=== PATIENT | female | born 1955 | race Caucasian/White ===

== ENCOUNTER 2018-05-20 02:48 | Inpatient (IN) | payer OTHER ==
[2018-05-20] MEDS ORDERED: SODIUM CHLORIDE 0.9% 1,000 ML IV STA (03:02)
--- NOTE | 2018-05-20 03:17 | ED ---
General Adult HPI - General Stated complaint: Abd pain Time Seen by Provider: 05/20/18 03:02 - History of Present Illness Initial comments: Milton Neumann is a 63-year-old female with a history of bowel resection and obstructions in the past with an ileostomy bag presents the ER today for evaluation of abdominal pain and decreased ileostomy output. Patient reports that she has not had an distraction or surgery in her abdomen for 12 years. She states that she was in her usual state of health until Monday. She emptied her ileostomy bag Monday morning. Throughout the day on Monday she's had progressively worsening abdominal pain and has not had any ileostomy output. This evening the pain became unbearable which prompted her come to the ER for evaluation. Patient reports she has severe nausea but is not experiencing any vomiting. - Related Data Home Medications Medication Instructions Recorded Confirmed Levothyroxine Sodium [Synthroid] 100 mcg PO DAILY 06/27/15 06/27/15 Mesalamine [Pentasa] 500 mg PO QID 06/27/15 06/27/15 Allergies Allergy/AdvReac Type Severity Reaction Status Date / Time Sulfa (Sulfonamide Allergy Unknown Verified 06/27/15 18:57 Antibiotics) Review of Systems ROS Statement: Those systems with pertinent positive or pertinent negative responses have been documented in the HPI. ROS Other: All systems not noted in ROS Statement are negative. Past Medical History Past Medical History: Thyroid Disorder Additional Past Medical History / Comment(s): chrons History of Any Multi-Drug Resistant Organisms: None Reported Past Surgical History: Bowel Resection, Cholecystectomy, Hysterectomy Additional Past Surgical History / Comment(s): colostomy, thyroidectomy Past Psychological History: No Psychological Hx Reported Past Alcohol Use History: None Reported Past Drug Use History: None Reported General Exam - General Exam Comments Initial Comments: Physical Exam GENERAL: Patient is well-developed and well-nourished. Patient is nontoxic and well- hydrated and is in no distress. HENT: Normocephalic, Atraumatic. EYES: PERRL, EOMI PULMONARY: Unlabored respirations. No audible rales rhonchi or wheezing was noted. CARDIOVASCULAR: There is a regular rate and rhythm without any murmurs gallops or rubs. ABDOMEN: Ileostomy bag and right lower quadrant with no output Abdomen is distended and tender SKIN: Skin is clear with no lesions or rashes and otherwise unremarkable. : Deferred NEUROLOGIC: Patient is alert and oriented x3. Moving all extremities spontaneously MUSCULOSKELETAL: Normal extremities with adequate strength and full range of motion. No lower extremity swelling or edema. No calf tenderness. PSYCHIATRIC: Normal psychiatric evaluation. Limitations: no limitations Course Vital Signs 05/20/18 03:31 Temperature 98.0 F Pulse Rate 67 Respiratory 16 Rate Blood Pressure 129/67 O2 Sat by Pulse 97 Oximetry Medical Decision Making - Medical Decision Making Patient was seen and evaluated, history is obtained from patient and EMS History and physical exam are concerning for bowel obstruction given the history of, nausea, abdominal distention and decreased ileostomy output X-ray does confirm small bowel instruction Labs with mildly elevated transaminases NG tube was placed, patient had 300cc of yellow gastric fluids drained Admission orders and general surgery consult placed - Lab Data Result diagrams: 05/20/18 04:03 05/20/18 04:03 Lab Results 05/20/18 05/20/18 05/20/18 Range/Units 04:03 04:03 04:03 WBC 8.5 (3.8-10.6) k/uL RBC 4.09 (3.80-5.40) m/uL Hgb 13.1 (11.4-16.0) gm/dL Hct 38.1 (34.0-46.0) % MCV 93.3 (80.0-100.0) fL MCH 32.2 (25.0-35.0) pg MCHC 34.4 (31.0-37.0) g/dL RDW 12.9 (11.5-15.5) % Plt Count 121 L (150-450) k/uL Neutrophils % 86 % Lymphocytes % 8 % Monocytes % 4 % Eosinophils % 0 % Basophils % 0 % Neutrophils # 7.3 (1.3-7.7) k/uL Lymphocytes # 0.7 L (1.0-4.8) k/uL Monocytes # 0.4 (0-1.0) k/uL Eosinophils # 0.0 (0-0.7) k/uL Basophils # 0.0 (0-0.2) k/uL PT (9.0-12.0) sec INR (<1.2) APTT (22.0-30.0) sec Sodium 140 (137-145) mmol/L Potassium 4.2 (3.5-5.1) mmol/L Chloride 106 (98-107) mmol/L Carbon Dioxide 28 (22-30) mmol/L Anion Gap 6 mmol/L BUN 24 H (7-17) mg/dL Creatinine 0.95 (0.52-1.04) mg/dL Est GFR (CKD-EPI)AfAm 75 (>60 ml/min/1.73 sqM) Est GFR (CKD-EPI)NonAf 65 (>60 ml/min/1.73 sqM) Glucose 115 H (74-99) mg/dL Plasma Lactic Acid Jose 1.8 (0.7-2.0) mmol/L Calcium 9.6 (8.4-10.2) mg/dL Total Bilirubin 1.8 H (0.2-1.3) mg/dL AST 40 H (14-36) U/L ALT 35 (9-52) U/L Alkaline Phosphatase 50 (38-126) U/L Total Protein 6.7 (6.3-8.2) g/dL Albumin 3.5 (3.5-5.0) g/dL Amylase 107 (30-110) U/L Lipase 290 (23-300) U/L Urine Color Urine Appearance (Clear) Urine pH (5.0-8.0) Ur Specific [place] (1.001-1.035) Urine Protein (Negative) Urine Glucose (UA) (Negative) Urine Ketones (Negative) Urine Blood (Negative) Urine Nitrite (Negative) Urine Bilirubin (Negative) Urine Urobilinogen (<2.0) mg/dL Ur Leukocyte Esterase (Negative) Urine RBC (0-5) /hpf Urine WBC (0-5) /hpf Urine WBC Clumps (None) /hpf Ur Squamous Epith Cells (0-4) /hpf Calcium Oxalate Crystal (None) /hpf Urine Bacteria (None) /hpf Urine Mucus (None) /hpf 05/20/18 05/20/18 Range/Units 04:03 04:03 WBC (3.8-10.6) k/uL RBC (3.80-5.40) m/uL Hgb (11.4-16.0) gm/dL Hct (34.0-46.0) % MCV (80.0-100.0) fL MCH (25.0-35.0) pg MCHC (31.0-37.0) g/dL RDW (11.5-15.5) % Plt Count (150-450) k/uL Neutrophils % % Lymphocytes % % Monocytes % % Eosinophils % % Basophils % % Neutrophils # (1.3-7.7) k/uL Lymphocytes # (1.0-4.8) k/uL Monocytes # (0-1.0) k/uL Eosinophils # (0-0.7) k/uL Basophils # (0-0.2) k/uL PT 9.4 (9.0-12.0) sec INR 0.9 (<1.2) APTT 18.1 L (22.0-30.0) sec Sodium (137-145) mmol/L Potassium (3.5-5.1) mmol/L Chloride (98-107) mmol/L Carbon Dioxide (22-30) mmol/L Anion Gap mmol/L BUN (7-17) mg/dL Creatinine (0.52-1.04) mg/dL Est GFR (CKD-EPI)AfAm (>60 ml/min/1.73 sqM) Est GFR (CKD-EPI)NonAf (>60 ml/min/1.73 sqM) Glucose (74-99) mg/dL Plasma Lactic Acid Jose (0.7-2.0) mmol/L Calcium (8.4-10.2) mg/dL Total Bilirubin (0.2-1.3) mg/dL AST (14-36) U/L ALT (9-52) U/L Alkaline Phosphatase (38-126) U/L Total Protein (6.3-8.2) g/dL Albumin (3.5-5.0) g/dL Amylase (30-110) U/L Lipase (23-300) U/L Urine Color Yellow Urine Appearance Clear (Clear) Urine pH 6.0 (5.0-8.0) Ur Specific [place] 1.021 (1.001-1.035) Urine Protein Trace H (Negative) Urine Glucose (UA) Negative (Negative) Urine Ketones Negative (Negative) Urine Blood Trace H (Negative) Urine Nitrite Negative (Negative) Urine Bilirubin Negative (Negative) Urine Urobilinogen <2.0 (<2.0) mg/dL Ur Leukocyte Esterase Moderate H (Negative) Urine RBC 6 H (0-5) /hpf Urine WBC 10 H (0-5) /hpf Urine WBC Clumps Rare H (None) /hpf Ur Squamous Epith Cells <1 (0-4) /hpf Calcium Oxalate Crystal Occasional H (None) /hpf Urine Bacteria Rare H (None) /hpf Urine Mucus Rare H (None) /hpf Disposition Clinical Impression: SBO (small bowel obstruction) Disposition: ADMITTED IP TO THIS HOSP Condition: Stable Is patient prescribed a controlled substance at d/c from ED?: No Referrals: Nancy Meehan MD [Primary Care Provider] - 1-2 days
[2018-05-20] MEDS: MORPHINE SULFATE 4 MG/ML SYRINGE IV STA ×2 (03:42→04:02)
[2018-05-20] MEDS ORDERED: MORPHINE SULFATE/PF 10MG/10ML VL IVP STA (03:59)
[2018-05-20] MEDS ORDERED: MORPHINE SULFATE 4 MG/ML SYRINGE IVP STA (03:59)
[2018-05-20] MEDS ORDERED: ONDANSETRON 4 MG/2 ML VIAL IVP STA (04:00)
--- NOTE | 2018-05-20 04:27 | XR ---
EXAMINATION TYPE: XR KUB DATE OF EXAM: 05/20/2018 COMPARISON: NONE HISTORY: Abdominal pain TECHNIQUE: 2 views FINDINGS: 2 upright views were obtained and show multiple small bowel air-fluid levels. Small bowel i s somewhat dilated. There are numerous surgical clips in the upper and lower abdomen. There is some i nfiltrate at the lateral left lung base. There are no pathologic calcifications over the kidneys. IMPRESSION: Dilated small bowel suggestive of a mechanical small bowel obstruction. Left lower lobe p neumonic infiltrate.
[2018-05-20 04:30] LABS: Albumin 3.5 g/dL (3.5-5.0); Appearance,Urine Clear (Clear); Bacteria,Urine Rare /hpf; Bilirubin,Urine Negative (Negative); Blood,Urine Trace (Negative); Calcium 9.6 mg/dL (8.4-10.2); Calcium Oxalate Crystals,Urine Occasional /hpf; Color,Urine Yellow; Glucose,Urine (UA) Negative (Negative); Ketones,Urine Negative (Negative); Leukocyte Esterase,Urine Moderate (Negative); Mucus,Urine Rare /hpf; Nitrite,Urine Negative (Negative); Potassium 4.2 mmol/L (3.5-5.1); Protein,Urine Trace (Negative); RBC,Urine 6 /hpf (0-5); Specific Gravity,Urine 1.021 (1.001-1.035); Squamous Epithelial Cell,Urine <1 /hpf (0-4); Total Bilirubin 1.8 mg/dL (0.2-1.3); Total Protein 6.7 g/dL (6.3-8.2); Urobilinogen,Urine <2.0 mg/dL (<2.0); WBC,Urine 10 /hpf (0-5)
[2018-05-20 04:33] LABS: Basophils % (A) 0 %; Eosinophils % (A) 0 %; HCT 38.1 % (34.0-46.0); HGB 13.1 gm/dL (11.4-16.0); Lymphocytes # (A) 0.7 k/uL (1.0-4.8); Lymphocytes % (A) 8 %; MCH 32.2 pg (25.0-35.0); MCHC 34.4 g/dL (31.0-37.0); MCV 93.3 fL (80.0-100.0); Mean Platelet Volume 7.2; Monocytes # (A) 0.4 k/uL (0-1.0); Monocytes % (A) 4 %; Neutrophils # (A) 7.3 k/uL (1.3-7.7); Neutrophils % (A) 86 %; Platelet Count 121 k/uL (150-450); RBC 4.09 m/uL (3.80-5.40); RDW 12.9 % (11.5-15.5); WBC 8.5 k/uL (3.8-10.6)
[2018-05-20 04:39] LABS: INR 0.9 (<1.2); Prothrombin Time 9.4 sec (9.0-12.0)
[2018-05-20 05:14] LABS: Partial Thromboplastin Time 18.1 sec (22.0-30.0)
[2018-05-20] MEDS ORDERED: MORPHINE SULFATE 4 MG/ML SYRINGE IV PRN (06:00)
[2018-05-20] MEDS ORDERED: ONDANSETRON 4 MG/2 ML VIAL IVP PRN ×2 (06:00→16:40)
[2018-05-20] MEDS ORDERED: NALOXONE 0.4 MG/ML 1 ML VIAL IV PRN (06:00)
[2018-05-20] MEDS: SODIUM CHLORIDE 0.9% 1,000 ML IV SCH ×2 (06:59→17:53)
[2018-05-20 08:00] VITALS: BMI 26.2
[2018-05-20] MEDS: PANTOPRAZOLE 40 MG/10 ML VIAL IV SCH (08:08)
[2018-05-20] MEDS ORDERED: KETOROLAC 30 MG/ML 1 ML VIAL IVP PRN (16:38)
[2018-05-20] MEDS ORDERED: ACETAMINOPHEN IV (For NPO) 1,000 MG in EMPTY BAG 1 BAG IVPB STA (17:40)
--- NOTE | 2018-05-20 19:15 | P.GSCN ---
History of Present Illness Consult date: 05/20/18 Reason for Consult: abdominal pain, small bowel obstruction History of present illness: The patient is a 63-year-old female who presented to the emergency department concerned about a bowel obstruction. She has a history of a colectomy due to Crohn's about 40 years ago. 12 years ago she developed a small bowel obstruction due to adhesions and had to have a resection. The symptoms seem the same with decreased ostomy output, abdominal pain and bloating. An NG tube was placed in the emergency department and her pain is improved. She is complaining of a headache. She denies any cough or shortness of breath. She denies any urinary burning or odor. She says frequently and her urine samples we'll look like an infection. Denies pneumouria. Denies fistulizing Crohn's disease. She did have a flareup of small bowel Crohn's about 2 years ago and was started on Humira. She had bleeding from a ulcer in the ileum which finally resolved a few months ago. No bleeding since that time. No fevers or chills. Her weight has been stable. Review of Systems All systems: negative Past Medical History Past Medical History: Thyroid Disorder Additional Past Medical History / Comment(s): crohns History of Any Multi-Drug Resistant Organisms: None Reported Past Surgical History: Bowel Resection, Cholecystectomy, Hysterectomy Additional Past Surgical History / Comment(s): ileostomy, thyroidectomy Past Anesthesia/Blood Transfusion Reactions: No Reported Reaction Past Psychological History: No Psychological Hx Reported Smoking Status: Former smoker Past Alcohol Use History: Rare Past Drug Use History: None Reported - Past Family History Daughter(s) Family Medical History: Diabetes Mellitus Medications and Allergies Home Medications Medication Instructions Recorded Confirmed Type Levothyroxine Sodium [Synthroid] 100 mcg PO MOTUWETHFRSA 06/27/15 05/20/18 History Mesalamine [Pentasa] 750 mg PO BID@0800,2100 06/27/15 05/20/18 History Adalimumab [Humira Pen] 40 mg SQ Q14D 05/20/18 05/20/18 History Cholecalciferol [Vitamin D3] 1,000 unit PO DAILY 05/20/18 05/20/18 History Ferrous Sulfate [Feosol] 325 mg PO DAILY 05/20/18 05/20/18 History Magnesium 200 mg PO DAILY 05/20/18 05/20/18 History Mesalamine [Pentasa] 500 mg PO DAILY@1200 05/20/18 05/20/18 History Allergies Allergy/AdvReac Type Severity Reaction Status Date / Time Sulfa (Sulfonamide Allergy Unknown Verified 05/20/18 07:16 Antibiotics) Surgical - Exam Osteopathic Statement: *. No significant issues noted on an osteopathic structural exam other than those noted in the History and Physical/Consult. Vital Signs Temp Pulse Resp BP Pulse Ox 98.0 F 67 16 129/67 97 05/20/18 03:31 05/20/18 03:31 05/20/18 03:31 05/20/18 03:31 05/20/18 03:31 - General well developed, well nourished, no distress - Eyes normal ocular movement - Neck trachea midline, no lymphadectomy - Respiratory normal respiratory effort, clear to auscultation - Cardiovascular Rhythm: regular - Abdomen Abdomen: soft, tender (Mild tenderness), bowel sounds, no guarding, no rigid, no rebound, no distended (No tympany to percussion) Results - Labs 05/20/18 04:03 05/20/18 04:03 Abnormal Lab Results - Last 24 Hours (Table) 05/20/18 05/20/18 05/20/18 Range/Units 04:03 04:03 04:03 Plt Count 121 L (150-450) k/uL Lymphocytes # 0.7 L (1.0-4.8) k/uL APTT 18.1 L (22.0-30.0) sec BUN 24 H (7-17) mg/dL Glucose 115 H (74-99) mg/dL Total Bilirubin 1.8 H (0.2-1.3) mg/dL AST 40 H (14-36) U/L Urine Protein (Negative) Urine Blood (Negative) Ur Leukocyte Esterase (Negative) Urine RBC (0-5) /hpf Urine WBC (0-5) /hpf Urine WBC Clumps (None) /hpf Calcium Oxalate Crystal (None) /hpf Urine Bacteria (None) /hpf Urine Mucus (None) /hpf 05/20/18 Range/Units 04:03 Plt Count (150-450) k/uL Lymphocytes # (1.0-4.8) k/uL APTT (22.0-30.0) sec BUN (7-17) mg/dL Glucose (74-99) mg/dL Total Bilirubin (0.2-1.3) mg/dL AST (14-36) U/L Urine Protein Trace H (Negative) Urine Blood Trace H (Negative) Ur Leukocyte Esterase Moderate H (Negative) Urine RBC 6 H (0-5) /hpf Urine WBC 10 H (0-5) /hpf Urine WBC Clumps Rare H (None) /hpf Calcium Oxalate Crystal Occasional H (None) /hpf Urine Bacteria Rare H (None) /hpf Urine Mucus Rare H (None) /hpf Diabetes panel 05/20/18 Range/Units 04:03 Sodium 140 (137-145) mmol/L Potassium 4.2 (3.5-5.1) mmol/L Chloride 106 (98-107) mmol/L Carbon Dioxide 28 (22-30) mmol/L BUN 24 H (7-17) mg/dL Creatinine 0.95 (0.52-1.04) mg/dL Glucose 115 H (74-99) mg/dL Calcium 9.6 (8.4-10.2) mg/dL AST 40 H (14-36) U/L ALT 35 (9-52) U/L Alkaline Phosphatase 50 (38-126) U/L Total Protein 6.7 (6.3-8.2) g/dL Albumin 3.5 (3.5-5.0) g/dL Calcium panel 05/20/18 Range/Units 04:03 Calcium 9.6 (8.4-10.2) mg/dL Albumin 3.5 (3.5-5.0) g/dL Pituitary panel 05/20/18 Range/Units 04:03 Sodium 140 (137-145) mmol/L Potassium 4.2 (3.5-5.1) mmol/L Chloride 106 (98-107) mmol/L Carbon Dioxide 28 (22-30) mmol/L BUN 24 H (7-17) mg/dL Creatinine 0.95 (0.52-1.04) mg/dL Glucose 115 H (74-99) mg/dL Calcium 9.6 (8.4-10.2) mg/dL Adrenal panel 05/20/18 Range/Units 04:03 Sodium 140 (137-145) mmol/L Potassium 4.2 (3.5-5.1) mmol/L Chloride 106 (98-107) mmol/L Carbon Dioxide 28 (22-30) mmol/L BUN 24 H (7-17) mg/dL Creatinine 0.95 (0.52-1.04) mg/dL Glucose 115 H (74-99) mg/dL Calcium 9.6 (8.4-10.2) mg/dL Total Bilirubin 1.8 H (0.2-1.3) mg/dL AST 40 H (14-36) U/L ALT 35 (9-52) U/L Alkaline Phosphatase 50 (38-126) U/L Total Protein 6.7 (6.3-8.2) g/dL Albumin 3.5 (3.5-5.0) g/dL - Imaging Abdominal x-ray: report reviewed, image reviewed Assessment and Plan (1) Crohns disease Current Visit: Yes Status: Acute Code(s): K50.90 - CROHN'S DISEASE, UNSPECIFIED, WITHOUT COMPLICATIONS SNOMED Code(s): 17581471 (2) SBO (small bowel obstruction) Current Visit: Yes Status: Acute Code(s): K56.609 - UNSP INTESTNL OBST, UNSP TO PARTIAL VERSUS COMPLETE OBST SNOMED Code(s): 173066180 Plan: The patient's been made nothing by mouth. NG tube has been placed. We'll do serial exams and serial x-rays. Check a urine culture to see if she has any urinary tract infection. She did receive a dose of ceftriaxone in the emergency department. Further recommendations to follow.
--- NOTE | 2018-05-20 23:09 | P.HPIM ---
History of Present Illness H&P Date: 05/20/18 Chief Complaint: Abdominal pain Patient is a 63-year-old female with a known history of Crohn's disease and colon resection with colostomy bag placement, lower extremity DVT and GI bleed currently not on any anticoagulation and the previous history of bowel obstruction about 12 years ago came to ER with complaints of abdominal pain and decreased ileostomy output for the past 2 days. Patient says that she felt like when she had bowel obstruction. Patient has been having worsening abdominal pain and has not had any ileostomy output. Patient came to ER for further evaluation. Abdominal x-ray is a history of bowel obstruction area patient was placed on NG tube and continued on IV fluids and pain management. Otherwise patient denied any complaints of chest pain or shortness of breath. No cough or sputum production. No fever no chills. No nausea vomiting or abdominal pain. No recent diarrhea. No recent illnesses. No recent travel. Patient did have GI bleed due to anticoagulation. Anticoagulation has been discontinued. Patient was placed on Humira. GI bleed has stopped about a year ago patient was discontinued on Humira currently. Review of Systems Constitutional: Patient denies any fever or chills . No generalized weakness or weight loss. Abdomen: Abdominal pain. No nausea no vomiting. Decreased output from the ileostomy bag. Cardiovascular: Patient denies any chest pain or short of breath no palpitations. Respiratory: patient denied any cough is from production. No shortness of breath Neurologic: Patient denied any numbness or tingling headache. Musculoskeletal: Patient denies any complaints of joint swelling or deformity. Skin: Negative Psychiatric: Negative Endocrine: No heat or cold intolerance. No recent weight gain. Genitourinary: No dysuria or hematuria. All other 14 point ROS negative except the above Past Medical History Past Medical History: Thyroid Disorder Additional Past Medical History / Comment(s): crohns History of Any Multi-Drug Resistant Organisms: None Reported Past Surgical History: Bowel Resection, Cholecystectomy, Hysterectomy Additional Past Surgical History / Comment(s): ileostomy, thyroidectomy Past Anesthesia/Blood Transfusion Reactions: No Reported Reaction Past Psychological History: No Psychological Hx Reported Smoking Status: Former smoker Past Alcohol Use History: Rare Past Drug Use History: None Reported - Past Family History Daughter(s) Family Medical History: Diabetes Mellitus Medications and Allergies Home Medications Medication Instructions Recorded Confirmed Type Levothyroxine Sodium [Synthroid] 100 mcg PO MOTUWETHFRSA 06/27/15 05/20/18 History Mesalamine [Pentasa] 750 mg PO BID@0800,2100 06/27/15 05/20/18 History Adalimumab [Humira Pen] 40 mg SQ Q14D 05/20/18 05/20/18 History Cholecalciferol [Vitamin D3] 1,000 unit PO DAILY 05/20/18 05/20/18 History Ferrous Sulfate [Feosol] 325 mg PO DAILY 05/20/18 05/20/18 History Magnesium 200 mg PO DAILY 05/20/18 05/20/18 History Mesalamine [Pentasa] 500 mg PO DAILY@1200 05/20/18 05/20/18 History Allergies Allergy/AdvReac Type Severity Reaction Status Date / Time Sulfa (Sulfonamide Allergy Unknown Verified 05/20/18 07:16 Antibiotics) Physical Exam Vitals: Vital Signs Temp Pulse Pulse Resp BP BP Pulse Ox 05/20/18 20:25 98.7 F 65 18 102/62 94 L 05/20/18 15:00 98.1 F 78 18 121/75 95 05/20/18 07:29 97.4 F L 72 16 107/66 96 05/20/18 07:13 97.7 F 68 16 125/70 98 05/20/18 03:31 98.0 F 67 16 129/67 97 Intake and Output 05/20/18 05/20/18 05/21/18 14:59 22:59 06:59 Other: # Voids 1 # Bowel Movements 1 Weight 63.049 kg PHYSICAL EXAMINATION: Patient is lying in the bed comfortably, no acute distress, awake alert and oriented.. HEENT: Normocephalic. Neck is supple. Pupils reactive. Nostrils clear. Oral cavity is moist. Ears reveal no drainage. Neck reveals no JVD, carotid bruits, or thyromegaly. CHEST EXAMINATION: Trachea is central. Symmetrical expansion. Lung witt clear to auscultation and percussion. CARDIAC: Normal S1, S2 with no gallops. No murmurs ABDOMEN: Soft. Bowel sounds diminished. Colostomy bag in place. No guarding no rigidity. No organomegaly. No abdominal bruits. Extremities: reveal no edema. No clubbing or cyanosis Neurologically awake, alert, oriented x3 with well-coordinated movements. No focal deficits noted Skin: No rash or skin lesions. Psychiatric: Coperative. Nonsuicidal Musculoskeletal: No joint swelling or deformity. Normal range of motion. Results CBC & Chem 7: 05/20/18 04:03 05/20/18 04:03 Labs: Abnormal Lab Results - Last 24 Hours (Table) 05/20/18 05/20/18 05/20/18 Range/Units 04:03 04:03 04:03 Plt Count 121 L (150-450) k/uL Lymphocytes # 0.7 L (1.0-4.8) k/uL APTT 18.1 L (22.0-30.0) sec BUN 24 H (7-17) mg/dL Glucose 115 H (74-99) mg/dL Total Bilirubin 1.8 H (0.2-1.3) mg/dL AST 40 H (14-36) U/L Urine Protein (Negative) Urine Blood (Negative) Ur Leukocyte Esterase (Negative) Urine RBC (0-5) /hpf Urine WBC (0-5) /hpf Urine WBC Clumps (None) /hpf Calcium Oxalate Crystal (None) /hpf Urine Bacteria (None) /hpf Urine Mucus (None) /hpf 05/20/18 Range/Units 04:03 Plt Count (150-450) k/uL Lymphocytes # (1.0-4.8) k/uL APTT (22.0-30.0) sec BUN (7-17) mg/dL Glucose (74-99) mg/dL Total Bilirubin (0.2-1.3) mg/dL AST (14-36) U/L Urine Protein Trace H (Negative) Urine Blood Trace H (Negative) Ur Leukocyte Esterase Moderate H (Negative) Urine RBC 6 H (0-5) /hpf Urine WBC 10 H (0-5) /hpf Urine WBC Clumps Rare H (None) /hpf Calcium Oxalate Crystal Occasional H (None) /hpf Urine Bacteria Rare H (None) /hpf Urine Mucus Rare H (None) /hpf Microbiology - Last 24 Hours (Table) 05/20/18 04:03 Urine Culture - Preliminary Urine,Voided Thrombosis Risk Factor Assmnt - DVT/VTE Prophylaxis DVT/VTE Prophylaxis: Mechanical Prophylaxis ordered - Choose All That Apply Each Risk Factor Represents 2 Points: Age 61-74 years Each Risk Factor Represents 3 Points: History of DVT/PE Thrombosis Risk Factor Assessment Total Risk Factor Score: 5 Thrombosis Risk Factor Assessment Level: High Risk Assessment and Plan Assessment: Abdominal pain secondary to acute small bowel obstruction History of bowel obstruction about 12 years ago status post lysis of adhesions Crohn's disease with history of colectomy about 40 years ago History of GI bleed History of lower extremity DVT DVT prophylaxis. Heparin was offered but patient refuses to take heparin subcu. Plan: Patient will be continued on IV hydration. Pain management and NG tube was placed. Continue with serial abdominal exam and x-rays. Gen. surgery was consulted. We will continue to follow and further recommendations based on the clinical course. Prognosis is guarded. Time with Patient: Greater than 30
[2018-05-21] MEDS: SODIUM CHLORIDE 0.9% 1,000 ML IV SCH ×3 (03:13→22:05)
[2018-05-21 08:24] LABS: Albumin 2.8 g/dL (3.5-5.0); Calcium 8.3 mg/dL (8.4-10.2); Total Bilirubin 3.6 mg/dL (0.2-1.3); Total Protein 5.7 g/dL (6.3-8.2)
--- NOTE | 2018-05-21 08:32 | XR ---
EXAMINATION TYPE: XR chest 2V DATE OF EXAM: 05/21/2018 COMPARISON: 06/27/2015 HISTORY: Weakness TECHNIQUE: Frontal and lateral views of the chest are obtained. FINDINGS: There is chronic interstitial prominence dating back to 2016. Mild multilevel degenerative changes of the spine are noted. Enteric tube has been placed with its fenestrated portion appearing just above the gastroesophageal junction. Advancement of at least 3 cm is recommended for optimal pato cement. No sizable pneumothorax or pleural effusion. Cardiomediastinal silhouette appears within norm al limits. Surgical clips are noted within the right mid abdomen. IMPRESSION: 1. Chronic changes with no acute cardiopulmonary process. 2. Slightly cephalad placement of the enteric tube which should be advanced approximately 3 cm for op timal placement.
[2018-05-21] MEDS: PANTOPRAZOLE 40 MG/10 ML VIAL IV SCH (08:33)
--- NOTE | 2018-05-21 08:41 | XR ---
EXAMINATION TYPE: XR KUB DATE OF EXAM: 05/21/2018 7:06 AM CLINICAL HISTORY: Small bowel obstruction. Questionable pneumonia. TECHNIQUE: Supine image of the abdomen was obtained. COMPARISON: FINDINGS: Few small bowel air-fluid levels remain within the pelvis although there is interval improv ement in comparison to the prior. Enteric tube has been placed again with its fenestrated portion abo ve the gastroesophageal junction with recommendation of advancement approximately 3 cm or more as dis cussed on the chest radiograph of the same date. No pneumoperitoneum is noted. Scattered surgical cli ps are noted throughout the abdomen and pelvis. [id number] bilateral femoral acetabular arthrop athy is seen. IMPRESSION: Improving small bowel dilatation and pelvic air-fluid levels in comparison to the prior o f 05/20/2018. As mentioned on the chest radiograph of the same date enteric tube could be advanced 3 cm or more for optimal placement.
[2018-05-21 08:45] LABS: Basophils # (A) 0.1 k/uL (0-0.2); Basophils % (A) 1 %; Eosinophils # (A) 0.1 k/uL (0-0.7); Eosinophils % (A) 2 %; HCT 35.5 % (34.0-46.0); HGB 11.8 gm/dL (11.4-16.0); Lymphocytes # (A) 1.1 k/uL (1.0-4.8); Lymphocytes % (A) 21 %; MCH 32.4 pg (25.0-35.0); MCHC 33.3 g/dL (31.0-37.0); MCV 97.4 fL (80.0-100.0); Mean Platelet Volume 7.5; Monocytes # (A) 0.4 k/uL (0-1.0); Monocytes % (A) 7 %; Neutrophils # (A) 3.6 k/uL (1.3-7.7); Neutrophils % (A) 67 %; Platelet Count 101 k/uL (150-450); RBC 3.65 m/uL (3.80-5.40); RDW 13.2 % (11.5-15.5); WBC 5.4 k/uL (3.8-10.6)
--- NOTE | 2018-05-21 11:34 | US ---
EXAMINATION TYPE: US abdomen complete DATE OF EXAM: 05/21/2018 COMPARISON: NONE CLINICAL HISTORY: elevated liver function tests. Elevated liver enzymes, cholecystectomy EXAM MEASUREMENTS: Liver Length: 14.1 cm Gallbladder Wall: Surgically absent CBD: 0.4 cm Spleen: 9.1 cm Right Kidney: 9.0 x 4.9 x 4.8 cm Left Kidney: 9.5 x 4.3 x 3.5 cm Technical limitations due to overlying bowel content Pancreas: Obscured by bowel gas Liver: appears wnl Gallbladder: Surgically absent Evidence for sonographic Olivia's sign: no CBD: wnl Spleen: wnl Right Kidney: no evidence of hydronephrosis Left Kidney: Simple appearing cystic area lower pole = 2.0 x 1.6 x 1.6cm Upper IVC: wnl Abd Aorta: visualized portions appear wnl IMPRESSION: 1. Visualized abdomen ultrasound appears unremarkable.
--- NOTE | 2018-05-21 13:17 | P.PN ---
Subjective Progress Note Date: 05/21/18 Principal diagnosis: Ileus versus small bowel obstruction The patient is seen on rounds. She's having less pain. She started having some watery output from the ileostomy. The patient does have a history of her bilirubin being elevated in the past. She denies noticing any jaundice. Denies any bleeding from the ileostomy. Objective - Vital Signs Vital signs: Vital Signs Temp 98.1 F 05/21/18 12:27 Pulse 59 L 05/21/18 12:27 Resp 20 05/21/18 12:27 BP 117/73 05/21/18 12:27 Pulse Ox 96 05/21/18 12:27 Intake & Output 05/20/18 05/21/18 05/21/18 18:59 06:59 18:59 Intake Total 240 Output Total 600 Balance -360 Weight 63.049 kg Intake: Oral 240 Output: Gastric Drainage 600 Other: # Voids 1 1 # Bowel Movements 1 1 # Emeses 1 - Constitutional General appearance: Present: cooperative, no acute distress - Respiratory Respiratory: bilateral: CTA - Cardiovascular Rhythm: regular - Gastrointestinal Gastrointestinal Comment(s): No tympany to percussion. Liquidy ileostomy output General gastrointestinal: Present: normal bowel sounds, soft. Absent: distended , tenderness - Labs CBC & Chem 7: 05/21/18 07:40 05/21/18 07:40 Labs: Abnormal Lab Results - Last 24 Hours (Table) 05/21/18 05/21/18 Range/Units 07:40 07:40 RBC 3.65 L (3.80-5.40) m/uL Plt Count 101 L (150-450) k/uL Chloride 115 H (98-107) mmol/L BUN 19 H (7-17) mg/dL Calcium 8.3 L (8.4-10.2) mg/dL Total Bilirubin 3.6 H (0.2-1.3) mg/dL AST 480 H (14-36) U/L ALT 542 H (9-52) U/L Total Protein 5.7 L (6.3-8.2) g/dL Albumin 2.8 L (3.5-5.0) g/dL Microbiology - Last 24 Hours (Table) 05/20/18 04:03 Urine Culture - Preliminary Urine,Voided - Imaging and Cardiology US - abdomen: report reviewed Assessment and Plan (1) Crohns disease Current Visit: Yes Status: Acute Code(s): K50.90 - CROHN'S DISEASE, UNSPECIFIED, WITHOUT COMPLICATIONS SNOMED Code(s): 00601077 (2) SBO (small bowel obstruction) Current Visit: Yes Status: Acute Code(s): K56.609 - UNSP INTESTNL OBST, UNSP TO PARTIAL VERSUS COMPLETE OBST SNOMED Code(s): 492641237 (3) Elevated liver function tests Current Visit: Yes Status: Acute Code(s): R94.5 - ABNORMAL RESULTS OF LIVER FUNCTION STUDIES SNOMED Code(s): 443012471 Plan: Clinically the patient is improved with regards to her ileus versus small bowel obstruction. The abdominal x-ray is improved in her ostomy is beginning to have output. Her liver function test in go up significantly overnight. Due to this and the fact that she's had Crohn's disease with an ulcer in the terminal ileum, I recommend a GI consult. We'll continue the NG tube decompression, hydration, repeat abdominal series in the morning. Further recommendations to follow.
[2018-05-21] MEDS: KETOROLAC 30 MG/ML 1 ML VIAL IVP PRN ×2 (16:24→22:22)
--- NOTE | 2018-05-22 08:18 | XR ---
EXAMINATION TYPE: XR abdomen 2V DATE OF EXAM: 05/22/2018 COMPARISON: 05/21/2018 HISTORY: Bowel obstruction TECHNIQUE: One view abdominal series FINDINGS: NG tube is seen and there is bilateral consolidation small pleural effusion. Surgical clips in the ab domen are noted there suggestion of an ostomy in the right upper quadrant. Surgical clips in the pelv is also noted. Arthropathy of the hips. Slight curvature of the spine. IMPRESSION: 1. No evidence of bowel dilation. Bowel gas pattern remains nonspecific. There is a right lower quadr ant ostomy. 2. small air collection along the right iliac bone likely contained within bowel. However, CT scan ab domen pelvis recommended to exclude a small amount of free air. Report called to the patient's nurse immediately
[2018-05-22 10:30] LABS: HCT 34.3 % (34.0-46.0); HGB 11.2 gm/dL (11.4-16.0); MCH 31.6 pg (25.0-35.0); MCHC 32.7 g/dL (31.0-37.0); MCV 96.8 fL (80.0-100.0); Mean Platelet Volume 7.4; RBC 3.54 m/uL (3.80-5.40); RDW 12.9 % (11.5-15.5); WBC 4.7 k/uL (3.8-10.6)
[2018-05-22] MEDS: PANTOPRAZOLE 40 MG/10 ML VIAL IV SCH (10:38)
[2018-05-22 10:50] LABS: Albumin 2.8 g/dL (3.5-5.0); Calcium 8.4 mg/dL (8.4-10.2); Potassium 4.3 mmol/L (3.5-5.1); Total Bilirubin 2.6 mg/dL (0.2-1.3); Total Protein 5.6 g/dL (6.3-8.2)
[2018-05-22 10:54] LABS: Platelet Count 89 k/uL (150-450)
--- NOTE | 2018-05-22 11:06 | P.PN ---
Subjective Progress Note Date: 05/22/18 The patient seen on rounds. She's feeling better. She is hungry. Denies any pain. Has had some minimal ileostomy output. Objective - Vital Signs Vital signs: Vital Signs Temp 97.5 F L 05/22/18 08:12 Pulse 56 L 05/22/18 08:12 Resp 18 05/22/18 08:12 BP 126/65 05/22/18 08:12 Pulse Ox 95 05/22/18 08:12 Intake & Output 05/21/18 05/22/18 05/22/18 18:59 06:59 18:59 Intake Total 2045 Output Total 600 500 Balance -600 1545 Intake: Intake, IV Titration 2000 Amount Sodium Chloride 0.9% 1, 2000 000 ml @ 100 mls/hr IV . Q10H DARLENE Rx#:[id number] Oral 45 Output: Gastric Drainage 600 400 Stool 100 Other: Voiding Method Toilet # Voids 3 1 - Constitutional General appearance: Present: cooperative, no acute distress - Respiratory Respiratory: bilateral: CTA - Gastrointestinal General gastrointestinal: Present: normal bowel sounds, soft. Absent: distended , tenderness - Labs CBC & Chem 7: 05/22/18 10:23 05/22/18 10:23 Labs: Abnormal Lab Results - Last 24 Hours (Table) 05/22/18 05/22/18 Range/Units 10:23 10:23 RBC 3.54 L (3.80-5.40) m/uL Hgb 11.2 L (11.4-16.0) gm/dL Plt Count 89 L (150-450) k/uL Chloride 116 H (98-107) mmol/L Carbon Dioxide 19 L (22-30) mmol/L BUN 22 H (7-17) mg/dL Glucose 73 L (74-99) mg/dL Total Bilirubin 2.6 H (0.2-1.3) mg/dL AST 141 H (14-36) U/L ALT 349 H (9-52) U/L Total Protein 5.6 L (6.3-8.2) g/dL Albumin 2.8 L (3.5-5.0) g/dL Microbiology - Last 24 Hours (Table) 05/20/18 04:03 Urine Culture - Final Urine,Voided - Imaging and Cardiology Abdominal x-ray: report reviewed, image reviewed Assessment and Plan (1) Crohns disease Current Visit: Yes Status: Acute Code(s): K50.90 - CROHN'S DISEASE, UNSPECIFIED, WITHOUT COMPLICATIONS SNOMED Code(s): 54212112 (2) SBO (small bowel obstruction) Current Visit: Yes Status: Acute Code(s): K56.609 - UNSP INTESTNL OBST, UNSP TO PARTIAL VERSUS COMPLETE OBST SNOMED Code(s): 847675204 (3) Elevated liver function tests Current Visit: Yes Status: Acute Code(s): R94.5 - ABNORMAL RESULTS OF LIVER FUNCTION STUDIES SNOMED Code(s): 957307155 Plan: Abdominal x-ray has shown improvement regarding the ileus versus small bowel obstruction. There was a question of free air, her belly is totally benign though. Clamp her NG tube. If she is able to tolerate it start her on some clear liquids later and discontinue the NG if she tolerates clear liquids. Await evaluation by GI. Appreciate their input regarding the elevation of the liver function tests and also fact that she had Crohn's with a ulcer in the distal ileum. Her symptoms could be on the basis of Crohn's disease and there may need additional medical treatment. Further recommendations to follow.
--- NOTE | 2018-05-22 11:13 | CT ---
EXAMINATION TYPE: CT abdomen pelvis w con DATE OF EXAM: 05/22/2018 COMPARISON: Correlation radiographs same date HISTORY: 63-year-old female abnormal xray, possible free air TECHNIQUE: Contiguous axial scanning of the abdomen and pelvis following administration of 100 ml Iso rogers 300 IV contrast. Delayed images through the kidneys and coronal/sagittal reconstructions perform ed. CT DLP: 401.6 mGycm Automated exposure control for dose reduction was used. FINDINGS: Heart upper limits of normal in size. Small bilateral pleural effusions are present with bands of ate lectasis at the lung bases. NG tube is in place decompressing the stomach. NG tube tip sharply abuts the right lateral wall at th e junction of the first and second portions of the duodenum and referred to coronal image 22. No focal liver lesion or biliary ductal dilatation. Cholecystectomy clips are present. Portal venous system is patent. Adrenal glands, right kidney, spleen, and pancreas appear within normal limits. Benign 1.6 cm cortica l cyst lower pole left kidney. Postsurgical changes throughout the abdomen with evidence of prior small bowel resection and right lo wer quadrant ileostomy. There seems to be a colectomy with distal Keita's pouch. There is a mesenteric fatty parastomal hernia measuring 6.4 cm wide with the neck of the hernia measu ring 1.9 cm wide. Loops of moderately thickened small bowel are present in the right lower quadrant and right side of t he pelvis with adjacent fat stranding. No abnormal bowel dilatation. No pneumatosis or portal venous gas seen. No free air. No mesenteric or retroperitoneal lymphadenopathy. Small amount of strandy free fluid in the pelvis likely reactive. No pelvic lymphadenopathy. Multiple surgical clips in the pelvis. Bones: Mild degenerative changes at the hips. Facet arthropathy lower lumbar spine with grade 1 anter olisthesis at L5-S1. 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 IMPRESSION: 1. Status post colectomy with distal Keita's pouch and a right lower quadrant ileostomy. Parastomal hernia contains mesenteric fat measuring 6.4 cm wide and the hernia neck measures 1.9 cm wide. 2. Loops of moderately thickened and inflamed small bowel in the right lower quadrant and right side of the pelvis suggesting nonspecific ileitis with infectious or inflammatory causes favored. No signi ficant atherosclerotic disease or filling defect within the portal venous system to suggest an ischem ic etiology. 3. Mild free fluid in the pelvis likely reactive. No free air. 4. An NG tube is present. Note that the tip of the NG tube projects to the right, sharply tenting the wall of the duodenum at the junction of the first and second portions. Consider slightly withdrawing the NG tube to release some tension on the bowel wall here. 5. Small bilateral pleural effusions with adjacent atelectasis.
[2018-05-22] MEDS: SODIUM CHLORIDE 0.9% 1,000 ML IV SCH ×2 (14:44→15:44)
[2018-05-22] MEDS ORDERED: methylPREDNISolone SOD SUCCI 40 MG/ML 1 ML VIAL IV SCH (19:00)
[2018-05-22] MEDS ORDERED: LEVOTHYROXINE 100 MCG TAB PO SCH (19:00)
--- NOTE | 2018-05-22 19:11 | P.CONS ---
History of Present Illness - Reason for Consult Consult date: 05/22/18 Crohn's Requesting physician: Lynsey Saul - Chief Complaint Abdominal pain, decreased output from ostomy - History of Present Illness Very pleasant 63-year-old female with a medical history significant for thyroid disorder as well as ileal Crohn's disease who presented with symptoms of decreased output from ostomy, abdominal distention and pain. On presentation to the hospital the patient had imaging and symptoms suggestive of a bowel obstruction and was started on conservative therapy with nothing by mouth status , and NG tube for decompression. Overall the patient is feeling better, however still has minimal output from the NG tube. The patient has a 42 year history of Crohn's disease originally requiring colectomy with distal Keita pouch formation. The patient had a bowel obstruction in 2006 which she reports was secondary to scar tissue/adhesions. She reports that she has been on biologic therapy for approximately one year after having serologic evidence of active Crohn's disease. The patient underwent ileoscopy in 08/2017 which showed active ulcer formation in the ileum. She reports at that time she was noting blood from her ostomy, however this has resolved while on Humira therapy, which she takes every 2 weeks. Her last dose was prior to admission, less than one week ago. She denies any nausea or vomiting at this time. On presentation she was also noted to have elevation in her liver enzymes with a total bilirubin 2.6 , alkaline phosphatase 87, AST 141 and ALT 349. She reports that this is been seen in the past. She reports intermittently having elevation in her total bilirubin. She is unsure of what investigation she has undergone in the past. Ultrasound showed a common bile duct of 0.4 cm with a surgically absent gallbladder. The patient also had a computed tomography scan which showed findings suggestive of prior colectomy with distal Keita pouch formation and a right lower quadrant ileostomy, with the addition of thickening and inflammation of loops of small bowel suggestive of a nonspecific ileitis. Review of Systems REVIEW OF SYSTEMS: CARDIO: Denies any chest pain or palpitations. PULMONARY: Denies any shortness of breath or wheezing. GENITOURINARY: No dysuria or hematuria. MUSCULOSKELETAL: No weakness reported. SKIN: Denies any new rashes or lesions, jaundice or pallor. PSYCHIATRIC: Denies any depression or anxiety. NEUROLOGY: Denies headache, denies any new focal deficits. EARS: No tinnitus, discharge or new hearing loss. NOSE: No discharge or congestion. EYES: No pain in eyes or change in vision. CONSTITUTIONAL: No recent weight loss. No fever, chills, night sweats. Past Medical History Past Medical History: Thyroid Disorder Additional Past Medical History / Comment(s): crohns History of Any Multi-Drug Resistant Organisms: None Reported Past Surgical History: Bowel Resection, Cholecystectomy, Hysterectomy Additional Past Surgical History / Comment(s): ileostomy, thyroidectomy Past Anesthesia/Blood Transfusion Reactions: No Reported Reaction Past Psychological History: No Psychological Hx Reported Smoking Status: Former smoker Past Alcohol Use History: Rare Past Drug Use History: None Reported - Past Family History Daughter(s) Family Medical History: Diabetes Mellitus Medications and Allergies Home Medications Medication Instructions Recorded Confirmed Type Levothyroxine Sodium [Synthroid] 100 mcg PO MOTUWETHFRSA 06/27/15 05/20/18 History Mesalamine [Pentasa] 750 mg PO BID@0800,2100 06/27/15 05/20/18 History Adalimumab [Humira Pen] 40 mg SQ Q14D 05/20/18 05/20/18 History Cholecalciferol [Vitamin D3] 1,000 unit PO DAILY 05/20/18 05/20/18 History Ferrous Sulfate [Feosol] 325 mg PO DAILY 05/20/18 05/20/18 History Magnesium 200 mg PO DAILY 05/20/18 05/20/18 History Mesalamine [Pentasa] 500 mg PO DAILY@1200 05/20/18 05/20/18 History Allergies Allergy/AdvReac Type Severity Reaction Status Date / Time Sulfa (Sulfonamide Allergy Unknown Verified 05/20/18 07:16 Antibiotics) Physical Exam Vitals: Vital Signs Temp Pulse Pulse Resp BP Pulse Ox 05/22/18 17:04 98.4 F 56 L 20 134/73 96 05/22/18 15:12 56 L 05/22/18 13:06 56 L 05/22/18 12:41 97.4 F L 48 L 18 126/70 97 05/22/18 08:12 97.5 F L 56 L 18 126/65 95 05/22/18 08:00 56 L 05/21/18 23:16 98 F 57 L 18 121/74 94 L Intake and Output 05/22/18 05/22/18 05/22/18 06:59 14:59 22:59 Intake Total 1000 690 Output Total 500 130 470 Balance 500 -130 220 Intake: Intake, IV Titration 1000 Amount Sodium Chloride 0.9% 1, 1000 000 ml @ 100 mls/hr IV . Q10H DARLENE Rx#:[id number] Oral 690 Output: Gastric Drainage 400 130 Stool 100 470 Other: # Voids 1 1 1 On physical examination, patient appears comfortable in no apparent distress. HEAD: Normocephalic, atraumatic. EYES: No scleral icterus. No conjunctival injection. MOUTH: No lesions, tongue midline. NECK: Trachea midline, no gross abnormalities. CHEST: Clear to auscultation with no wheezing or rhonchi appreciated. HEART: Regular rate and rhythm. ABDOMEN: Soft, obese, with ileostomy appearing healthy with minimal output noted. Bowel sounds are positive. No organomegaly. No guarding or rigidity. EXTREMITIES: No pedal edema. SKIN: No rashes, no jaundice. NEUROLOGIC: Alert and oriented x3. No focal deficits. Results CBC & Chem 7: 05/22/18 10:23 05/22/18 10:23 Labs: Abnormal Lab Results - Last 24 Hours (Table) 05/22/18 05/22/18 Range/Units 10:23 10:23 RBC 3.54 L (3.80-5.40) m/uL Hgb 11.2 L (11.4-16.0) gm/dL Plt Count 89 L (150-450) k/uL Chloride 116 H (98-107) mmol/L Carbon Dioxide 19 L (22-30) mmol/L BUN 22 H (7-17) mg/dL Glucose 73 L (74-99) mg/dL Total Bilirubin 2.6 H (0.2-1.3) mg/dL AST 141 H (14-36) U/L ALT 349 H (9-52) U/L Total Protein 5.6 L (6.3-8.2) g/dL Albumin 2.8 L (3.5-5.0) g/dL Microbiology - Last 24 Hours (Table) 05/20/18 04:03 Urine Culture - Final Urine,Voided CT scan - abdomen: report reviewed (computed tomography scan which showed findings suggestive of prior colectomy with distal Keita pouch formation and a right lower quadrant ileostomy, with the addition of thickening and inflammation of loops of small bowel suggestive of a nonspecific ileitis.) Assessment and Plan (1) Crohns disease Narrative/Plan: 40 year history of Crohn's disease requiring prior colectomy with Miki pouch formation. The patient reports a long history of remission, however has been on biologic therapy for over 1 year with Humira with Pentasa as well. She reports that initially prior to be starting on therapy she had noticed blood from her ostomy, however this is resolved on Humira therapy. She reports a remote history of fistula arising disease when first diagnosed in the . She has followed up with a squaring shear operator at [facility]. Current Visit: Yes Status: Acute Code(s): K50.90 - CROHN'S DISEASE, UNSPECIFIED, WITHOUT COMPLICATIONS SNOMED Code(s): 82241488 (2) Elevated liver function tests Narrative/Plan: Unknown etiology, with ultrasound significant for a surgically absent gallbladder with a normal common bile duct. Elevation is both in a cholestatic and hepatocellular pattern. She does note that she has had intermittently high bilirubin in the past. We'll fractionate bilirubin to see if this is direct or indirect. In addition will order a full serology for evaluation. Current Visit: Yes Status: Acute Code(s): R94.5 - ABNORMAL RESULTS OF LIVER FUNCTION STUDIES SNOMED Code(s): 338171903 (3) SBO (small bowel obstruction) Narrative/Plan: Patient has had obstruction in the past due to adhesions secondary to prior abdominal surgeries, however computed tomography scan at this time shows thickening and inflammation of the distal small bowel suggestive of possible active Crohn's disease. Inflammatory markers have been ordered and will start steroid therapy at this time. Current Visit: Yes Status: Acute Code(s): K56.609 - UNSP INTESTNL OBST, UNSP TO PARTIAL VERSUS COMPLETE OBST SNOMED Code(s): 730626197 Plan: Supportive care Diet per surgical service NG tube for surgical service Appreciate recommendations from surgery Solu-Medrol 20 mg every 8 hours added given findings of inflammation on computed tomography scan Await findings from inflammatory markers, ESR and CRP pending Patient has had elevated total bilirubin in the past, however at this time she has both an increase in her liver enzymes in a hepatocellular and cholestatic pattern and will order a full liver serologies for evaluation Thank you for allowing us to dysphagia in the care of this patient we will continue
[2018-05-23] MEDS: SODIUM CHLORIDE 0.9% 1,000 ML IV SCH (01:15)
--- NOTE | 2018-05-23 01:20 | P.PN ---
Subjective Progress Note Date: 05/21/18 Principal diagnosis: Acute small bowel obstruction Patient is a 63-year-old female with a known history of Crohn's disease and colon resection with colostomy bag placement, lower extremity DVT and GI bleed currently not on any anticoagulation and the previous history of bowel obstruction about 12 years ago came to ER with complaints of abdominal pain and decreased ileostomy output for the past 2 days. Patient says that she felt like when she had bowel obstruction. Patient has been having worsening abdominal pain and has not had any ileostomy output. Patient came to ER for further evaluation. Abdominal x-ray is a history of bowel obstruction area patient was placed on NG tube and continued on IV fluids and pain management. Otherwise patient denied any complaints of chest pain or shortness of breath. No cough or sputum production. No fever no chills. No nausea vomiting or abdominal pain. No recent diarrhea. No recent illnesses. No recent travel. Patient did have GI bleed due to anticoagulation. Anticoagulation has been discontinued. Patient was placed on Humira. GI bleed has stopped about a year ago patient was discontinued on Humira currently. 05/21/2018 Patient says that abdominal pain is better. Otherwise continued on NG tube with short action. No fever no chills. General surgery is following. Continued on serial abdominal x-rays. Epigastric and oncology was consulted due to history of Crohn's disease and further management. No fever no chills. No nausea or vomiting. No headache or dizziness or lightheadedness. No chest pain or shortness of breath. Current medications reviewed Objective - Vital Signs Vital signs: Vital Signs Temp 97.9 F 05/23/18 00:29 Pulse 52 L 05/23/18 00:29 Resp 19 05/23/18 00:29 BP 127/80 05/23/18 00:29 Pulse Ox 94 L 05/23/18 00:29 Intake & Output 05/22/18 05/22/18 05/23/18 06:59 18:59 06:59 Intake Total 2045 690 850 Output Total 500 600 950 Balance 1545 90 -100 Intake: Intake, IV Titration 2000 Amount Sodium Chloride 0.9% 1, 2000 000 ml @ 100 mls/hr IV . Q10H DARLENE Rx#:[id number] Oral 45 690 850 Output: Gastric Drainage 400 130 Stool 100 470 950 Other: Voiding Method Toilet Toilet # Voids 1 1 1 - Exam PHYSICAL EXAMINATION: Patient is lying in the bed comfortably, no acute distress, awake alert and oriented.. HEENT: Normocephalic. Neck is supple. Pupils reactive. Nostrils clear. Oral cavity is moist. Ears reveal no drainage. Neck reveals no JVD, carotid bruits, or thyromegaly. CHEST EXAMINATION: Trachea is central. Symmetrical expansion. Lung witt clear to auscultation and percussion. CARDIAC: Normal S1, S2 with no gallops. No murmurs ABDOMEN: Soft. Bowel sounds diminished. Colostomy bag in place. No guarding no rigidity. No organomegaly. No abdominal bruits. Extremities: reveal no edema. No clubbing or cyanosis Neurologically awake, alert, oriented x3 with well-coordinated movements. No focal deficits noted Skin: No rash or skin lesions. Psychiatric: Coperative. Nonsuicidal Musculoskeletal: No joint swelling or deformity. Normal range of motion. - Labs CBC & Chem 7: 05/22/18 10:23 05/22/18 10:23 Labs: Abnormal Lab Results - Last 24 Hours (Table) 05/22/18 05/22/18 Range/Units 10:23 10:23 RBC 3.54 L (3.80-5.40) m/uL Hgb 11.2 L (11.4-16.0) gm/dL Plt Count 89 L (150-450) k/uL Chloride 116 H (98-107) mmol/L Carbon Dioxide 19 L (22-30) mmol/L BUN 22 H (7-17) mg/dL Glucose 73 L (74-99) mg/dL Total Bilirubin 2.6 H (0.2-1.3) mg/dL AST 141 H (14-36) U/L ALT 349 H (9-52) U/L Total Protein 5.6 L (6.3-8.2) g/dL Albumin 2.8 L (3.5-5.0) g/dL Assessment and Plan Assessment: Abdominal pain secondary to acute small bowel obstruction History of bowel obstruction about 12 years ago status post lysis of adhesions Crohn's disease with history of colectomy about 40 years ago History of GI bleed History of lower extremity DVT DVT prophylaxis. Heparin was offered but patient refuses to take heparin subcu. Plan: Patient will be continued on IV hydration. Pain management and NG tube was placed. Continue with serial abdominal exam and x-rays. Gen. surgery is following. We will continue to follow and further recommendations based on the clinical course. Prognosis is guarded. Time with Patient: Greater than 30
--- NOTE | 2018-05-23 01:24 | P.PN ---
Subjective Progress Note Date: 05/22/18 Principal diagnosis: Acute small bowel obstruction Patient is a 63-year-old female with a known history of Crohn's disease and colon resection with colostomy bag placement, lower extremity DVT and GI bleed currently not on any anticoagulation and the previous history of bowel obstruction about 12 years ago came to ER with complaints of abdominal pain and decreased ileostomy output for the past 2 days. Patient says that she felt like when she had bowel obstruction. Patient has been having worsening abdominal pain and has not had any ileostomy output. Patient came to ER for further evaluation. Abdominal x-ray is a history of bowel obstruction area patient was placed on NG tube and continued on IV fluids and pain management. Otherwise patient denied any complaints of chest pain or shortness of breath. No cough or sputum production. No fever no chills. No nausea vomiting or abdominal pain. No recent diarrhea. No recent illnesses. No recent travel. Patient did have GI bleed due to anticoagulation. Anticoagulation has been discontinued. Patient was placed on Humira. GI bleed has stopped about a year ago patient was discontinued on Humira currently. 05/21/2018 Patient says that abdominal pain is better. Otherwise continued on NG tube with short action. No fever no chills. General surgery is following. Continued on serial abdominal x-rays. Epigastric and oncology was consulted due to history of Crohn's disease and further management. No fever no chills. No nausea or vomiting. No headache or dizziness or lightheadedness. No chest pain or shortness of breath. 05/22/2018 Patient says that she feels better today. Did have minimal output into question back. NG tube has been capped and patient was started on clear liquid diet. General surgery is following. Patient did have abdominal x-ray in the a.m. today was suspicious for free air in the abdomen. CT of the abdominal pelvis was done which showed no evidence of free air. Gastroenterology was consulted for Crohn's disease management. Otherwise no fever no chills. Symptomatically much improved. Current medications reviewed Objective - Vital Signs Vital signs: Vital Signs Temp 97.7 F 05/22/18 20:09 Pulse 48 L 05/22/18 20:09 Resp 20 05/22/18 20:09 BP 134/80 05/22/18 20:09 Pulse Ox 98 05/22/18 20:09 Intake & Output 05/22/18 05/22/18 05/23/18 06:59 18:59 06:59 Intake Total 204 690 850 Output Total 500 600 800 Balance 1545 90 50 Intake: Intake, IV Titration 2000 Amount Sodium Chloride 0.9% 1, 2000 000 ml @ 100 mls/hr IV . Q10H [facility] Rx#:[id number] Oral 45 690 850 Output: Gastric Drainage 400 130 Stool 100 470 800 Other: Voiding Method Toilet Toilet # Voids 1 1 1 - Exam PHYSICAL EXAMINATION: Patient is lying in the bed comfortably, no acute distress, awake alert and oriented.. HEENT: Normocephalic. Neck is supple. Pupils reactive. Nostrils clear. Oral cavity is moist. Ears reveal no drainage. Neck reveals no JVD, carotid bruits, or thyromegaly. CHEST EXAMINATION: Trachea is central. Symmetrical expansion. Lung witt clear to auscultation and percussion. CARDIAC: Normal S1, S2 with no gallops. No murmurs ABDOMEN: Soft. Bowel sounds sluggish. Colostomy bag in place. No guarding no rigidity. No organomegaly. No abdominal bruits. Extremities: reveal no edema. No clubbing or cyanosis Neurologically awake, alert, oriented x3 with well-coordinated movements. No focal deficits noted Skin: No rash or skin lesions. Psychiatric: Coperative. Nonsuicidal Musculoskeletal: No joint swelling or deformity. Normal range of motion. - Labs CBC & Chem 7: 05/22/18 10:23 05/22/18 10:23 Labs: Abnormal Lab Results - Last 24 Hours (Table) 05/22/18 05/22/18 Range/Units 10:23 10:23 RBC 3.54 L (3.80-5.40) m/uL Hgb 11.2 L (11.4-16.0) gm/dL Plt Count 89 L (150-450) k/uL Chloride 116 H (98-107) mmol/L Carbon Dioxide 19 L (22-30) mmol/L BUN 22 H (7-17) mg/dL Glucose 73 L (74-99) mg/dL Total Bilirubin 2.6 H (0.2-1.3) mg/dL AST 141 H (14-36) U/L ALT 349 H (9-52) U/L Total Protein 5.6 L (6.3-8.2) g/dL Albumin 2.8 L (3.5-5.0) g/dL Microbiology - Last 24 Hours (Table) 05/20/18 04:03 Urine Culture - Final Urine,Voided Assessment and Plan Assessment: Abdominal pain secondary to acute small bowel obstruction. Improving History of bowel obstruction about 12 years ago status post lysis of adhesions Crohn's disease with history of colectomy about 40 years ago History of GI bleed History of lower extremity DVT DVT prophylaxis. Heparin was offered but patient refuses to take heparin subcu. Plan: Patient will be continued on IV hydration. Pain management and NG tube was placed. Continue with serial abdominal exam and x-rays. Patient is clinically improving with minimal output in the colostomy bag. Patient was started on clear liquid diet. Gen. surgery is following. Gastroenterology was consulted. We will continue to follow and further recommendations based on the clinical course. Prognosis is guarded. Time with Patient: Greater than 30
[2018-05-23] MEDS: methylPREDNISolone SOD SUCCI 40 MG/ML 1 ML VIAL IV SCH ×2 (04:01→10:54)
[2018-05-23] MEDS: LEVOTHYROXINE 100 MCG TAB PO SCH (05:49)
[2018-05-23] MEDS: PANTOPRAZOLE 40 MG/10 ML VIAL IV SCH (08:00)
--- NOTE | 2018-05-23 08:12 | P.PN ---
Subjective Progress Note Date: 05/23/18 Principal diagnosis: Small bowel obstruction elevated liver enzymes Crohn's disease Feels better. Ostomy functioning. Denies abdominal pain. Towering clear liquids. ESR CRP within normal limits. Receiving IV steroids. Afebrile. Objective - Vital Signs Vital signs: Vital Signs Temp 97.9 F 05/23/18 00:29 Pulse 52 L 05/23/18 00:29 Resp 19 05/23/18 00:29 BP 127/80 05/23/18 00:29 Pulse Ox 94 L 05/23/18 00:29 Intake & Output 05/22/18 05/23/18 05/23/18 18:59 06:59 18:59 Intake Total 690 2390 Output Total 600 1350 Balance 90 1040 Intake: Intake, IV Titration 1000 Amount Sodium Chloride 0.9% 1, 1000 000 ml @ 100 mls/hr IV . Q10H [facility] Rx#:[id number] Oral 690 1390 Output: Gastric Drainage 130 Stool 470 1350 Other: Voiding Method Toilet # Voids 1 1 - Exam General appearance: The patient is alert, oriented, in no acute distress. HET: Head is normocephalic and atraumatic. Pupils are equal and reactive. Oropharynx is clear without lesions. Neck: Supple without lymphadenopathy. Trachea midline. Heart: S1 S2. Regular rate and rhythm. Lungs: No crackles or wheezes are heard. Abdomen: Soft, nontender, nondistended with hypoactive bowel sounds. Right- sided ostomy with stool. No peritoneal signs. No palpable organomegaly or masses. Extremities: Normal skin color and turgor. No cyanosis, rash, ulceration, clubbing, or edema. Radial and pedal pulses are 2/4 bilaterally. Neurological: No focal deficits. Strength and sensation are grossly intact. - Labs CBC & Chem 7: 05/22/18 10:23 05/22/18 10:23 Labs: Abnormal Lab Results - Last 24 Hours (Table) 05/22/18 05/22/18 Range/Units 10:23 10:23 RBC 3.54 L (3.80-5.40) m/uL Hgb 11.2 L (11.4-16.0) gm/dL Plt Count 89 L (150-450) k/uL Chloride 116 H (98-107) mmol/L Carbon Dioxide 19 L (22-30) mmol/L BUN 22 H (7-17) mg/dL Glucose 73 L (74-99) mg/dL Total Bilirubin 2.6 H (0.2-1.3) mg/dL AST 141 H (14-36) U/L ALT 349 H (9-52) U/L Total Protein 5.6 L (6.3-8.2) g/dL Albumin 2.8 L (3.5-5.0) g/dL Assessment and Plan (1) Crohns disease Current Visit: Yes Status: Acute Code(s): K50.90 - CROHN'S DISEASE, UNSPECIFIED, WITHOUT COMPLICATIONS SNOMED Code(s): 27537691 (2) Elevated liver function tests Current Visit: Yes Status: Acute Code(s): R94.5 - ABNORMAL RESULTS OF LIVER FUNCTION STUDIES SNOMED Code(s): 062749737 (3) SBO (small bowel obstruction) Current Visit: Yes Status: Acute Code(s): K56.609 - UNSP INTESTNL OBST, UNSP TO PARTIAL VERSUS COMPLETE OBST SNOMED Code(s): 211735632 Plan: 1. Diet advancement per general surgery. 2. Morning chemistries/LFTs pending. Lactic workup for elevated liver enzymes requested. Will discontinue steroids sed rate CRP not elevated; patient also verbalized not wanting to receive steroids if necessary. Assessment and plan a care discussed with Dr. Gomez
[2018-05-23 10:35] LABS: Albumin 3.2 g/dL (3.5-5.0); Bilirubin,Unconjugated 1.8 mg/dL (0.0-1.1); Total Bilirubin 1.8 mg/dL (0.2-1.3); Total Protein 6.2 g/dL (6.3-8.2)
--- NOTE | 2018-05-23 11:13 | P.PN ---
Subjective Progress Note Date: 05/23/18 The patient seen on rounds. She's feeling better today. No nausea or vomiting. Tolerating clear liquids. She like more to eat. Complaining of urinating large amounts. Objective - Vital Signs Vital signs: Vital Signs Temp 98.6 F 05/23/18 08:23 Pulse 49 L 05/23/18 08:49 Resp 16 05/23/18 08:23 BP 127/72 05/23/18 08:23 Pulse Ox 94 L 05/23/18 08:23 Intake & Output 05/22/18 05/23/18 05/23/18 18:59 06:59 18:59 Intake Total 690 2390 Output Total 600 1350 50 Balance 90 1040 -50 Intake: Intake, IV Titration 1000 Amount Sodium Chloride 0.9% 1, 1000 000 ml @ 100 mls/hr IV . Q10H [facility] Rx#:[id number] Oral 690 1390 Output: Gastric Drainage 130 Stool 470 1350 50 Other: Voiding Method Toilet # Voids 1 1 2 - Constitutional General appearance: Present: cooperative, no acute distress - Gastrointestinal General gastrointestinal: Present: normal bowel sounds, soft. Absent: distended , tenderness - Labs CBC & Chem 7: 05/22/18 10:23 05/22/18 10:23 Labs: Abnormal Lab Results - Last 24 Hours (Table) 05/23/18 Range/Units 10:09 Total Bilirubin 1.8 H (0.2-1.3) mg/dL Unconjugated Bilirubin 1.8 H (0.0-1.1) mg/dL AST 87 H (14-36) U/L ALT 275 H (9-52) U/L Total Protein 6.2 L (6.3-8.2) g/dL Albumin 3.2 L (3.5-5.0) g/dL Assessment and Plan (1) Crohns disease Current Visit: Yes Status: Acute Code(s): K50.90 - CROHN'S DISEASE, UNSPECIFIED, WITHOUT COMPLICATIONS SNOMED Code(s): 68067315 (2) SBO (small bowel obstruction) Current Visit: Yes Status: Resolved Code(s): K56.609 - UNSP INTESTNL OBST, UNSP TO PARTIAL VERSUS COMPLETE OBST SNOMED Code(s): 058580852 (3) Elevated liver function tests Current Visit: Yes Status: Acute Code(s): R94.5 - ABNORMAL RESULTS OF LIVER FUNCTION STUDIES SNOMED Code(s): 473528286 Plan: Clinically the patient's improving. If appreciate GI input. We will advance her to a low residue diet. She likely has some thickening of the terminal ileum due to her Crohn's disease. Currently no signs of obstruction so no plans for surgery.
[2018-05-23 17:38] LABS: Iron Saturation 17.01 (12.00-45.00)
--- NOTE | 2018-05-23 18:07 | P.PN ---
Subjective Acute small bowel obstruction Patient is a 63-year-old female with a known history of Crohn's disease and colon resection with colostomy bag placement, lower extremity DVT and GI bleed currently not on any anticoagulation and the previous history of bowel obstruction about 12 years ago came to ER with complaints of abdominal pain and decreased ileostomy output for the past 2 days. Patient says that she felt like when she had bowel obstruction. Patient has been having worsening abdominal pain and has not had any ileostomy output. Patient came to ER for further evaluation. Abdominal x-ray is a history of bowel obstruction area patient was placed on NG tube and continued on IV fluids and pain management. Otherwise patient denied any complaints of chest pain or shortness of breath. No cough or sputum production. No fever no chills. No nausea vomiting or abdominal pain. No recent diarrhea. No recent illnesses. No recent travel. Patient did have GI bleed due to anticoagulation. Anticoagulation has been discontinued. Patient was placed on Humira. GI bleed has stopped about a year ago patient was discontinued on Humira currently. 05/21/2018 Patient says that abdominal pain is better. Otherwise continued on NG tube with short action. No fever no chills. General surgery is following. Continued on serial abdominal x-rays. Epigastric and oncology was consulted due to history of Crohn's disease and further management. No fever no chills. No nausea or vomiting. No headache or dizziness or lightheadedness. No chest pain or shortness of breath. 05/22/2018 Patient says that she feels better today. Did have minimal output into question back. NG tube has been capped and patient was started on clear liquid diet. General surgery is following. Patient did have abdominal x-ray in the a.m. today was suspicious for free air in the abdomen. CT of the abdominal pelvis was done which showed no evidence of free air. Gastroenterology was consulted for Crohn's disease management. Otherwise no fever no chills. Symptomatically much improved. Current medications reviewed 05/23/2018 Patient still improving, she starting liquid diet with no nausea vomiting, no abdominal pain. She does not have bowel movement yet. Surgery team are following the patient Discharge planning 24-48 hours Objective - Vital Signs Vital signs: Vital Signs Temp 97.4 F L 05/23/18 16:02 Pulse 50 L 05/23/18 16:02 Resp 16 05/23/18 16:02 BP 135/75 05/23/18 16:02 Pulse Ox 96 05/23/18 16:02 Intake & Output 05/22/18 05/23/18 05/23/18 18:59 06:59 18:59 Intake Total 690 2390 Output Total 600 1350 195 Balance 90 1040 -195 Intake: Intake, IV Titration 1000 Amount Sodium Chloride 0.9% 1, 1000 000 ml @ 100 mls/hr IV . Q10H [facility] Rx#:[id number] Oral 690 1390 Output: Gastric Drainage 130 145 Stool 470 1350 50 Other: Voiding Method Toilet # Voids 1 1 1 - Exam GENERAL: The patient is alert and oriented x3, not in any acute distress. Well developed, well nourished. HEENT: Pupils are round and equally reacting to light. EOMI. No scleral icterus. No conjunctival pallor. Normocephalic, atraumatic. No pharyngeal erythema. No thyromegaly. CARDIOVASCULAR: S1 and S2 present. No murmurs, rubs, or gallops. PULMONARY: Chest is clear to auscultation, no wheezing or crackles. ABDOMEN: Soft, nontender, nondistended, normoactive bowel sounds. No palpable organomegaly. MUSCULOSKELETAL: No joint swelling or deformity. EXTREMITIES: No cyanosis, clubbing, or pedal edema. NEUROLOGICAL: Gross neurological examination did not reveal any focal deficits. SKIN: No rashes. - Labs CBC & Chem 7: 05/22/18 10:23 05/22/18 10:23 Labs: Abnormal Lab Results - Last 24 Hours (Table) 05/23/18 Range/Units 10:09 Total Bilirubin 1.8 H (0.2-1.3) mg/dL Unconjugated Bilirubin 1.8 H (0.0-1.1) mg/dL AST 87 H (14-36) U/L ALT 275 H (9-52) U/L Total Protein 6.2 L (6.3-8.2) g/dL Albumin 3.2 L (3.5-5.0) g/dL Assessment and Plan Plan: Abdominal pain secondary to acute small bowel obstruction. Improving History of bowel obstruction about 12 years ago status post lysis of adhesions Crohn's disease with history of colectomy about 40 years ago History of GI bleed History of lower extremity DVT DVT prophylaxis. Heparin was offered but patient refuses to take heparin subcu. Plan: Patient will be continued on IV hydration. Pain management and NG tube was placed. Continue with serial abdominal exam and x-rays. Patient is clinically improving with minimal output in the colostomy bag. Patient was started on clear liquid diet. Gen. surgery is following. Gastroenterology was consulted. We will continue to follow and further recommendations based on the clinical course. Prognosis is guarded.
[2018-05-23 18:16] LABS: Hepatitis A Antibody IgM Non-Reactive (Non-Reactive); Hepatitis B Core IgM Non-Reactive (Non-Reactive)
[2018-05-24] MEDS: LEVOTHYROXINE 100 MCG TAB PO SCH (06:24)
[2018-05-24 08:41] VITALS: TEMP 98.2
[2018-05-24] MEDS: PANTOPRAZOLE 40 MG/10 ML VIAL IV SCH (09:07)
--- NOTE | 2018-05-24 10:42 | P.PN ---
Subjective Progress Note Date: 05/24/18 The patient seen on rounds. She's tolerating a diet. Little bit of abdominal cramps. Her ostomy has been working. Objective - Vital Signs Vital signs: Vital Signs Temp 98.2 F 05/24/18 07:33 Pulse 52 L 05/24/18 09:10 Resp 20 05/24/18 09:10 BP 139/86 05/24/18 09:10 Pulse Ox 94 L 05/24/18 07:33 Intake & Output 05/23/18 05/24/18 05/24/18 18:59 06:59 18:59 Output Total 195 50 Balance -195 -50 Weight 63.049 kg Output: Gastric Drainage 145 Stool 50 50 Other: Voiding Method Toilet # Voids 1 1 1 - Constitutional General appearance: Present: cooperative, no acute distress - Gastrointestinal General gastrointestinal: Present: normal bowel sounds, soft. Absent: distended (No tympany to percussion ), tenderness - Labs CBC & Chem 7: 05/22/18 10:23 05/22/18 10:23 Assessment and Plan (1) Crohns disease Current Visit: Yes Status: Acute Code(s): K50.90 - CROHN'S DISEASE, UNSPECIFIED, WITHOUT COMPLICATIONS SNOMED Code(s): 60026775 (2) SBO (small bowel obstruction) Current Visit: Yes Status: Resolved Code(s): K56.609 - UNSP INTESTNL OBST, UNSP TO PARTIAL VERSUS COMPLETE OBST SNOMED Code(s): 175813517 (3) Elevated liver function tests Current Visit: Yes Status: Acute Code(s): R94.5 - ABNORMAL RESULTS OF LIVER FUNCTION STUDIES SNOMED Code(s): 207204052 Plan: Patient is nonsurgical. Recommend low fiber diet. Based on CT findings she probably has a bit of chronic luminal narrowing in the distal colon. We'll let her follow up with GI. I'll follow up on a when necessary basis.
[2018-05-24 12:04] LABS: Ceruloplasmin 28.9 mg/dL (20.0-60.0)
[2018-05-24 13:57] VITALS: BP 111/69; PULSE 61; RESP 16
[2018-05-25 11:55] LABS: Liver/Kidney Microsome Antibod 1.1 UNITS (<=20)
== END 2018-05-24 16:16 | disposition home or self-care (01) | DRG 387 ==
LOC: EC 02:48 → 6PED 06:00
PROVIDERS: ADMIT Internal Medicine; ATTEND Internal Medicine
DX: K50.011 Crohn's disease of small intestine with rectal bleeding (principal); E89.0 Postprocedural hypothyroidism; Z79.890 Hormone replacement therapy; Z83.3 Family history of diabetes mellitus; Z86.718 Personal history of other venous thrombosis and embolism; Z87.891 Personal history of nicotine dependence; Z90.49 Acquired absence of other specified parts of digestive tract; Z90.710 Acquired absence of both cervix and uterus; Z93.2 Ileostomy status; R94.5 Abnormal results of liver function studies; Z88.2 Allergy status to sulfonamides
CPT/HCPCS: 36415; 71046; 74018; 74019; 74177; 76700; 80053; 80074; 80076; 81001; 82103; 82150; 82390; 82728; 83516; 83540; 83550; 83605; 83690; 85025; 85027; 85610; 85652; 85730; 86038; 86140; 86376; 87086; 96361; 96374; 96375; 99285

== ENCOUNTER 2018-09-03 23:46 | Inpatient (IN) | payer OTHER ==
[2018-09-04] MEDS ORDERED: SODIUM CHLORIDE 0.9% 500 ML 500 ML IV STA (00:56)
[2018-09-04] MEDS ORDERED: ONDANSETRON 4 MG/2 ML VIAL IVP STA (00:56)
[2018-09-04 01:24] LABS: Basophils # (A) 0.1 k/uL (0-0.2); Basophils % (A) 1 %; Eosinophils # (A) 0.1 k/uL (0-0.7); Eosinophils % (A) 2 %; HCT 36.7 % (34.0-46.0); HGB 12.7 gm/dL (11.4-16.0); Lymphocytes # (A) 1.5 k/uL (1.0-4.8); Lymphocytes % (A) 23 %; MCH 32.4 pg (25.0-35.0); MCHC 34.5 g/dL (31.0-37.0); MCV 93.8 fL (80.0-100.0); Mean Platelet Volume 7.4; Monocytes # (A) 0.4 k/uL (0-1.0); Monocytes % (A) 6 %; Neutrophils # (A) 4.5 k/uL (1.3-7.7); Neutrophils % (A) 66 %; Platelet Count 153 k/uL (150-450); RBC 3.92 m/uL (3.80-5.40); RDW 13.8 % (11.5-15.5); WBC 6.7 k/uL (3.8-10.6)
[2018-09-04 01:33] LABS: Albumin 3.9 g/dL (3.5-5.0); Calcium 9.8 mg/dL (8.4-10.2); Potassium 3.9 mmol/L (3.5-5.1); Total Bilirubin 1.8 mg/dL (0.2-1.3); Total Protein 6.8 g/dL (6.3-8.2)
[2018-09-04 01:39] LABS: Appearance,Urine Clear (Clear); Bilirubin,Urine Negative (Negative); Blood,Urine Negative (Negative); Color,Urine Yellow; Glucose,Urine (UA) Negative (Negative); Ketones,Urine Negative (Negative); Leukocyte Esterase,Urine Small (Negative); Mucus,Urine Rare /hpf; Nitrite,Urine Negative (Negative); Protein,Urine Trace (Negative); RBC,Urine 2 /hpf (0-5); Specific Gravity,Urine 1.029 (1.001-1.035); Squamous Epithelial Cell,Urine <1 /hpf (0-4); Urobilinogen,Urine <2.0 mg/dL (<2.0); WBC,Urine 3 /hpf (0-5)
--- NOTE | 2018-09-04 01:43 | CT ---
EXAM: CT Abdomen and Pelvis With Intravenous Contrast CLINICAL HISTORY: Pain TECHNIQUE: Axial computed tomography images of the abdomen and pelvis with intravenous contrast. CTDI is 0.085, 0.08, 7.6, 7.3 mGy and DLP is 649.8 mGy-cm. This CT exam was performed using one or more of the following dose reduction techniques: automated exposure control, adjustment of the mA and/or kV according to patient size, and/or use of iterative reconstruction technique. COMPARISON: CT abdomen and pelvis dated 05/22/2018 FINDINGS: Lung bases: Dependent atelectasis. ABDOMEN: Liver: Unremarkable. Gallbladder and bile ducts: Gallbladder is surgically absent. Pancreas: Unremarkable. Spleen: Unremarkable. Adrenals: Unremarkable. Kidneys and ureters: Cysts within left kidney. Otherwise, kidneys and ureters are unremarkable. Stomach and bowel: Status post colectomy with a Keita's pouch and the right lower quadrant ileostomy. Dilated distal loops of small bowel seen extending to the stoma. A low-grade bowel obstruction is raised which may be secondary to edema or stricture at the stoma. There is a small peristomal hernia containing dilated small bowel. PELVIS: Appendix: See above. Bladder: Urinary bladder is decompressed. Reproductive: Unremarkable as visualized. ABDOMEN and PELVIS: Intraperitoneal space: Unremarkable. Bones/joints: No acute fracture. No dislocation. Soft tissues: See above. Vasculature: Unremarkable. No abdominal aortic aneurysm. Lymph nodes: Unremarkable. IMPRESSION: 1. Status post colectomy with a Keita's pouch and the right lower quadrant ileostomy. 2. Dilated distal loops of small bowel seen extending to the stoma. A low-grade bowel obstruction is raised which may be secondary to edema or stricture at the stoma. There is a small peristomal hernia containing dilated small bowel.
[2018-09-04] MEDS ORDERED: HYDROmorphone 1 MG/ML 1 ML SYRINGE IVP STA (02:20)
--- NOTE | 2018-09-04 02:29 | ED ---
Abdominal Pain HPI - General Source: patient Mode of arrival: ambulatory Limitations: no limitations <Alexandra Cutler - Last Filed: 09/04/18 03:53> <Rosaura Guy - Last Filed: 09/04/18 07:26> - General Chief Complaint: Abdominal Pain Stated Complaint: poss bowel blockage Time Seen by Provider: 09/04/18 00:21 - History of Present Illness Initial Comments: 63-year-old female patient presents to the emergency department today for evaluation of abdominal pain and decreased output from her ileostomy. Patient states she's had the ileostomy for the last 40 years. States she did have a very small amount of stool output when she arrived here but nothing else since 2 PM. She is reporting pain around her ileostomy site. Is reporting hernia around the site. Patient states she has been nauseated but has not vomited. Patient does have history of bowel obstruction in April. Patient states symptoms feel similar to that. She denies any fever or chills. Denies any chest pain or shortness of breath. Denies any hematuria, dysuria, urinary frequency, urinary urgency. Patient denies any recent rash, shortness breath, chest pain, back pain, numbness, tingling, dizziness, weakness, hematuria, dysuria, urinary urgency, urinary frequency, headache, visual changes, or any other complaints. (Alexandra Cutler) - Related Data Home Medications Medication Instructions Recorded Confirmed Levothyroxine Sodium [Synthroid] 100 mcg PO MOTUWETHFRSA 06/27/15 05/20/18 Mesalamine [Pentasa] 750 mg PO BID@0800,2100 06/27/15 05/20/18 Adalimumab [Humira(Cf) Pen] 40 mg SQ Q14D 05/20/18 05/20/18 Cholecalciferol [Vitamin D3] 1,000 unit PO DAILY 05/20/18 05/20/18 Ferrous Sulfate [Iron (65 MG 325 mg PO DAILY 05/20/18 05/20/18 Elemental)] Magnesium 200 mg PO DAILY 05/20/18 05/20/18 Mesalamine [Pentasa] 500 mg PO DAILY@1200 05/20/18 05/20/18 Previous Rx's Medication Instructions Recorded traMADol HCL [Ultram] 50 mg PO Q6HR PRN 2 Days #8 tab 05/24/18 Allergies Allergy/AdvReac Type Severity Reaction Status Date / Time Sulfa (Sulfonamide Allergy Unknown Verified 09/04/18 00:02 Antibiotics) Review of Systems ROS Other: All systems not noted in ROS Statement are negative. <Alexandra Cutler - Last Filed: 09/04/18 03:53> ROS Other: All systems not noted in ROS Statement are negative. <Rosaura Guy - Last Filed: 09/04/18 07:26> ROS Statement: Those systems with pertinent positive or pertinent negative responses have been documented in the HPI. Past Medical History Past Medical History: Thyroid Disorder Additional Past Medical History / Comment(s): crohns History of Any Multi-Drug Resistant Organisms: None Reported Past Surgical History: Bowel Resection, Cholecystectomy, Hysterectomy Additional Past Surgical History / Comment(s): ileostomy, thyroidectomy Past Anesthesia/Blood Transfusion Reactions: No Reported Reaction Past Psychological History: No Psychological Hx Reported Smoking Status: Former smoker Past Alcohol Use History: Rare Past Drug Use History: None Reported - Past Family History Daughter(s) Family Medical History: Diabetes Mellitus <Alexandra Cutler - Last Filed: 09/04/18 03:53> General Exam Limitations: no limitations General appearance: alert, in no apparent distress, other (This is a well- developed, well-nourished adult female patient in no acute distress. Vital signs upon presentation are temperature 97.5F, pulse 72, respirations 18, blood pressure 155/88, pulse ox 98% on room air.) Eye exam: Present: normal appearance, PERRL, EOMI. Absent: scleral icterus, conjunctival injection, periorbital swelling ENT exam: Present: normal exam, normal oropharynx, mucous membranes moist Respiratory exam: Present: normal lung sounds bilaterally. Absent: respiratory distress, wheezes, rales, rhonchi, stridor Cardiovascular Exam: Present: regular rate, normal rhythm, normal heart sounds. Absent: systolic murmur, diastolic murmur, rubs, gallop, clicks GI/Abdominal exam: Present: soft, tenderness (Upper abdominal), normal bowel sounds, other (Right upper quadrant ileostomy present, obvious hernia present. Patient does have generalized upper abdominal tenderness.). Absent: distended, guarding, rebound, rigid Neurological exam: Present: alert, oriented X3, CN II-XII intact Psychiatric exam: Present: normal affect, normal mood Skin exam: Present: warm, dry, intact, normal color. Absent: rash <Alexandra Cutler - Last Filed: 09/04/18 03:53> Course Vital Signs 09/04/18 09/04/18 09/04/18 00:00 02:00 03:00 Temperature 97.5 F L Pulse Rate 72 72 84 Respiratory 18 18 18 Rate Blood Pressure 155/88 137/80 135/85 O2 Sat by Pulse 98 97 97 Oximetry 09/04/18 04:00 Temperature 97.8 F Pulse Rate 65 Respiratory 18 Rate Blood Pressure 115/72 O2 Sat by Pulse 97 Oximetry Medical Decision Making - Lab Data Result diagrams: 09/04/18 00:19 09/04/18 00:19 - Radiology Data Radiology results: report reviewed, image reviewed <Alexandra Cutler - Last Filed: 09/04/18 03:53> - Lab Data Result diagrams: 09/04/18 00:19 09/04/18 00:19 <Rosaura Guy - Last Filed: 09/04/18 07:26> - Medical Decision Making 63-year-old female patient presents to the emergency department today for evaluation of abdominal pain, decreased output from her stoma and nausea. Physical examination did reveal tenderness surrounding her ileostomy site. Labs reviewed and are unremarkable. CT abdomen and pelvis did show evidence for low-grade small bowel obstruction and a peristomal hernia. Did discuss the case with Dr. Kennedy from [facility] who accepts admission. Dr. Saul will be consulted. Patient will remain NPO. Patient is not vomiting, we will withhold NG tube at this time. Did discuss findings, results, plan with the patient, she is agreeable. (Alexandra Cutler) I was available for consultation in the emergency department. The history and physical exam were done by the midlevel provider. I was consulted for this patient's care. I reviewed the case with the midlevel provider and based on their presentation of the patient, I agree with the assessment, medical decision making and plan of care as documented. (Rosaura Guy) - Lab Data Lab Results 09/04/18 09/04/18 09/04/18 Range/Units :19 00:19 00:19 WBC 6.7 (3.8-10.6) k/uL RBC 3.92 (3.80-5.40) m/uL Hgb 12.7 (11.4-16.0) gm/dL Hct 36.7 (34.0-46.0) % MCV 93.8 (80.0-100.0) fL MCH 32.4 (25.0-35.0) pg MCHC 34.5 (31.0-37.0) g/dL RDW 13.8 (11.5-15.5) % Plt Count 153 (150-450) k/uL Neutrophils % 66 % Lymphocytes % 23 % Monocytes % 6 % Eosinophils % 2 % Basophils % 1 % Neutrophils # 4.5 (1.3-7.7) k/uL Lymphocytes # 1.5 (1.0-4.8) k/uL Monocytes # 0.4 (0-1.0) k/uL Eosinophils # 0.1 (0-0.7) k/uL Basophils # 0.1 (0-0.2) k/uL Sodium 137 (137-145) mmol/L Potassium 3.9 (3.5-5.1) mmol/L Chloride 104 (98-107) mmol/L Carbon Dioxide 30 (22-30) mmol/L Anion Gap 3 mmol/L BUN 26 H (7-17) mg/dL Creatinine 0.97 (0.52-1.04) mg/dL Est GFR (CKD-EPI)AfAm 73 (>60 ml/min/1.73 sqM) Est GFR (CKD-EPI)NonAf 63 (>60 ml/min/1.73 sqM) Glucose 90 (74-99) mg/dL Plasma Lactic Acid Jose 1.0 (0.7-2.0) mmol/L Calcium 9.8 (8.4-10.2) mg/dL Total Bilirubin 1.8 H (0.2-1.3) mg/dL AST 23 (14-36) U/L ALT 25 (9-52) U/L Alkaline Phosphatase 54 (38-126) U/L Total Protein 6.8 (6.3-8.2) g/dL Albumin 3.9 (3.5-5.0) g/dL Amylase 63 (30-110) U/L Lipase 65 (23-300) U/L Urine Color Urine Appearance (Clear) Urine pH (5.0-8.0) Ur Specific [place] (1.001-1.035) Urine Protein (Negative) Urine Glucose (UA) (Negative) Urine Ketones (Negative) Urine Blood (Negative) Urine Nitrite (Negative) Urine Bilirubin (Negative) Urine Urobilinogen (<2.0) mg/dL Ur Leukocyte Esterase (Negative) Urine RBC (0-5) /hpf Urine WBC (0-5) /hpf Ur Squamous Epith Cells (0-4) /hpf Urine Mucus (None) /hpf 09/04/18 Range/Units 00:19 WBC (3.8-10.6) k/uL RBC (3.80-5.40) m/uL Hgb (11.4-16.0) gm/dL Hct (34.0-46.0) % MCV (80.0-100.0) fL MCH (25.0-35.0) pg MCHC (31.0-37.0) g/dL RDW (11.5-15.5) % Plt Count (150-450) k/uL Neutrophils % % Lymphocytes % % Monocytes % % Eosinophils % % Basophils % % Neutrophils # (1.3-7.7) k/uL Lymphocytes # (1.0-4.8) k/uL Monocytes # (0-1.0) k/uL Eosinophils # (0-0.7) k/uL Basophils # (0-0.2) k/uL Sodium (137-145) mmol/L Potassium (3.5-5.1) mmol/L Chloride (98-107) mmol/L Carbon Dioxide (22-30) mmol/L Anion Gap mmol/L BUN (7-17) mg/dL Creatinine (0.52-1.04) mg/dL Est GFR (CKD-EPI)AfAm (>60 ml/min/1.73 sqM) Est GFR (CKD-EPI)NonAf (>60 ml/min/1.73 sqM) Glucose (74-99) mg/dL Plasma Lactic Acid Jose (0.7-2.0) mmol/L Calcium (8.4-10.2) mg/dL Total Bilirubin (0.2-1.3) mg/dL AST (14-36) U/L ALT (9-52) U/L Alkaline Phosphatase (38-126) U/L Total Protein (6.3-8.2) g/dL Albumin (3.5-5.0) g/dL Amylase (30-110) U/L Lipase (23-300) U/L Urine Color Yellow Urine Appearance Clear (Clear) Urine pH 5.0 (5.0-8.0) Ur Specific [place] 1.029 (1.001-1.035) Urine Protein Trace H (Negative) Urine Glucose (UA) Negative (Negative) Urine Ketones Negative (Negative) Urine Blood Negative (Negative) Urine Nitrite Negative (Negative) Urine Bilirubin Negative (Negative) Urine Urobilinogen <2.0 (<2.0) mg/dL Ur Leukocyte Esterase Small H (Negative) Urine RBC 2 (0-5) /hpf Urine WBC 3 (0-5) /hpf Ur Squamous Epith Cells <1 (0-4) /hpf Urine Mucus Rare H (None) /hpf - Radiology Data CT abdomen and pelvis with contrast was obtained. Report was reviewed in its entirety. Impression by Dr. Jones shows status post colectomy with Miki's pouch and right lower quadrant ileostomy. Dilated distal loops of small bowel seen extending to the stoma. I low-grade bowel obstruction is raised which may be secondary to edema or stricture at the stoma. There is small peristomal hernia containing dilated small bowel. (Alexandra Cutler) Disposition Decision to Admit Reason: Admit from EC Decision Date: 09/04/18 Decision Time: 03:53 <Alexandra Cutler - Last Filed: 09/04/18 03:53> <Rosaura Guy - Last Filed: 09/04/18 07:26> Clinical Impression: Small bowel obstruction Disposition: ADMITTED IP TO THIS [facility] Condition: Serious
[2018-09-04] MEDS ORDERED: NALOXONE 0.4 MG/ML 1 ML VIAL IV PRN (03:50)
[2018-09-04] MEDS ORDERED: HYDROmorphone 0.5 MG/0.5 ML SYRINGE IVP PRN (03:50)
[2018-09-04] MEDS: SODIUM CHLORIDE 0.9% 1,000 ML IV SCH ×2 (03:55→13:08)
[2018-09-04] MEDS ORDERED: HYDROmorphone 1 MG/ML 1 ML SYRINGE IVP PRN (04:02)
[2018-09-04 05:30] VITALS: BMI 25.9
--- NOTE | 2018-09-04 07:33 | P.HPIM ---
History of Present Illness H&P Date: 09/04/18 The patient is a 63 yo F with a PMH of crohn's disease w/ subsequent colectomy and ileostomy creation 40 years ago and multiple subsequent abdominal surgeries along wih multiple bouts of SBO presented to the ED for abdominal pain and decreased ileostomy output. The patient reports that she began having the pain earlier on the day of presentation at 2 pm, was epigastric, constant, 5-7/10, cramping in nature, w/ no radiation or alleviating/exacerbating factors. She reported some associated nausea though denied vomiting. Further denied fever, chills, cough, chest pain, or SOB. Denied dysuria, hematuria, or increased urinary frequency. The patient underwent an extensive evaluation in the ED w/ abdomen/pelvis CT showing a low grade obstruction proximal to the stoma w/ a peristomal hernia containing dilated small bowel. WBC was 6.7, Hgb 12.7, UA neg for UTI, and total bilirubin elevated at 1.8. The patient was started on IV fluids, made NPO, and was admitted to the medicine service for further management. Review of Systems Pertinent positives and negatives as discussed in HPI, a complete review of systems was performed and all other systems are negative. Past Medical History Past Medical History: Thyroid Disorder Additional Past Medical History / Comment(s): crohns History of Any Multi-Drug Resistant Organisms: None Reported Past Surgical History: Bowel Resection, Cholecystectomy, Hysterectomy Additional Past Surgical History / Comment(s): ileostomy, thyroidectomy Past Anesthesia/Blood Transfusion Reactions: No Reported Reaction Past Psychological History: No Psychological Hx Reported Smoking Status: Never smoker Past Alcohol Use History: Rare Past Drug Use History: None Reported - Past Family History Daughter(s) Family Medical History: Diabetes Mellitus Medications and Allergies Home Medications Medication Instructions Recorded Confirmed Type Levothyroxine Sodium [Synthroid] 100 mcg PO MOTUWETHFRSA 06/27/15 05/20/18 History Mesalamine [Pentasa] 750 mg PO BID@0800,2100 06/27/15 05/20/18 History Adalimumab [Humira(Cf) Pen] 40 mg SQ Q14D 05/20/18 05/20/18 History Cholecalciferol [Vitamin D3] 1,000 unit PO DAILY 05/20/18 05/20/18 History Ferrous Sulfate [Iron (65 MG 325 mg PO DAILY 05/20/18 05/20/18 History Elemental)] Magnesium 200 mg PO DAILY 05/20/18 05/20/18 History Mesalamine [Pentasa] 500 mg PO DAILY@1200 05/20/18 05/20/18 History traMADol HCL [Ultram] 50 mg PO Q6HR PRN 2 Days #8 tab 05/24/18 Rx Allergies Allergy/AdvReac Type Severity Reaction Status Date / Time Sulfa (Sulfonamide Allergy Unknown Verified 09/04/18 00:02 Antibiotics) Physical Exam Vitals: Vital Signs Temp Pulse Pulse Resp BP BP Pulse Ox 09/04/18 05:21 98.1 F 72 18 136/76 98 09/04/18 04:00 97.8 F 65 18 115/72 97 09/04/18 03:00 84 18 135/85 97 09/04/18 02:00 72 18 137/80 97 09/04/18 00:00 97.5 F L 72 18 155/88 98 Intake and Output 09/03/18 09/04/18 09/04/18 22:59 06:59 14:59 Other: # Voids 1 Weight 62.414 kg General: non toxic, no distress, appears at stated age, normal weight Derm: no unusual rashes/lesions no unusual ecchymoses, warm, dry Head: atraumatic, normocephalic, symmetric Eyes: EOMI, no lid lag, anicteric sclera, pupils equal round reactive to light ENT: Nose and ears atraumatic, no thrush, no pharyngeal erythema Neck: No thyromegaly, no cervical lymphadenopathy, trachea midline, supple Mouth: no lip lesion, mucus membranes moist Cardiovascular: S1S2 reg, no murmur, positive posterior tibial pulse bilateral, no edema, capillary refill less than 2 seconds Lungs: CTA bilateral, no rhonchi, no rales , no accessory muscle use Abdominal: soft, epigastric and right lower quadrant tenderness to palpation, ileostomy bag translucent, with stool, no surrounding skin abnormalities noted, no guarding, no appreciable organomegaly Ext: no gross muscle atrophy, muscle strength 5 out of 5 in all 4 extremities grossly, no contractures, Neuro: CN II-XI grossly intact, light touch intact all 4 extremities, finger to nose within normal limits, Psych: Alert, oriented, appropriate affect Results CBC & Chem 7: 09/04/18 00:19 09/04/18 00:19 Labs: Abnormal Lab Results - Last 24 Hours (Table) 09/04/18 09/04/18 Range/Units 00: 00:19 BUN 26 H (7-17) mg/dL Total Bilirubin 1.8 H (0.2-1.3) mg/dL Urine Protein Trace H (Negative) Ur Leukocyte Esterase Small H (Negative) Urine Mucus Rare H (None) /hpf Thrombosis Risk Factor Assmnt - Choose All That Apply Any of the Below Risk Factors Present?: Yes Each Factor Represents 1 point: Hx of IBD, Obesity (BMI >25) Other Risk Factors: Yes Each Risk Factor Represents 2 Points: Age 61-74 years Other congenital or acquired thrombophilia - If yes, enter type in comment: No Thrombosis Risk Factor Assessment Total Risk Factor Score: 4 Thrombosis Risk Factor Assessment Level: Moderate Risk Assessment and Plan Plan: Partial Small bowel obstruction -Bowel rest w/ NPO and NGT suction -Surgical consult -Pain control -Zofran prn for nausea -IVFs Hypothyroid -Resume home synthroid dose DVT//GI proph -Lovenox -Protonix The patient is admitted with an anticipated greater than 2 midnight stay for evaluation of partial SBO. CODE STATUS:Full Code Discussed with: Patient Anticipated discharge date: 09/06/[address]: Home A total of 35 minutes was spent on the care of this complex patient more than 50% of the time was spent in counseling and care coordination.
[2018-09-04] MEDS: ENOXAPARIN 40 MG/0.4 ML SYRINGE SQ SCH (09:29)
[2018-09-04] MEDS: ONDANSETRON 4 MG/2 ML VIAL IVP PRN ×2 (09:37→16:37)
--- NOTE | 2018-09-04 12:58 | P.GSCN ---
History of Present Illness Consult date: 09/04/18 Reason for Consult: Possible bowel obstruction History of present illness: The patient is a 63-year-old female with a long-standing ileostomy due to Crohn's. She noticed yesterday afternoon her ostomy output decreased. Later in the day she felt a little crampy. She thought she could be "constipated ". She drinks some milk with no relief. She went to bed and started having some discomfort and was concerned she could be developing a bowel obstruction so she came to the emergency department. SHe was evaluated and admitted. Shortly af ter she arrived in began receiving IV fluids, her ostomy began working well. She denies any pain now she is hungry now. She does have a small parastomal hernia. It may have been a little bit more protruding. Last night. Review of Systems All systems: negative Past Medical History Past Medical History: Thyroid Disorder Additional Past Medical History / Comment(s): crohns History of Any Multi-Drug Resistant Organisms: None Reported Past Surgical History: Bowel Resection, Cholecystectomy, Hysterectomy Additional Past Surgical History / Comment(s): ileostomy, thyroidectomy Past Anesthesia/Blood Transfusion Reactions: No Reported Reaction Past Psychological History: No Psychological Hx Reported Smoking Status: Never smoker Past Alcohol Use History: Rare Past Drug Use History: None Reported - Past Family History Daughter(s) Family Medical History: Diabetes Mellitus Medications and Allergies Home Medications Medication Instructions Recorded Confirmed Type Levothyroxine Sodium [Synthroid] 100 mcg PO MOTUWETHFRSA 06/27/15 09/04/18 History Adalimumab [Humira(Cf) Pen] 20 mg SQ Q14D 05/20/18 09/04/18 History Cholecalciferol [Vitamin D3] 2,000 unit PO DAILY 05/20/18 09/04/18 History Ferrous Sulfate [Iron (65 MG 325 mg PO DAILY 05/20/18 09/04/18 History Elemental)] Magnesium 200 mg PO DAILY 05/20/18 09/04/18 History Budesonide [Budesonide EC] 3 mg PO DAILY 09/04/18 09/04/18 History Mesalamine [Pentasa] 1,000 mg PO AC-LUNCH 09/04/18 09/04/18 History Mesalamine [Pentasa] 1,500 mg PO BID 09/04/18 09/04/18 History Allergies Allergy/AdvReac Type Severity Reaction Status Date / Time Sulfa (Sulfonamide Allergy Unknown Verified 09/04/18 08:20 Antibiotics) Surgical - Exam Osteopathic Statement: *. No significant issues noted on an osteopathic structural exam other than those noted in the History and Physical/Consult. Vital Signs Temp Pulse Resp BP Pulse Ox 97.5 F L 72 18 155/88 98 09/04/18 00:00 09/04/18 00:00 09/04/18 00:00 09/04/18 00:00 09/04/18 00:00 - General well developed, well nourished, no distress - Eyes normal ocular movement - Neck trachea midline - Respiratory normal expansion, normal respiratory effort - Cardiovascular Rhythm: regular - Abdomen Right lower quadrant ostomy without any significant tenderness, guarding, rebound. No significant peristomal hernia is palpated. Abdomen: soft, non tender, bowel sounds, surgical scars Results - Labs 09/04/18 00:19 09/04/18 00:19 Abnormal Lab Results - Last 24 Hours (Table) 09/04/18 09/04/18 Range/Units 00:19 00:19 BUN 26 H (7-17) mg/dL Total Bilirubin 1.8 H (0.2-1.3) mg/dL Urine Protein Trace H (Negative) Ur Leukocyte Esterase Small H (Negative) Urine Mucus Rare H (None) /hpf Diabetes panel 09/04/18 Range/Units 00:19 Sodium 137 (137-145) mmol/L Potassium 3.9 (3.5-5.1) mmol/L Chloride 104 (98-107) mmol/L Carbon Dioxide 30 (22-30) mmol/L BUN 26 H (7-17) mg/dL Creatinine 0.97 (0.52-1.04) mg/dL Glucose 90 (74-99) mg/dL Calcium 9.8 (8.4-10.2) mg/dL AST 23 (14-36) U/L ALT 25 (9-52) U/L Alkaline Phosphatase 54 (38-126) U/L Total Protein 6.8 (6.3-8.2) g/dL Albumin 3.9 (3.5-5.0) g/dL Calcium panel 09/04/18 Range/Units 00:19 Calcium 9.8 (8.4-10.2) mg/dL Albumin 3.9 (3.5-5.0) g/dL Pituitary panel 09/04/18 Range/Units 00:19 Sodium 137 (137-145) mmol/L Potassium 3.9 (3.5-5.1) mmol/L Chloride 104 (98-107) mmol/L Carbon Dioxide 30 (22-30) mmol/L BUN 26 H (7-17) mg/dL Creatinine 0.97 (0.52-1.04) mg/dL Glucose 90 (74-99) mg/dL Calcium 9.8 (8.4-10.2) mg/dL Adrenal panel 09/04/18 Range/Units 00:19 Sodium 137 (137-145) mmol/L Potassium 3.9 (3.5-5.1) mmol/L Chloride 104 (98-107) mmol/L Carbon Dioxide 30 (22-30) mmol/L BUN 26 H (7-17) mg/dL Creatinine 0.97 (0.52-1.04) mg/dL Glucose 90 (74-99) mg/dL Calcium 9.8 (8.4-10.2) mg/dL Total Bilirubin 1.8 H (0.2-1.3) mg/dL AST 23 (14-36) U/L ALT 25 (9-52) U/L Alkaline Phosphatase 54 (38-126) U/L Total Protein 6.8 (6.3-8.2) g/dL Albumin 3.9 (3.5-5.0) g/dL - Imaging CT scan - abdomen: report reviewed Assessment and Plan (1) Small bowel obstruction Current Visit: Yes Status: Acute Code(s): K56.609 - UNSP INTESTNL OBST, UNSP TO PARTIAL VERSUS COMPLETE OBST SNOMED Code(s): 000319807 (2) Crohns disease Current Visit: No Status: Acute Code(s): K50.90 - CROHN'S DISEASE, UNSPECIFIED, WITHOUT COMPLICATIONS SNOMED Code(s): 52033274 Plan: Her symptoms have resolved. We'll start her on a diet. Advance as tolerated. No plans for surgery at this point.
[2018-09-04] MEDS: ACETAMINOPHEN TAB 325 MG TAB PO PRN ×2 (13:57→21:14)
[2018-09-04] MEDS ORDERED: ONDANSETRON 4 MG/2 ML VIAL IVP PRN (17:06)
[2018-09-05] MEDS: SODIUM CHLORIDE 0.9% 1,000 ML IV SCH (06:20)
[2018-09-05 06:57] LABS: Albumin 2.7 g/dL (3.5-5.0); Calcium 8.4 mg/dL (8.4-10.2); Potassium 4.1 mmol/L (3.5-5.1); Total Bilirubin 2.1 mg/dL (0.2-1.3); Total Protein 5.3 g/dL (6.3-8.2)
[2018-09-05 07:01] LABS: Basophils % (A) 1 %; Eosinophils # (A) 0.1 k/uL (0-0.7); Eosinophils % (A) 3 %; HCT 30.4 % (34.0-46.0); HGB 10.2 gm/dL (11.4-16.0); Lymphocytes # (A) 1.1 k/uL (1.0-4.8); Lymphocytes % (A) 35 %; MCH 32.2 pg (25.0-35.0); MCHC 33.6 g/dL (31.0-37.0); MCV 95.6 fL (80.0-100.0); Mean Platelet Volume 7.9; Monocytes # (A) 0.2 k/uL (0-1.0); Monocytes % (A) 7 %; Neutrophils # (A) 1.6 k/uL (1.3-7.7); Neutrophils % (A) 50 %; RBC 3.18 m/uL (3.80-5.40); RDW 13.4 % (11.5-15.5); WBC 3.1 k/uL (3.8-10.6)
[2018-09-05 07:09] LABS: Platelet Count 92 k/uL (150-450)
[2018-09-05] MEDS: ENOXAPARIN 40 MG/0.4 ML SYRINGE SQ SCH (08:10)
--- NOTE | 2018-09-05 08:48 | XR ---
EXAMINATION TYPE: XR abdomen 2V DATE OF EXAM: 09/05/2018 COMPARISON: 09/04/2018 HISTORY: Bowel obstruction TECHNIQUE: One view abdominal series FINDINGS: The osseous structures are intact. The bowel gas pattern is nonspecific. Postsurgical changes are no dhruv. Hypertrophic change spine subsegmental consolidation both lung bases. Suggestion of an ostomy in the right lower quadrant. NG tube is been removed. Arthropathy of the hips. Nonspecific calcificatio ns in the pelvic basin. IMPRESSION: 1. Nonspecific abdomen. 2. Bilateral basilar consolidation and small effusion.
--- NOTE | 2018-09-05 11:26 | P.PN ---
Subjective Progress Note Date: 09/05/18 The patient was seen on rounds. She was started on a diet yesterday but began getting nauseated. She was moved back to clear liquids. She now thinks the nausea may have been due to the pain medication. She stopped using pain medication and has had no further nausea. The ostomy is working well. She is hungry. She feels good. She would likmore to eat and to be discharged home Objective - Vital Signs Vital signs: Vital Signs Temp 97.9 F 09/05/18 08:00 Pulse 52 L 09/05/18 08:00 Resp 20 09/05/18 08:00 BP 123/72 09/05/18 08:00 Pulse Ox 100 09/05/18 08:00 Intake & Output 09/04/18 09/05/18 09/05/18 18:59 06:59 18:59 Intake Total 60 1000 Balance 60 1000 Intake: Intake, IV Titration 1000 Amount Sodium Chloride 0.9% 1, 1000 000 ml @ 75 mls/hr IV . [id number] [facility] Rx#:[id number] Oral 60 Other: Voiding Method Toilet Toilet # Voids 1 1 # Bowel Movements 1 1 - Constitutional General appearance: Present: cooperative, no acute distress - Gastrointestinal General gastrointestinal: Present: normal bowel sounds, soft. Absent: distended, tenderness - Labs CBC & Chem 7: 09/05/18 06:20 09/05/18 06:20 Labs: Abnormal Lab Results - Last 24 Hours (Table) 09/05/18 09/05/18 Range/Units 06:20 06:20 WBC 3.1 L (3.8-10.6) k/uL RBC 3.18 L (3.80-5.40) m/uL Hgb 10.2 L (11.4-16.0) gm/dL Hct 30.4 L (34.0-46.0) % Plt Count 92 L (150-450) k/uL Chloride 110 H (98-107) mmol/L Total Bilirubin 2.1 H (0.2-1.3) mg/dL AST 350 H (14-36) U/L ALT 399 H (9-52) U/L Total Protein 5.3 L (6.3-8.2) g/dL Albumin 2.7 L (3.5-5.0) g/dL - Imaging and Cardiology Abdominal x-ray: report reviewed, image reviewed Assessment and Plan (1) Small bowel obstruction Current Visit: Yes Status: Acute Code(s): K56.609 - UNSP INTESTNL OBST, UNSP TO PARTIAL VERSUS COMPLETE OBST SNOMED Code(s): 674615126 (2) Crohns disease Current Visit: No Status: Acute Code(s): K50.90 - CROHN'S DISEASE, UNSPECIFIED, WITHOUT COMPLICATIONS SNOMED Code(s): 73860033 Plan: Likely ileus. Acute abdominal series is unremarkable. We'll start a diet. If she tolerates lunch and dinner, from my standpoint she could be discharged later this evening or in the morning. Currently nonsurgical.
--- NOTE | 2018-09-05 14:19 | P.DS ---
Providers Date of admission: 09/04/18 03:55 Expected date of discharge: 09/05/18 Attending physician: Augusto Kennedy MD Consults: 09/04/18 03:51 Consult Physician Routine Consulting Provider: Lynsey Saul Consult Reason/Comments: Small Bowel Obstruction Do you want consulting provider notified?: Yes Primary care physician: Nancy Meehan - Discharge Diagnosis(es) (1) Partial small bowel obstruction Current Visit: Yes Status: Acute (2) Crohns disease Current Visit: No Status: Acute (3) Hypothyroidism Current Visit: Yes Status: Acute Hospital Course: The patient is a 63 yo F with a PMH of crohn's disease w/ subsequent colectomy and ileostomy creation 40 years ago and multiple subsequent abdominal surgeries along wih multiple bouts of SBO presented to the ED for abdominal pain and decreased ileostomy output. Indicated a low-grade obstruction proximal to the stoma with a peristomal hernia containing dilated small bowel, patient was quickly made nothing by mouth started on fluids along with IV narcotics including Dilaudid and IV antiemetics with Zofran. Gen. surgery was consulted and patient was seen by Dr. Saul who recommended conservative management with watchful waiting as a patient had began passing stools hence there is no need for NG tube to low intermittent suctioning, repeat abdominal x-rays showed nonspecific abdomen. The patient's diet was advanced from clears back to regular diet which she tolerated well on day of discharge. She was subsequently sent home in stable condition and instructed to follow-up with her PCP. This discharge process took approximately 35 minutes. Focused exam GI: Soft nontender nondistended normoactive bowel sounds, Right lower quadrant ostomy without any significant tenderness, guarding, rebound. No significant peristomal hernia is palpated, surgical scars noted Patient Condition at Discharge: Good Plan - Discharge Summary Discharge Rx Participant: Yes New Discharge Prescriptions: No Action Levothyroxine Sodium [Synthroid] 100 mcg PO MOTUWETHFRSA Ferrous Sulfate [Iron (65 MG Elemental)] 325 mg PO DAILY Cholecalciferol [Vitamin D3] 2,000 unit PO DAILY Adalimumab [Humira(Cf) Pen] 20 mg SQ Q14D Magnesium 200 mg PO DAILY Mesalamine [Pentasa] 1,500 mg PO BID Mesalamine [Pentasa] 1,000 mg PO AC-LUNCH Budesonide [Budesonide EC] 3 mg PO DAILY Discharge Medication List Levothyroxine Sodium [Synthroid] 100 mcg PO MOTUWETHFRSA 06/27/15 [History] Adalimumab [Humira(Cf) Pen] 20 mg SQ Q14D 05/20/18 [History] Cholecalciferol [Vitamin D3] 2,000 unit PO DAILY 05/20/18 [History] Ferrous Sulfate [Iron (65 MG Elemental)] 325 mg PO DAILY 05/20/18 [History] Magnesium 200 mg PO DAILY 05/20/18 [History] Budesonide [Budesonide EC] 3 mg PO DAILY 09/04/18 [History] Mesalamine [Pentasa] 1,000 mg PO AC-LUNCH 09/04/18 [History] Mesalamine [Pentasa] 1,500 mg PO BID 09/04/18 [History] Follow up Appointment(s)/Referral(s): Nancy Meehan MD [Primary Care Provider] - 1-2 days
[2018-09-05 16:50] VITALS: BP 124/74; PULSE 62; RESP 18; TEMP 98.4
[2018-09-05] MEDS: ACETAMINOPHEN TAB 325 MG TAB PO PRN (17:15)
== END 2018-09-05 17:53 | disposition home or self-care (01) | DRG 387 ==
LOC: EC 23:46 → 6PED 09-04 03:55
PROVIDERS: ADMIT Internal Medicine; ATTEND Internal Medicine
DX: K50.90 Crohn's disease, unspecified, without complications (principal); K43.5 Parastomal hernia without obstruction or gangrene; E89.0 Postprocedural hypothyroidism; Z79.890 Hormone replacement therapy; Z83.3 Family history of diabetes mellitus; Z87.891 Personal history of nicotine dependence; Z90.710 Acquired absence of both cervix and uterus; Z93.2 Ileostomy status; Z90.49 Acquired absence of other specified parts of digestive tract; Z88.2 Allergy status to sulfonamides; Z79.899 Other long term (current) drug therapy
CPT/HCPCS: 36415; 74019; 74177; 80053; 81001; 82150; 83605; 83690; 85025; 96361; 96374; 96375; 99285

== ENCOUNTER → 2019-08-27 | Outpatient (CLI) | payer OTHER ==
[2019-08-27 14:57] LABS: Basophils # (A) 0.1 k/uL (0-0.2); Basophils % (A) 1 %; Eosinophils # (A) 0.1 k/uL (0-0.7); Eosinophils % (A) 1 %; HCT 38.8 % (34.0-46.0); HGB 12.8 gm/dL (11.4-16.0); Lymphocytes # (A) 1.3 k/uL (1.0-4.8); Lymphocytes % (A) 18 %; MCH 32.2 pg (25.0-35.0); MCV 97.5 fL (80.0-100.0); Mean Platelet Volume 7.3; Monocytes # (A) 0.4 k/uL (0-1.0); Monocytes % (A) 5 %; Neutrophils # (A) 5.2 k/uL (1.3-7.7); Neutrophils % (A) 73 %; Platelet Count 197 k/uL (150-450); RBC 3.98 m/uL (3.80-5.40); RDW 12.7 % (11.5-15.5); WBC 7.1 k/uL (3.8-10.6)
[2019-08-27 15:19] LABS: ALT 20 U/L (4-34); AST 48 U/L (14-36); African American GFR (CKD) >90 (>60 ml/min/1.73 sqM); Albumin 4.2 g/dL (3.5-5.0); Alkaline Phosphatase 48 U/L (38-126); Anion Gap 5 mmol/L; Blood Urea Nitrogen 20 mg/dL (7-17); Calcium 9.2 mg/dL (8.4-10.2); Carbon Dioxide 28 mmol/L (22-30); Chloride 102 mmol/L (98-107); Glucose 89 mg/dL (74-99); Non-African American GFR(CKD) 81 (>60 ml/min/1.73 sqM); Sodium 135 mmol/L (137-145); Total Bilirubin 1.9 mg/dL (0.2-1.3); Total Protein 7.8 g/dL (6.3-8.2)
[2019-08-27 15:20] LABS: C Reactive Protein <5.0 mg/L (<10.0); Potassium 5.1 mmol/L (3.5-5.1)
[2019-08-27 15:59] LABS: Erythrocyte Sedimentation Rate 29 mm/hr (0-20)
--- NOTE | 2019-08-27 19:53 | CT ---
EXAMINATION TYPE: CT abdomen pelvis w con DATE OF EXAM: 08/27/2019 COMPARISON: 09/04/2018 HISTORY: drainage at ostomy site, Cutaneous abscess, unspecified CT DLP: 362.5 mGycm CONTRAST: CT scan of the abdomen and pelvis is performed with Oral Contrast and with IV Contrast, patient injec dhruv with 100 mL of Isovue 300. FINDINGS: LUNG BASES-: No visible nodule. No infiltrate. LIVER/GB: The gallbladder surgically absent. No space occupying hepatic lesion. Biliary tree is of normal caliber. PANCREAS: No inflammation. No distinct mass. SPLEEN: No splenic enlargement. No lesion seen. ADRENALS: No nodule. No thickening. KIDNEYS/BLADDER: No hydronephrosis. No nephrolithiasis. Stable simple cyst lower pole left kidney. Urinary bladder grossly unremarkable. BOWEL: Status post colectomy with a Keita's pouch and the right lower quadrant ileostomy. Parastoma l hernia is again noted. I do not see evidence for abscess at ostomy site. There is evidence of media l skin thickening which may reflect cellulitis. Small bowel is of normal caliber. Surgical clips note d within the pelvis. GENITAL ORGANS: Hysterectomy changes noted. LYMPH NODES: No greater than 1cm abdominal or pelvic lymph nodes are appreciated. AORTA: No significant abnormality. OSSEOUS STRUCTURES: No significant abnormality is seen. OTHER: No significant additional abnormality is seen. IMPRESSION: 1. Skin thickening at the ostomy site medially without evidence for abscess. Correlate for cellulitis . Parastomal hernia as noted.
== END | disposition home or self-care (01) ==
LOC: RADCTMAIN 10:29
PROVIDERS: ATTEND Internal Medicine Gastroenterology
DX: R23.4 Changes in skin texture (principal); K43.5 Parastomal hernia without obstruction or gangrene
CPT/HCPCS: 80053; 85652; 85025; 86140; 74177; 36415; Q9967

== ENCOUNTER 2020-03-03 12:37 | Observation (INO) | payer OTHER ==
[2020-03-03 13:32] LABS: Basophils # (A) 0.1 k/uL (0-0.2); Basophils % (A) 1 %; Eosinophils # (A) 0.3 k/uL (0-0.7); Eosinophils % (A) 3 %; HCT 44.3 % (34.0-46.0); Lymphocytes # (A) 1.7 k/uL (1.0-4.8); Lymphocytes % (A) 18 %; MCH 32.8 pg (25.0-35.0); MCHC 33.9 g/dL (31.0-37.0); MCV 96.6 fL (80.0-100.0); Monocytes # (A) 0.6 k/uL (0-1.0); Monocytes % (A) 6 %; Neutrophils % (A) 71 %; Platelet Count 217 k/uL (150-450); RBC 4.58 m/uL (3.80-5.40); WBC 9.9 k/uL (3.8-10.6)
--- NOTE | 2020-03-03 13:34 | ED ---
General Adult HPI - General Chief complaint: Extremity Injury, Lower Stated complaint: R Leg Pain Time Seen by Provider: 03/03/20 12:55 Source: patient, RN notes reviewed, old records reviewed Mode of arrival: wheelchair Limitations: no limitations - History of Present Illness Initial comments: 65-year-old female history of DVT PE presenting for evaluation of right lower leg pain and swelling. Patient has pain from the foot to the hip. She also has noted some swelling. She had been seen at an outside hospital and was evaluated for pulmonary embolism. She states she did have a computed tomography scan at that time which was reported as negative. She is not currently on any anticoagulation secondary to rectal bleeding from colitis. Most recent pulmonary embolism was approximately 3 years ago. Denies fever. Denies cough or URI symptoms. Denies chest pain. - Related Data Home Medications Medication Instructions Recorded Confirmed Levothyroxine Sodium [Synthroid] 100 mcg PO MOTUWETHFRSA 06/27/15 09/04/18 Adalimumab [Humira(Cf) Pen] 20 mg SQ Q14D 05/20/18 09/04/18 Cholecalciferol [Vitamin D3 (25 2,000 unit PO DAILY 05/20/18 09/04/18 Mcg = 1000 Iu)] Ferrous Sulfate [Iron (65 MG 325 mg PO DAILY 05/20/18 09/04/18 Elemental)] Magnesium 200 mg PO DAILY 05/20/18 09/04/18 Budesonide [Budesonide EC] 3 mg PO DAILY 09/04/18 09/04/18 Mesalamine [Pentasa] 1,000 mg PO AC-LUNCH 09/04/18 09/04/18 Mesalamine [Pentasa] 1,500 mg PO BID 09/04/18 09/04/18 Allergies Allergy/AdvReac Type Severity Reaction Status Date / Time Sulfa (Sulfonamide Allergy Unknown Verified 03/03/20 12:51 Antibiotics) Review of Systems ROS Statement: Those systems with pertinent positive or pertinent negative responses have been documented in the HPI. ROS Other: All systems not noted in ROS Statement are negative. Past Medical History Past Medical History: Thyroid Disorder Additional Past Medical History / Comment(s): crohns History of Any Multi-Drug Resistant Organisms: None Reported Past Surgical History: Bowel Resection, Cholecystectomy, Hysterectomy Additional Past Surgical History / Comment(s): ileostomy, thyroidectomy Past Anesthesia/Blood Transfusion Reactions: No Reported Reaction Past Psychological History: No Psychological Hx Reported Smoking Status: Never smoker Past Alcohol Use History: Rare Past Drug Use History: None Reported - Past Family History Daughter(s) Family Medical History: Diabetes Mellitus General Exam Limitations: no limitations General appearance: alert, in no apparent distress Head exam: Present: atraumatic, normocephalic Eye exam: Present: normal appearance, PERRL ENT exam: Present: normal exam Neck exam: Present: normal inspection. Absent: tenderness, meningismus Respiratory exam: Present: normal lung sounds bilaterally. Absent: respiratory distress, wheezes Cardiovascular Exam: Present: regular rate, normal rhythm GI/Abdominal exam: Present: soft. Absent: distended, tenderness Extremities exam: Present: calf tenderness, other (Right lower extremity, dorsa lis pedis pulse 2+, there is some soft tissue swelling, and tender vein on the dorsal surface of the right foot. No erythema.) Course Vital Signs 03/03/20 03/03/20 12:52 15:06 Temperature 98 F Pulse Rate 87 72 Respiratory 18 18 Rate Blood Pressure 100/76 131/73 O2 Sat by Pulse 99 97 Oximetry EKG Findings - EKG Comments: EKG Findings:: EKG: Normal sinus rhythm, rate of 65, NE interval 140, QRS duration 68, QTC 43, no ST segment elevation Medical Decision Making - Medical Decision Making 65-year-old with right lower leg swelling, fatigue, poor appetite and diarrhea. Patient concerned about DVT, ultrasound is performed which is negative for DVT. Patient does admit to diarrhea and poor appetite. Laboratory testing reveals normal CBC, she has a doubling of her baseline creatinine and potassium 5.7. S he has an EKG showing sinus rhythm without signs of hyperkalemia or ischemic change. She is started on IV fluids. She will be admitted for IV hydration and repeat laboratory testing in the morning. Case discussed with Dr. Smith who will admit. - Lab Data Result diagrams: 03/03/20 13:21 03/03/20 13:21 Lab Results 03/03/20 03/03/20 03/03/20 Range/Units 13:21 13:21 13:21 WBC 9.9 (3.8-10.6) k/uL RBC 4.58 (3.80-5.40) m/uL Hgb 15.0 (11.4-16.0) gm/dL Hct 44.3 (34.0-46.0) % MCV 96.6 (80.0-100.0) fL MCH 32.8 (25.0-35.0) pg MCHC 33.9 (31.0-37.0) g/dL RDW 12.0 (11.5-15.5) % Plt Count 217 (150-450) k/uL Neutrophils % 71 % Lymphocytes % 18 % Monocytes % 6 % Eosinophils % 3 % Basophils % 1 % Neutrophils # 7.0 (1.3-7.7) k/uL Lymphocytes # 1.7 (1.0-4.8) k/uL Monocytes # 0.6 (0-1.0) k/uL Eosinophils # 0.3 (0-0.7) k/uL Basophils # 0.1 (0-0.2) k/uL PT 9.4 (9.0-12.0) sec INR 0.9 (<1.2) APTT 20.4 L (22.0-30.0) sec Sodium 134 L (137-145) mmol/L Potassium 5.7 H (3.5-5.1) mmol/L Chloride 104 (98-107) mmol/L Carbon Dioxide 20 L (22-30) mmol/L Anion Gap 10 mmol/L BUN 34 H (7-17) mg/dL Creatinine 1.32 H (0.52-1.04) mg/dL Est GFR (CKD-EPI)AfAm 49 (>60 ml/min/1.73 sqM) Est GFR (CKD-EPI)NonAf 43 (>60 ml/min/1.73 sqM) Glucose 102 H (74-99) mg/dL Calcium 9.6 (8.4-10.2) mg/dL Disposition Clinical Impression: Dehydration, Acute kidney injury Disposition: ADMITTED IP TO THIS [facility] Condition: Stable Is patient prescribed a controlled substance at d/c from ED?: No Referrals: Nancy Meehan MD [Primary Care Provider] - 1-2 days Decision to Admit Reason: Admit from EC Decision Date: 03/03/20 Decision Time: 15:16
[2020-03-03 13:43] LABS: Calcium 9.6 mg/dL (8.4-10.2); Potassium 5.7 mmol/L (3.5-5.1)
[2020-03-03 14:02] LABS: INR 0.9 (<1.2); Prothrombin Time 9.4 sec (9.0-12.0)
[2020-03-03 14:21] LABS: Partial Thromboplastin Time 20.4 sec (22.0-30.0)
--- NOTE | 2020-03-03 14:22 | US ---
EXAMINATION TYPE: US venous doppler duplex LE RT DATE OF EXAM: 03/03/2020 1:58 PM COMPARISON: NONE CLINICAL HISTORY: DVT?. Right foot pain and swelling x 3 days, history of right leg DVT and PE SIDE PERFORMED: Right TECHNIQUE: The lower extremity deep venous system is examined utilizing real time linear array sonog ziyad with graded compression, doppler sonography and color-flow sonography. VESSELS IMAGED: External Iliac Vein (EIV) Common Femoral Vein Deep Femoral Vein Greater Saphenous Vein * Femoral Vein Popliteal Vein Small Saphenous Vein * Proximal Calf Veins (* superficial vessels) Right Leg: Negative for DVT. There is normal flow, compressibility, and vascular waveforms of the ve ins of the right lower extremity. IMPRESSION: No deep venous thrombosis of the right lower extremity.
[2020-03-03] MEDS ORDERED: SODIUM CHLORIDE 0.9% 500 ML 500 ML IV ONE (14:41)
[2020-03-03] MEDS ORDERED: NALOXONE 0.4 MG/ML 1 ML VIAL IV PRN (15:02)
[2020-03-03] MEDS: SODIUM CHLORIDE 0.9% 1,000 ML IV SCH (15:03)
[2020-03-03] MEDS: ACETAMINOPHEN TAB 325 MG TAB PO PRN (16:32)
[2020-03-03 17:00] LABS: Appearance,Urine Clear (Clear); Bilirubin,Urine Negative (Negative); Blood,Urine Trace (Negative); Color,Urine Yellow; Glucose,Urine (UA) Negative (Negative); Hyaline Casts,Urine 9 /lpf (0-2); Ketones,Urine Negative (Negative); Leukocyte Esterase,Urine Negative (Negative); Mucus,Urine Rare /hpf; Nitrite,Urine Negative (Negative); Protein,Urine Trace (Negative); RBC,Urine 1 /hpf (0-5); Specific Gravity,Urine 1.028 (1.001-1.035); Squamous Epithelial Cell,Urine <1 /hpf (0-4); Urobilinogen,Urine <2.0 mg/dL (<2.0); WBC,Urine 1 /hpf (0-5)
[2020-03-03] MEDS ORDERED: IBUPROFEN 400 MG TAB PO PRN (19:08)
[2020-03-03] MEDS ORDERED: TEMAZEPAM 15 MG CAP PO PRN (19:09)
[2020-03-03] MEDS ORDERED: ALPRAZolam 0.25 MG TAB PO PRN (19:09)
[2020-03-03] MEDS ORDERED: HYDROcodone/APAP 5-325MG 1 EACH TAB PO PRN (19:09)
--- NOTE | 2020-03-03 20:02 | XR ---
EXAMINATION TYPE: XR chest 1V portable DATE OF EXAM: 03/03/2020 COMPARISON: 05/21/2018 HISTORY: Chest pain short of breath TECHNIQUE: FINDINGS: There is no heart failure nor confluent pneumonic infiltrate. Costophrenic angles are clear . Bony thorax appears intact. IMPRESSION: No active cardiopulmonary disease. No change. Normal heart.
[2020-03-03 20:06] LABS: Uric Acid 4.7 mg/dL (3.7-7.4)
[2020-03-03] MEDS: methylPREDNISolone SOD SUCCI 125 MG/2 ML VIAL IV SCH (20:09)
--- NOTE | 2020-03-03 20:09 | HP ---
HISTORY AND PHYSICAL CHIEF COMPLAINTS: Pain and swelling of the right leg. HISTORY OF PRESENT ILLNESS: This 65-year-old woman with a past medical history of multiple medical problems, including history of Crohn's disease, history of bowel resection, history of cholecystectomy, history hysterectomy, history of ileostomy, being followed by Dr. Nancy Meehan in the outpatient setting, was not feeling well over the past several days. The patient had swelling and pain of the right foot and the patient apparently went to [facility] over the weekend and had extensive evaluation, including CT angio which showed no evidence of pulmonary embolism. Because of lack of improvement, the patient presented to [facility] and was admitted for evaluation and treatment. The patient was found to be dehydrated. Patient also had hyperkalemia and renal failure. There is no history of any fever, rigor or chills. No history of headache, loss of consciousness, seizures at this time. The pain is mostly on the foot with some swelling also on the right leg. Ultrasound was negative for DVT. There is no history of any fever, rigor or chills. PAST MEDICAL HISTORY: History of hypothyroidism, Crohn's, bowel resection, cholecystectomy, hysterectomy, ileostomy, thyroidectomy. HOME MEDICATIONS: Ibuprofen, Excedrin, Pentasa, magnesium, Synthroid, iron, vitamin D3, Humira every 2 weeks 20 mg subcutaneously. ALLERGIES: SULFA. FAMILY HISTORY: History of diabetes mellitus in the family. SOCIAL HISTORY: No history of smoking. Occasional alcohol intake. REVIEW OF SYSTEMS: ENT: No diminished hearing. No diminished vision. CARDIOVASCULAR SYSTEM: No angina, palpitations. RESPIRATORY SYSTEM: No cough, hemoptysis. GI: Patient has diarrhea. : No dysuria or retention. NERVOUS SYSTEM: No numbness, weakness. ALLERGY/IMMUNOLOGY: No asthma, hayfever. MUSCULOSKELETAL: As mentioned earlier. HEMATOLOGY/ONCOLOGY: No history of anemia. ENDOCRINE: Hypothyroidism present. CONSTITUTIONAL: As mentioned earlier. DERMATOLOGY: Negative. RHEUMATOLOGY: As mentioned earlier. PSYCHIATRY: As mentioned earlier. PHYSICAL EXAMINATION: Patient alert and oriented x3. Pulse 76, blood pressure 106/74, respiration 18, temperature 98.7, pulse ox 99% on room air. HEENT: Conjunctivae normal. Oral mucosa moist. NECK: No jugular venous distention. No carotid bruit. No lymph node enlargement. CARDIOVASCULAR SYSTEM: S1, S2 muffled. No S3. No S4. RESPIRATORY SYSTEM: Breath sounds diminished at the bases. A few scattered rhonchi. No crackles. ABDOMEN: Soft. Ileostomy present. Non-tender. No mass palpable. No ascites. Bowel sounds present. LEGS: Significant pain and swelling of the right foot present. Some tenderness also present. LYMPHATICS: No lymph node palpable in neck, axillae or groin. JOINTS: No active deforming arthropathy. NERVOUS SYSTEM: Higher functions as mentioned earlier. Moves all 4 limbs. No focal deficit. LABS: Labs at this time show CBC within normal limits and APTT is 20.4. Sodium 134, potassium 5.7. Creatinine is 1.3. LFTs are not available. UA noted. ASSESSMENT: 1. Acute right foot pain for evaluation. Rule out acute gout. 2. Crohn's disease, acute exacerbation. 3. Acute renal failure, possibly acute tubular necrosis and prerenal renal factors. 4. Hyperkalemia secondary to renal failure. 5. Hyponatremia. 6. Mild acidosis. 7. Hypothyroidism. 8. History of bowel resection. 9. History of ileostomy. 10.Cholecystectomy. 11.Hysterectomy. 12.History of thyroidectomy. 13.FULL CODE. RECOMMENDATIONS AND DISCUSSION: In this 65-year-old woman who presented with multiple complex medical issues, we will monitor the patient closely, continue the current medications, continue with symptomatic treatment. Otherwise, avoid nephrotoxic medications. Pain management. I would also recommend basic labs. Empiric steroids. Consult Dr. Rosa. IV fluids cautiously. Guarded prognosis because of multiple complex medical issues. Further recommendations to follow. A copy of this dictation is being forwarded to Dr. Nancy Meehan, who is the primary physician. MMODL / IJN: [id number] /
[2020-03-03] MEDS: HYDROmorphone 0.5 MG/0.5 ML SYRINGE IVP PRN (20:19)
[2020-03-03 20:42] LABS: Glucose,Whole Blood 115 mg/dL (75-99)
[2020-03-03] MEDS: INSULIN ASPART (NovoLOG) 100 UNIT/ML VIAL SQ SCH (20:57)
[2020-03-03] MEDS: HEPARIN SODIUM,PORCINE 5,000 UNIT/ML 1 ML VIAL SQ SCH (20:59)
[2020-03-03 22:59] LABS: C Reactive Protein 8.2 mg/L (<10.0)
[2020-03-04] MEDS: methylPREDNISolone SOD SUCCI 125 MG/2 ML VIAL IV SCH ×3 (00:18→12:22)
[2020-03-04] MEDS: SODIUM CHLORIDE 0.9% 1,000 ML IV SCH ×3 (00:18→20:15)
[2020-03-04] MEDS: HYDROmorphone 0.5 MG/0.5 ML SYRINGE IVP PRN ×3 (02:55→23:58)
[2020-03-04] MEDS: LEVOTHYROXINE 100 MCG TAB PO SCH (05:44)
[2020-03-04 06:17] LABS: Glucose,Whole Blood 134 mg/dL (75-99)
[2020-03-04 06:18] LABS: Basophils % (A) 0 %; Eosinophils % (A) 0 %; HCT 36.2 % (34.0-46.0); Lymphocytes % (A) 19 %; MCH 32.6 pg (25.0-35.0); MCHC 33.3 g/dL (31.0-37.0); MCV 98.1 fL (80.0-100.0); Mean Platelet Volume 7.2; Monocytes # (A) 0.1 k/uL (0-1.0); Monocytes % (A) 1 %; Neutrophils # (A) 4.1 k/uL (1.3-7.7); Neutrophils % (A) 79 %; Platelet Count 168 k/uL (150-450); RBC 3.69 m/uL (3.80-5.40); RDW 11.7 % (11.5-15.5); WBC 5.1 k/uL (3.8-10.6)
[2020-03-04 06:31] LABS: Calcium 8.5 mg/dL (8.4-10.2); Magnesium 1.8 mg/dL (1.6-2.3); Potassium 5.2 mmol/L (3.5-5.1); Total Bilirubin 0.8 mg/dL (0.2-1.3); Total Protein 6.1 g/dL (6.3-8.2)
[2020-03-04] MEDS: ACETAMINOPHEN TAB 325 MG TAB PO PRN (08:54)
[2020-03-04] MEDS: PANTOPRAZOLE 40 MG TABLET PO SCH (08:55)
[2020-03-04] MEDS: MULTIVITAMINS, THERA 1 EACH TAB PO SCH (08:55)
[2020-03-04] MEDS: BALSALAZIDE DISODIUM 750 MG CAPSULE PO SCH ×3 (08:55→20:42)
[2020-03-04] MEDS: CHOLECALCIFEROL 1,000 UNIT TAB PO SCH (08:55)
[2020-03-04] MEDS: HEPARIN SODIUM,PORCINE 5,000 UNIT/ML 1 ML VIAL SQ SCH ×2 (08:56→20:10)
[2020-03-04] MEDS: INSULIN ASPART (NovoLOG) 100 UNIT/ML VIAL SQ SCH ×4 (08:56→20:42)
[2020-03-04] MEDS: MAGNESIUM OXIDE 400 MG TAB PO SCH (09:05)
[2020-03-04 11:48] LABS: Glucose,Whole Blood 187 mg/dL (75-99)
[2020-03-04] MEDS: ASPIRIN-ACET-CAFF 250-250-65MG 1 EACH TAB PO PRN (12:22)
[2020-03-04] MEDS ORDERED: MESALAMINE 500 MG PO SCH (14:30)
[2020-03-04] MEDS: methylPREDNISolone SOD SUCCI 40 MG/ML 1 ML VIAL IV SCH ×2 (15:02→23:58)
[2020-03-04 16:37] LABS: Glucose,Whole Blood 139 mg/dL (75-99)
--- NOTE | 2020-03-04 17:53 | PN ---
PROGRESS NOTE DATE OF SERVICE: 03/04/2020 This 65-year-old woman who was admitted with significant pain and swelling of the right foot as well as possibly Crohn's disease, acute exacerbation, has been initiated on IV steroids at this time. The patient had multiple episodes of diarrhea. Patient complains of weakness also. No chest pain. No palpitations. Past medical history reviewed. REVIEW OF SYSTEMS: CARDIOVASCULAR SYSTEM: No angina, palpitations. RESPIRATORY SYSTEM: As mentioned earlier. GI: As mentioned earlier. : No dysuria or retention. MUSCULOSKELETAL: As mentioned earlier. CURRENT MEDICATIONS: Reviewed. They include Tylenol 650 q.6 p.r.n., Excedrin, [place], Xanax, aspirin, Colazal, vitamin D3, heparin, Dilaudid, Solu-Medrol, Narcan, Restoril. Doses are reviewed. PHYSICAL EXAMINATION: Patient is alert, oriented x3. Pulse 88, blood pressure 108/64, respirations 16, temperature 98 degrees, pulse ox 96% on room air. HEENT: Conjunctivae normal. NECK: No jugular venous distention. CARDIOVASCULAR SYSTEM: S1, S2 muffled. RESPIRATORY SYSTEM: Breath sounds diminished at the bases. A few scattered rhonchi and crackles. ABDOMEN: Soft. Mild diffuse discomfort on palpation. No guarding or rigidity. No mass palpable. LEGS: No edema. No swelling. NERVOUS SYSTEM: No focal deficit. LABS: Today's labs are sodium 132, potassium ntd.2. Other labs are noted. C difficile is negative. Accu-Cheks noted. ASSESSMENT: 1. Acute right foot pain for evaluation. Possible acute thrombophlebitis, possibly acute vasculitis secondary to Crohn's. 2. Crohn's disease, acute exacerbation. 3. Acute renal failure, possibly acute tubular necrosis with prerenal renal factors. 4. Hyperkalemia secondary to renal failure. 5. Hyponatremia. 6. Mild acidosis. 7. Hypothyroidism. 8. History of bowel resection. 9. History of ileostomy. 10.History of cholecystectomy. 11.History of hysterectomy. 12.History of thyroidectomy. 13.FULL CODE. RECOMMENDATIONS AND DISCUSSION: I recommend to continue current medications, continue with the monitoring, symptomatic treatment. Otherwise at this time I recommend continuing with IV steroids. Repeat labs have been ordered. Symptomatic treatment. Monitor blood sugars closely. COVID- 19 has been requested. Guarded prognosis. Further recommendations to follow. MMODL / IJN: [id number] / MTDD
[2020-03-04 20:20] LABS: Glucose,Whole Blood 165 mg/dL (75-99)
--- NOTE | 2020-03-04 23:09 | CONS ---
CONSULTATION DATE OF DICTATION: 03/04/2020 REASON FOR CONSULTATION: Nausea, vomiting, increased ileostomy output. HISTORY OF PRESENT ILLNESS: The patient is a 65-year-old pleasant white female with longstanding history of Crohn's disease diagnosed in the . She is status post subtotal colectomy with ileostomy performed about 30 years ago. She developed recurrent Crohn's in 2017 and was diagnosed by in [facility]. She was subsequently started on Humira injections every 2 weeks. About a year ago she developed peristomal dermatitis and has been seeing Dermatology for that and recently is following at the wound center. She was apparently told that she has a fungal infection of the wound and hence was prescribed fluconazole for 14 days. A week after she started taking the medication she developed abdominal cramping, nausea, vomiting and increased ileostomy output. She was throwing up at least once or twice a day and ileostomy output continued to increase. No bleeding. She lost about 5 pounds in the last one week's duration. She also noted some swelling of the right lower extremity and some shortness of breath and hence went to the emergency room at [facility] and had a CT angiogram that was negative for pulmonary embolism. Because of clinical concern about DVT, she came to the hospital and subsequently was admitted for further evaluation. She did have a duplex of the right lower extremity which did not show any evidence of acute DVT. She was started on Solu-Medrol 60 mg q.6 hours and she is feeling better today. 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 PAST SURGICAL HISTORY: Total proctocolectomy with ileostomy, cholecystectomy, hysterectomy, thyroidectomy. HOME MEDICATIONS: Humira every 2 weeks, magnesium, Pentasa, Excedrin, ibuprofen, Synthroid, iron. ALLERGIES: SULFA. FAMILY HISTORY: Mother with diabetes mellitus. SOCIAL HISTORY: No smoking. No alcohol use. REVIEW OF SYSTEMS: CARDIOPULMONARY: No chest pain or shortness of breath. GENITOURINARY: No dysuria or hematuria. MUSCULOSKELETAL: She did have some cramping in her back and lower extremities. NEUROLOGY: Unremarkable. PSYCHIATRIC: Unremarkable. ENT/VISION: Unremarkable. CONSTITUTIONAL: Weight loss of 5 pounds. No fever, chills, night sweats. HEMATOLOGY: Unremarkable. ENDOCRINE: Unremarkable. PHYSICAL EXAMINATION: She appears comfortable. No apparent distress. Vital signs are stable. Blood pressure is 107/67, pulse rate 81, temperature 97.3. HEENT examination unremarkable. Conjunctivae pink. Sclerae anicteric. Oral cavity no lesions. NECK: No JVD or lymph node enlargement. CHEST: Clear to auscultation. HEART: Regular rate and rhythm. ABDOMEN: Soft. Non-tender. Non-distended. in the right lower quadrant area. There was periostomy dermatitis with mucosal redness, but no open wounds noted. EXTREMITIES: No pedal edema. SKIN: No rashes. NEUROLOGIC: Alert and oriented x3. No focal deficits. LABS/IMAGING: WBC 9.9, hemoglobin 15, platelets normal. Basic metabolic panel showed a sodium of 134, potassium 5.7, BUN 34, creatinine 1.32. AST and ALT are 77 and 54, respectively. T-bilirubin and alkaline phosphatase are within normal limits. C difficile negative. Ultrasound of the right lower extremity negative. IMPRESSION: 1. 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 It is likely that her symptoms could be related to side effects from fluconazole that she was started on about 2 weeks ago. However, possibility of exacerbation of Crohn's disease cannot be excluded. The patient was already started on Solu-Medrol 60 mg q.8 hours and her symptoms are gradually improving. 2. Periostomy dermatitis. 3. Hypothyroidism. RECOMMENDATIONS: 1. Decrease Solu-Medrol to 20 mg q.8 hours. 2. Advance diet as tolerated. 3. Monitor labs closely. 4. Repeat CRP and sedimentation rate tomorrow. 5. If her symptoms are improving, we can switch the IV steroids to oral prednisone 40 mg daily, and that can be tapered by 5 mg every week. In regards to the periostomy dermatitis, I suggested that she follow up with Dermatology following discharge from the hospital. Thank you for this consultation. MMODL / IJN: [id number] /
[2020-03-05] MEDS: LEVOTHYROXINE 100 MCG TAB PO SCH (05:49)
[2020-03-05] MEDS: SODIUM CHLORIDE 0.9% 1,000 ML IV SCH ×2 (05:50→17:37)
[2020-03-05] MEDS: ASPIRIN-ACET-CAFF 250-250-65MG 1 EACH TAB PO PRN (06:20)
[2020-03-05 06:29] LABS: Glucose,Whole Blood 131 mg/dL (75-99)
[2020-03-05] MEDS ORDERED: ONDANSETRON 4 MG/2 ML VIAL IVP PRN (08:16)
[2020-03-05] MEDS: INSULIN ASPART (NovoLOG) 100 UNIT/ML VIAL SQ SCH ×4 (08:40→22:28)
[2020-03-05] MEDS: methylPREDNISolone SOD SUCCI 40 MG/ML 1 ML VIAL IV SCH (08:45)
[2020-03-05] MEDS: MAGNESIUM OXIDE 400 MG TAB PO SCH (08:45)
[2020-03-05] MEDS: HEPARIN SODIUM,PORCINE 5,000 UNIT/ML 1 ML VIAL SQ SCH ×2 (08:45→22:28)
[2020-03-05] MEDS: CHOLECALCIFEROL 1,000 UNIT TAB PO SCH (08:46)
[2020-03-05] MEDS: ASPIRIN 325 MG TAB PO SCH (08:46)
[2020-03-05] MEDS: MULTIVITAMINS, THERA 1 EACH TAB PO SCH (08:46)
[2020-03-05] MEDS: BALSALAZIDE DISODIUM 750 MG CAPSULE PO SCH ×3 (08:50→22:27)
[2020-03-05] MEDS: HYDROmorphone 0.5 MG/0.5 ML SYRINGE IVP PRN ×2 (08:58→19:51)
[2020-03-05 09:28] LABS: Basophils % (A) 0 %; Eosinophils % (A) 0 %; HCT 33.9 % (34.0-46.0); HGB 10.8 gm/dL (11.4-16.0); Hypochromasia Slight; Lymphocytes # (A) 0.8 k/uL (1.0-4.8); Lymphocytes % (A) 5 %; MCH 32.5 pg (25.0-35.0); MCHC 31.9 g/dL (31.0-37.0); MCV 101.9 fL (80.0-100.0); Mean Platelet Volume 7.6; Monocytes # (A) 0.5 k/uL (0-1.0); Monocytes % (A) 3 %; Neutrophils % (A) 92 %; Platelet Count 162 k/uL (150-450); RBC 3.33 m/uL (3.80-5.40); RDW 12.2 % (11.5-15.5); WBC 16.4 k/uL (3.8-10.6)
[2020-03-05 09:47] LABS: Calcium 8.2 mg/dL (8.4-10.2); Potassium 4.4 mmol/L (3.5-5.1)
[2020-03-05] MEDS: PANTOPRAZOLE 40 MG TABLET PO SCH ×2 (10:54→17:37)
--- NOTE | 2020-03-05 10:57 | P.PN ---
Subjective Progress Note Date: 03/05/20 Principal diagnosis: Nausea, vomiting, and increased ileostomy output. A 65-year-old pleasant white female with a long standing history of Crohn's disease diagnosed in the . She is status post colectomy with ileostomy performed about 30 years ago. She developed recurrent Crohn's in 2017 that she is on Humira injections every 2 weeks and mesalamine. She presented to the emergency department for concerns with right lower extremity swelling. She has a history of prior DVT about 2 years ago. She also stated that she was started on Diflucan for a yeast infection on her abdomen. She has completed the medication however 5 days ago she started having some nausea and vomiting and increased ileostomy output. She was started on Solu-Medrol 60 mg every 6 hours, yesterday was changed to 20 mg every 8 hours. The patient states she is feeling better today. She has some mild nausea however no vomiting. There is no blood in her ileostomy output. Abdominal pain and cramping is better. Objective - Vital Signs Vital signs: Vital Signs Temp 98.2 F 03/05/20 03:00 Pulse 54 L 03/05/20 03:00 Resp 18 03/05/20 03:00 BP 96/60 03/05/20 03:00 Pulse Ox 97 03/05/20 03:00 Intake & Output 03/04/20 03/05/20 03/05/20 18:59 06:59 18:59 Intake Total 1720 Balance 1720 Intake: Intake, IV Titration 1600 Amount Sodium Chloride 0.9% 1, 1600 000 ml @ 100 mls/hr IV . Q10H [facility] Rx#:[id number] Oral 120 Other: Voiding Method Toilet # Voids 2 1 - Exam General appearance: The patient is alert, oriented, in no acute distress. HET: Head is normocephalic and atraumatic. Conjunctiva pink. Sclera anicteric. Neck: Supple without lymphadenopathy. Abdomen: Soft, nontender, nondistended with bowel sounds. Ileostomy with surrounding erythema and scaling. No guarding or rigidity. Extremities: Normal skin color and turgor. Mild swelling to the dorsal aspect of the right foot. Neurological: No focal deficits. Alert and oriented 3. - Labs CBC & Chem 7: 03/05/20 08:58 03/05/20 08:58 Labs: Abnormal Lab Results - Last 24 Hours (Table) 03/04/20 03/04/20 03/04/20 Range/Units 11:36 16:36 20:12 WBC (3.8-10.6) k/uL RBC (3.80-5.40) m/uL Hgb (11.4-16.0) gm/dL Hct (34.0-46.0) % MCV (80.0-100.0) fL Neutrophils # (1.3-7.7) k/uL Lymphocytes # (1.0-4.8) k/uL Sodium (137-145) mmol/L Chloride (98-107) mmol/L Carbon Dioxide (22-30) mmol/L BUN (7-17) mg/dL Glucose (74-99) mg/dL POC Glucose (mg/dL) 187 H 139 H 165 H (75-99) mg/dL Calcium (8.4-10.2) mg/dL 03/05/20 03/05/20 03/05/20 Range/Units 06:28 08:58 08:58 WBC 16.4 H (3.8-10.6) k/uL RBC 3.33 L (3.80-5.40) m/uL Hgb 10.8 L (11.4-16.0) gm/dL Hct 33.9 L (34.0-46.0) % MCV 101.9 H (80.0-100.0) fL Neutrophils # 15.0 H (1.3-7.7) k/uL Lymphocytes # 0.8 L (1.0-4.8) k/uL Sodium 135 L (137-145) mmol/L Chloride 114 H (98-107) mmol/L Carbon Dioxide 16 L (22-30) mmol/L BUN 20 H (7-17) mg/dL Glucose 134 H (74-99) mg/dL POC Glucose (mg/dL) 131 H (75-99) mg/dL Calcium 8.2 L (8.4-10.2) mg/dL Assessment and Plan (1) Crohns disease Narrative/Plan: C lady with a long standing history of Crohn's ileitis, status post total proctocolectomy with ileostomy 30 years ago. She is presently maintained on Humira every 2 weeks as well as mesalamine. She presented to the hospital with nausea, vomiting, and diarrhea for last 10 days duration. It is likely that her symptoms could be related to side effects from fluconazole that she was started on about 2 weeks ago. However possibility of exacerbation of Crohn's disease cannot be excluded. The patient was initially started on Solu-Medrol 60 mg every 8 hours and her symptoms are gradually improving. Her Solu-Medrol was decreased to 20 mg every 8 hours with continued improvement in symptoms. 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 She was recently started on a 14 day course of Diflucan. Current Visit: Yes Status: Acute Code(s): L30.9 - DERMATITIS, UNSPECIFIED SNOMED Code(s): 742966246 (3) Hypothyroidism Current Visit: No Status: Acute Code(s): E03.9 - HYPOTHYROIDISM, UNSPECIFIED SNOMED Code(s): 35048489 Plan: 1. Continue Solu-Medrol 20 mg every 8 hours, recommend prednisone 40mg daily tapered by 10mg weekly upon discharge. 2. Advance diet as tolerated 3. Monitor labs closely 4. CRP and sedimentation rate 5. Recommended to patient to follow-up with dermatology following discharge for periostomy dermatitis. The impression and plan of care has been dictated as directed. Dr. Anam Rosa I performed a history and examination of this patient, discussed the same with the dictator. I agree with the dictator's note ,documented as a scribe. Any additional findings or plans will be noted.
[2020-03-05 11:41] LABS: Glucose,Whole Blood 113 mg/dL (75-99)
[2020-03-05] MEDS: SODIUM BICARBONATE TAB 650 MG TAB PO SCH ×2 (15:49→22:26)
--- NOTE | 2020-03-05 16:04 | PN ---
PROGRESS NOTE DATE OF SERVICE: 03/05/2020 This 65-year-old woman who was admitted with significant pain and swelling of the right foot has possibly Crohn's disease, acute exacerbation. The ileostomy output is thickening at this time. The steroid dose has been reduced. No chest pain. No palpitations. No fever. The foot is slightly better. Some swelling persists. Pain is much better. PHYSICAL EXAMINATION: Alert and oriented x3. Pulse 54, blood pressure 92/54, respirations 16, temperature 97.7, pulse ox 97% on room air. HEENT: Conjunctivae normal. NECK: No jugular venous distention. CARDIOVASCULAR SYSTEM: S1, S2 muffled. RESPIRATORY SYSTEM: Breath sounds diminished at the bases. No rhonchi. No crackles. ABDOMEN: Soft, non-tender. No mass palpable. LEGS: Right foot has some swelling and some tenderness present. LABS: WBC 16.4, hemoglobin 10.8, sodium 135, potassium 4.4, CO2 16. ASSESSMENT: 1. Acute right foot pain for evaluation; possible acute thrombophlebitis related to acute vasculitis secondary to Crohn's. 2. Right foot swelling. 3. Crohn's disease, acute exacerbation. 4. Acute renal failure, possibly acute tubular necrosis secondary to prerenal factors. 5. Decreased carbon dioxide. 6. Hyperkalemia secondary to renal failure, present on admission, improved. 7. Hyponatremia. 8. Mild acidosis, metabolic. 9. Hypothyroidism. 10.History of bowel resection. 11.History ileostomy. 12.History of cholecystectomy. 13.History of hysterectomy. 14.History of thyroidectomy. 15.FULL CODE. RECOMMENDATIONS AND DISCUSSION: I recommend to continue current medications, continue with the monitoring, symptomatic treatment. I would recommend adding a small dose of bicarb. Otherwise, continue to monitor. Taper the steroids. Guarded prognosis. Continue the rest of the medications. DVT prophylaxis. Further recommendations to follow. MMODL / IJN: [id number] /
[2020-03-05 16:38] LABS: Glucose,Whole Blood 141 mg/dL (75-99)
[2020-03-05 20:58] LABS: Glucose,Whole Blood 137 mg/dL (75-99)
[2020-03-06] MEDS: SODIUM CHLORIDE 0.9% 1,000 ML IV SCH ×2 (03:45→10:50)
[2020-03-06] MEDS: HYDROmorphone 0.5 MG/0.5 ML SYRINGE IVP PRN (04:26)
[2020-03-06] MEDS: LEVOTHYROXINE 100 MCG TAB PO SCH (05:59)
[2020-03-06 06:37] LABS: Glucose,Whole Blood 97 mg/dL (75-99)
[2020-03-06] MEDS: INSULIN ASPART (NovoLOG) 100 UNIT/ML VIAL SQ SCH ×2 (07:29→12:00)
[2020-03-06 08:23] LABS: Basophils % (A) 0 %; Eosinophils # (A) 0.1 k/uL (0-0.7); Eosinophils % (A) 1 %; HCT 37.2 % (34.0-46.0); HGB 11.7 gm/dL (11.4-16.0); Lymphocytes # (A) 1.7 k/uL (1.0-4.8); Lymphocytes % (A) 16 %; MCH 31.8 pg (25.0-35.0); MCHC 31.4 g/dL (31.0-37.0); MCV 101.2 fL (80.0-100.0); Mean Platelet Volume 7.8; Monocytes # (A) 0.5 k/uL (0-1.0); Monocytes % (A) 4 %; Neutrophils # (A) 8.2 k/uL (1.3-7.7); Neutrophils % (A) 77 %; Platelet Count 189 k/uL (150-450); RBC 3.67 m/uL (3.80-5.40); RDW 12.9 % (11.5-15.5); WBC 10.6 k/uL (3.8-10.6)
[2020-03-06 08:24] LABS: Calcium 8.4 mg/dL (8.4-10.2)
[2020-03-06 08:48] VITALS: BP 94/59; PULSE 60; RESP 14; TEMP 97.6
[2020-03-06] MEDS: ASPIRIN 325 MG TAB PO SCH (08:49)
[2020-03-06] MEDS: SODIUM BICARBONATE TAB 650 MG TAB PO SCH (08:49)
[2020-03-06] MEDS: HEPARIN SODIUM,PORCINE 5,000 UNIT/ML 1 ML VIAL SQ SCH (08:49)
[2020-03-06] MEDS: PANTOPRAZOLE 40 MG TABLET PO SCH (08:50)
[2020-03-06] MEDS: MAGNESIUM OXIDE 400 MG TAB PO SCH (08:50)
[2020-03-06] MEDS: CHOLECALCIFEROL 1,000 UNIT TAB PO SCH (08:50)
[2020-03-06] MEDS: MULTIVITAMINS, THERA 1 EACH TAB PO SCH (08:50)
[2020-03-06] MEDS: BALSALAZIDE DISODIUM 750 MG CAPSULE PO SCH (08:51)
[2020-03-06] MEDS ORDERED: predniSONE 20 MG TAB PO SCH (09:00)
[2020-03-06 10:46] LABS: Erythrocyte Sedimentation Rate 13 mm/hr (0-20)
--- NOTE | 2020-03-06 11:41 | P.PN ---
Subjective Progress Note Date: 03/06/20 Principal diagnosis: Nausea, vomiting, and increased ileostomy output. A 65-year-old pleasant white female with a long standing history of Crohn's disease diagnosed in the . She is status post colectomy with ileostomy performed about 30 years ago. She developed recurrent Crohn's in 2017 that she is on Humira injections every 2 weeks and mesalamine. She presented to the emergency department for concerns with right lower extremity swelling. She has a history of prior DVT about 2 years ago. She also stated that she was started on Diflucan for a yeast infection on her abdomen. She has completed the medication however 5 days ago she started having some nausea and vomiting and increased ileostomy output. Her ileostomy output has decreased and has more consistency. The patient states she is feeling better today. She has some mild nausea however no vomiting. There is no blood in her ileostomy output. Abdominal pain and cramping is better. She is started on oral prednisone. SHe remains afebrile with no acute changes through the night. Objective - Vital Signs Vital signs: Vital Signs Temp 97.6 F 03/06/20 08:47 Pulse 60 03/06/20 08:47 Resp 14 03/06/20 08:47 BP 94/59 03/06/20 08:47 Pulse Ox 97 03/06/20 08:47 Intake & Output 03/05/20 03/06/20 03/06/20 18:59 06:59 18:59 Other: Voiding Method Toilet Toilet Toilet # Voids 1 2 1 # Bowel Movements 1 - Exam General appearance: The patient is alert, oriented, in no acute distress. HET: Head is normocephalic and atraumatic. Conjunctiva pink. Sclera anicteric. Neck: Supple without lymphadenopathy. Abdomen: Soft, nontender, nondistended with bowel sounds. Ileostomy with surrounding erythema and scaling. No guarding or rigidity. Extremities: Normal skin color and turgor. Mild swelling to the dorsal aspect of the right foot. Neurological: No focal deficits. Alert and oriented 3. - Labs CBC & Chem 7: 03/06/20 07:40 03/06/20 07:40 Labs: Abnormal Lab Results - Last 24 Hours (Table) 03/05/20 03/05/20 03/05/20 Range/Units 11:39 16:37 20:57 RBC (3.80-5.40) m/uL MCV (80.0-100.0) fL Neutrophils # (1.3-7.7) k/uL Chloride (98-107) mmol/L Carbon Dioxide (22-30) mmol/L BUN (7-17) mg/dL Creatinine (0.52-1.04) mg/dL POC Glucose (mg/dL) 113 H 141 H 137 H (75-99) mg/dL 03/06/20 03/06/20 Range/Units 07:40 07:40 RBC 3.67 L (3.80-5.40) m/uL MCV 101.2 H (80.0-100.0) fL Neutrophils # 8.2 H (1.3-7.7) k/uL Chloride 115 H (98-107) mmol/L Carbon Dioxide 18 L (22-30) mmol/L BUN 25 H (7-17) mg/dL Creatinine 1.09 H (0.52-1.04) mg/dL POC Glucose (mg/dL) (75-99) mg/dL Assessment and Plan (1) Crohns disease Narrative/Plan: C lady with a long standing history of Crohn's ileitis, status post total proctocolectomy with ileostomy 30 years ago. She is presently maintained on Humira every 2 weeks as well as mesalamine. She presented to the hospital with nausea, vomiting, and diarrhea for last 10 days duration. It is likely that her symptoms could be related to side effects from fluconazole that she was started on about 2 weeks ago. However possibility of exacerbation of Crohn's disease cannot be excluded. The patient was initially started on Solu-Medrol 60 mg every 8 hours and her symptoms are gradually improving. Her Solu-Medrol was decreased to 20 mg every 8 hours with continued improvement in symptoms. 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 She was recently started on a 14 day course of Diflucan. Current Visit: Yes Status: Acute Code(s): L30.9 - DERMATITIS, UNSPECIFIED SNOMED Code(s): 939755832 (3) Hypothyroidism Current Visit: No Status: Acute Code(s): E03.9 - HYPOTHYROIDISM, UNSPECIFIED SNOMED Code(s): 46919778 Plan: 1. Prednisone 40mg daily tapered by 10mg weekly, script sent in. 2. Advance diet as tolerated 3. Monitor labs closely 4. CRP and sedimentation rate 5. Recommended to patient to follow-up with dermatology following discharge for periostomy dermatitis. 6. [place] to follow-up with Yoana Jarvis in 1-2 weeks The impression and plan of care has been dictated as directed. Dr. Anam Rosa I performed a history and examination of this patient, discussed the same with the dictator. I agree with the dictator's note ,documented as a scribe. Any additional findings or plans will be noted.
[2020-03-06 11:58] LABS: Glucose,Whole Blood 101 mg/dL (75-99)
--- NOTE | 2020-03-06 22:53 | DS ---
DISCHARGE SUMMARY DATE OF SERVICE: 03/06/2020 FINAL DIAGNOSES: 1. Acute right foot pain with possible thrombophlebitis, possibly related acute vasculitis secondary to Crohn's. 2. Right foot swelling. 3. Crohn's disease, acute exacerbation. 4. Acute renal failure, possible acute tubular necrosis secondary to prerenal factors. 5. Decreased carbon dioxide. 6. Hyperkalemia secondary to renal failure, present on admission, improved. 7. Hyponatremia. 8. Mild acidosis, metabolic. 9. Hypothyroidism. 10.History of bowel resection. 11.History of ileostomy. 12.History of cholecystectomy. 13.History of hysterectomy. 14.History of thyroidectomy. 15.FULL CODE. DISCHARGE DISPOSITION: The patient will be discharged in stable condition with guarded prognosis. HISTORY OF PRESENT ILLNESS: This 65-year-old woman with a past medical history of multiple medical problems was admitted with right foot pain. Patient was empirically treated with steroids. Patient improved significantly. Patient has also had a significant amount of diarrhea, which is also improved. Gastroenterology saw the patient and care was coordinated. Recommended outpatient followup. On exam, vitals are stable. CARDIOVASCULAR SYSTEM: S1, S2 muffled. ABDOMEN: Soft. NERVOUS SYSTEM: No focal deficit. EXAMINATION OF RIGHT FOOT: Minimal swelling present. DISCHARGE ADVICE AND MEDICATIONS: 1. Diet is cardiac. 2. Activity limited until followup. 3. Follow up with Dr. Nancy Meehan in 1-2 days. 4. Follow up with Gastroenterology as recommended. 5. Advil 400 mg p.r.n. 6. Aspirin p.r.n. 7. Humira as before. 8. Iron sulfate 325 mg p.o. daily. 9. Magnesium 200 mg p.o. daily. 10.Pentasa mg p.o. b.i.d. and 1000 mg daily.as before 11.Synthroid 100 mcg p.o. daily. 12.Vitamin D3 2000 daily. 13.Ecotrin 325 mg p.o. daily. 14.Prednisone: 40 mg daily for 6 days; 30 mg daily for 7 days; 20 mg daily for 7 days; 10 mg daily for 7 days; then stop. 15.Multivitamins 1 p.o. daily. 16.Protonix 40 mg daily. 17.Sodium bicarb 320 mg p.o. b.i.d. for one week. 18.CBC and BMP with Dr. Nancy Meehan. Once again, the patient will be discharged in stable condition with guarded prognosis. MMODL / IJN: [id number] / SERENE
== END 2020-03-06 12:30 | disposition home or self-care (01) ==
LOC: EC 12:37 → 1SOBS 15:02 → OBSVTOIN 03-04 13:16 → INTOOBSV 03-04 13:16 → UNDODISIN 03-06 12:30
PROVIDERS: ADMIT Hospitalist; ATTEND Hospitalist
DX: M79.671 Pain in right foot (principal); M79.661 Pain in right lower leg; M79.89 Other specified soft tissue disorders; K50.80 Crohn's disease of both small and large intestine without complications; N17.9 Acute kidney failure, unspecified; E87.1 Hypo-osmolality and hyponatremia; E87.2 Acidosis; E86.0 Dehydration; E87.5 Hyperkalemia; Z90.49 Acquired absence of other specified parts of digestive tract; E89.0 Postprocedural hypothyroidism; Z79.890 Hormone replacement therapy; Z83.3 Family history of diabetes mellitus; Z79.899 Other long term (current) drug therapy; Z79.1 Long term (current) use of non-steroidal anti-inflammatories (NSAID); Z90.710 Acquired absence of both cervix and uterus; Z20.828 Contact with and (suspected) exposure to other viral communicable diseases; Z86.711 Personal history of pulmonary embolism; Z86.718 Personal history of other venous thrombosis and embolism; M19.90 Unspecified osteoarthritis, unspecified site; Z88.2 Allergy status to sulfonamides; K94.19 Other complications of enterostomy; L30.9 Dermatitis, unspecified
CPT/HCPCS: 96361 ×4; 96372 ×3; 96376 ×3; 96374; 96375; 99285; 36415; 93005; 80053; 80048 ×3; 85652 ×2; 83735 ×2; 84550; 85025 ×4; 85610; 85730; 86140 ×2; 81001; 87324; 71045; 93971; G0378 ×4; U0003; J1644 ×4; J2920 ×2; J2930 ×2; J7512; J1170 ×4

== ENCOUNTER → 2020-04-09 | Outpatient (CLI) | payer OTHER ==
[2020-04-09 13:41] LABS: Basophils # (A) 0.1 k/uL (0-0.2); Basophils % (A) 1 %; Eosinophils % (A) 1 %; HCT 38.3 % (34.0-46.0); HGB 12.3 gm/dL (11.4-16.0); Lymphocytes # (A) 1.3 k/uL (1.0-4.8); Lymphocytes % (A) 23 %; MCH 31.8 pg (25.0-35.0); MCHC 32.2 g/dL (31.0-37.0); MCV 98.6 fL (80.0-100.0); Mean Platelet Volume 7.9; Monocytes # (A) 0.4 k/uL (0-1.0); Monocytes % (A) 7 %; Neutrophils # (A) 3.7 k/uL (1.3-7.7); Neutrophils % (A) 66 %; Platelet Count 107 k/uL (150-450); RBC 3.88 m/uL (3.80-5.40); RDW 14.5 % (11.5-15.5); WBC 5.7 k/uL (3.8-10.6)
[2020-04-09 19:55] LABS: African American GFR (CKD) 61.4 (60.0-200.0); Albumin/Globulin Ratio 1.9 (1.60-3.17); Anion Gap 4.5 mmol/L (4.00-12.00); BUN/Creat Ratio 24.55 Ratio (12.00-20.00); C Reactive Protein 0.4 mg/dL (0.0-0.8); Calcium 9.3 mg/dL (8.7-10.3); Carbon Dioxide 29.5 mmol/L (21.6-31.8); Globulin 2.1 g/dL (1.6-3.3); Potassium 5.2 mmol/L (3.5-5.5); Total Bilirubin 1.5 mg/dL (0.3-1.2); Total Protein 6.1 g/dL (6.2-8.2)
[2020-04-09 20:50] LABS: Erythrocyte Sedimentation Rate 33 mm/Hr (0-30)
== END | disposition home or self-care (01) ==
LOC: LABWHC1 12:26
PROVIDERS: ATTEND Physician Assistant
DX: K50.80 Crohn's disease of both small and large intestine without complications (principal)
CPT/HCPCS: 36415; 80053; 85025; 85652; 86140

== ENCOUNTER → 2020-06-01 | Outpatient (CLI) | payer OTHER ==
[2020-06-02 04:18] LABS: Hepatitis A Antibody IgM Non-Reactive (Non-Reactive); Hepatitis B Core IgM Non-Reactive (Non-Reactive); Hepatitis B Surface Antigen Non-Reactive (Non-Reactive); Hepatitis C IgG Antibody Non-Reactive (Non-Reactive)
== END | disposition home or self-care (01) ==
LOC: LABWHC1 14:37
PROVIDERS: ATTEND Physician Assistant
DX: K50.90 Crohn's disease, unspecified, without complications (principal)
CPT/HCPCS: 36415; 80074; 86480

== ENCOUNTER → 2020-08-13 | Outpatient (CLI) | payer OTHER ==
[2020-08-14 05:40] LABS: Basophils # (A) 0.06 X 10*3/uL (0.00-0.10); Basophils % (A) 0.8 %; Eosinophils # (A) 0.09 X 10*3/uL (0.04-0.35); Eosinophils % (A) 1.2 %; HCT 38.4 % (37.2-46.3); HGB 12.1 g/dL (12.0-15.0); Lymphocytes # (A) 1.46 X 10*3/uL (0.90-5.00); Lymphocytes % (A) 19.6 %; MCH 31.4 pg (27.0-32.0); MCHC 31.5 g/dL (32.0-37.0); MCV 99.7 fL (80.0-97.0); Mean Platelet Volume 10.6 fL (9.5-12.2); Monocytes % (A) 10.7 %; Neutrophils # (A) 4.99 X 10*3/uL (1.80-7.70); Neutrophils % (A) 66.9 %; Platelet Count 197 X 10*3/uL (140-440); RBC 3.85 X 10*6/uL (4.10-5.20); RDW 13.1 % (11.5-14.5); WBC 7.46 X 10*3/uL (4.50-10.00)
[2020-08-14 05:42] LABS: Erythrocyte Sedimentation Rate 35 mm/Hr (0-30)
[2020-08-14 05:47] LABS: African American GFR (CKD) 61.4 (60.0-200.0); Albumin 4.2 g/dL (3.80-4.90); Albumin/Globulin Ratio 1.68 (1.60-3.17); BUN/Creat Ratio 22.73 Ratio (12.00-20.00); C Reactive Protein 0.4 mg/dL (0.0-0.8); Calcium 9.5 mg/dL (8.7-10.3); Globulin 2.5 g/dL (1.6-3.3); Potassium 4.1 mmol/L (3.5-5.5); Total Bilirubin 1.8 mg/dL (0.3-1.2); Total Protein 6.7 g/dL (6.2-8.2)
== END | disposition home or self-care (01) ==
LOC: LABWHC1 15:53
PROVIDERS: ATTEND Physician Assistant
DX: K50.80 Crohn's disease of both small and large intestine without complications (principal)
CPT/HCPCS: 36415; 80053; 85025; 85652; 86140

== ENCOUNTER 2020-11-25 | Emergency (ER) | payer OTHER | END 2020-11-25 21:35 | disposition home or self-care (01) | CPT/HCPCS: 36415; 74018; 74177; 80053; 81001; 82150; 82550; 83605; 83690; 84484; 85025; 96361; 96374; 96375; 99284 ==

== ENCOUNTER 2021-02-07 20:15 | Emergency (ER) | payer MEDICARE, OTHER ==
[2021-02-07 20:38] VITALS: TEMP 98
--- NOTE | 2021-02-07 21:32 | ED ---
General Adult HPI - General Chief complaint: Neuro Symptoms/Deficit Stated complaint: headache, L facial drooping Time Seen by Provider: 02/07/21 20:55 Source: patient Mode of arrival: ambulatory Limitations: no limitations - History of Present Illness Initial comments: This patient is a 65-year-old woman who presents with complaint that she has noticed some facial droop, her right eye is burning, and the right side of her face feels funny. She states that she noticed a little bit of something going on last night but things were more pronounced this morning when she brushed her teeth. She states that she noticed she was not able to see the teeth in the right side. She seemed to be leaking water from the right side of her mouth when she was drinking. She states her eye was burning and irritated this morning. Onset/Timin -: days(s) Location: face Consistency: constant Improves with: none Worsens with: none Associated Symptoms: denies other symptoms Treatments Prior to Arrival: none - Related Data Home Medications Medication Instructions Recorded Confirmed Levothyroxine Sodium [Synthroid] 100 mcg PO MOTUWETHFRSA@0700 06/27/15 02/07/21 Cholecalciferol [Vitamin D3 (25 50 mcg PO PC-LUNCH@1430 05/20/18 02/07/21 Mcg = 1000 Iu)] Ferrous Sulfate [Iron (65 MG 325 mg PO PC-LUNCH@1430 05/20/18 02/07/21 Elemental)] Mesalamine [Pentasa] 1,000 mg PO PC-LUNCH@1430 09/04/18 02/07/21 Mesalamine [Pentasa] 1,500 mg PO BID@0700,2100 09/04/18 02/07/21 Albuterol Sulfate [Proair Hfa] 2 puff INHALATION RT-QID PRN 11/25/20 02/07/21 Zinc 50 mg PO PC-LUNCH@1430 11/25/20 02/07/21 Betamethasone Dipropionate 1 applic TOPICAL Q48H 02/07/21 02/07/21 [Diprolene AF 0.05% Cream] Ondansetron Odt [Zofran Odt] 4 - 8 mg PO Q8H PRN 02/07/21 02/07/21 Previous Rx's Medication Instructions Recorded predniSONE 60 mg PO DAILY #30 tab 02/07/21 Allergies Allergy/AdvReac Type Severity Reaction Status Date / Time No Known Allergies Allergy Verified 02/07/21 22:18 Review of Systems ROS Statement: Those systems with pertinent positive or pertinent negative responses have been documented in the HPI. ROS Other: All systems not noted in ROS Statement are negative. Constitutional: Denies: fever, chills Eyes: Denies: vision change ENT: Denies: ear pain, hearing loss Respiratory: Denies: cough, dyspnea Cardiovascular: Denies: chest pain, palpitations, edema Gastrointestinal: Denies: abdominal pain, vomiting, diarrhea Genitourinary: Denies: dysuria, hematuria Musculoskeletal: Denies: back pain Skin: Denies: rash Neurological: Reports: weakness, numbness. Denies: headache, confusion Past Medical History Past Medical History: Deep Vein Thrombosis (DVT), Pulmonary Embolus (PE), Thyroid Disorder Additional Past Medical History / Comment(s): crohns History of Any Multi-Drug Resistant Organisms: None Reported Past Surgical History: Bowel Resection, Cholecystectomy, Hysterectomy Additional Past Surgical History / Comment(s): ileostomy, thyroidectomy Past Anesthesia/Blood Transfusion Reactions: No Reported Reaction Past Psychological History: No Psychological Hx Reported Smoking Status: Never smoker Past Alcohol Use History: Rare Past Drug Use History: None Reported - Past Family History Daughter(s) Family Medical History: Diabetes Mellitus General Exam General appearance: alert, in no apparent distress Head exam: Present: atraumatic, normocephalic Eye exam: Present: normal appearance, PERRL, EOMI. Absent: scleral icterus, conjunctival injection, periorbital swelling, periorbital tenderness ENT exam: Present: normal oropharynx, mucous membranes moist Neck exam: Present: normal inspection, full ROM. Absent: tenderness, meningism us Respiratory exam: Present: normal lung sounds bilaterally. Absent: respiratory distress, wheezes, rales, rhonchi, stridor Cardiovascular Exam: Present: regular rate, normal rhythm, normal heart sounds. Absent: systolic murmur, diastolic murmur, rubs, gallop GI/Abdominal exam: Present: soft. Absent: distended, tenderness, guarding, rebound, rigid, mass Extremities exam: Present: normal inspection, normal capillary refill. Absent: pedal edema, calf tenderness Back exam: Present: normal inspection. Absent: CVA tenderness (R), CVA tenderness (L) Neurological exam: Present: alert, oriented X3. Absent: motor sensory deficit Expanded Neurological exam: Present: protecting the airway. Absent: memory loss-remote event, memory loss-recent event, ataxia, receptive aphasia, expressive aphasia, total aphasia, tremor Speech: Present: fluid speech Cranial nerves: EOM's Intact: Normal, Facial Palsy without Forehead Movement: Abnormal Right Cerebellar function: Finger to Nose: Normal Sensory exam: Upper Extremity Light Touch: Normal, Lower Extremity Light Touch: Normal Motor strength exam: RUE: 5, LUE: 5, RLE: 5, LLE: 5 Eye Response: (4) open spontaneously Motor Response: (6) obeys commands Verbal Response: (5) oriented Skin exam: Present: warm, dry, intact, normal color. Absent: rash Course Vital Signs 02/07/21 02/07/21 02/07/21 20:33 22:00 23:22 Temperature 98 F Pulse Rate 75 71 67 Respiratory 19 20 20 Rate Blood Pressure 104/71 112/73 110/72 O2 Sat by Pulse 97 100 95 Oximetry EKG Findings - EKG Comments: EKG Findings:: Patient has T inversions in V1 through 3 which were present previously however they appear to be slightly more noticeable now. - EKG Results: EKG: interpreted by JORGE, sinus rhythm (Rate 69 bpm), normal axis, normal QRS Medical Decision Making - Lab Data Result diagrams: 02/07/21 21:08 02/07/21 21:08 Lab Results 02/07/21 02/07/21 02/07/21 Range/Units 21:08 21:08 21:08 WBC 9.4 (3.8-10.6) k/uL RBC 3.91 (3.80-5.40) m/uL Hgb 12.7 (11.4-16.0) gm/dL Hct 38.1 (34.0-46.0) % MCV 97.5 (80.0-100.0) fL MCH 32.6 (25.0-35.0) pg MCHC 33.4 (31.0-37.0) g/dL RDW 12.7 (11.5-15.5) % Plt Count 277 (150-450) k/uL MPV 7.5 Neutrophils % 71 % Lymphocytes % 15 % Monocytes % 6 % Eosinophils % 6 % Basophils % 1 % Neutrophils # 6.6 (1.3-7.7) k/uL Lymphocytes # 1.4 (1.0-4.8) k/uL Monocytes # 0.6 (0-1.0) k/uL Eosinophils # 0.5 (0-0.7) k/uL Basophils # 0.1 (0-0.2) k/uL PT 9.7 (9.0-12.0) sec INR 0.9 (<1.2) APTT 20.9 L (22.0-30.0) sec Sodium 135 L (137-145) mmol/L Potassium 4.2 (3.5-5.1) mmol/L Chloride 108 H (98-107) mmol/L Carbon Dioxide 17 L (22-30) mmol/L Anion Gap 10 mmol/L BUN 31 H (7-17) mg/dL Creatinine 1.06 H (0.52-1.04) mg/dL Est GFR (CKD-EPI)AfAm 64 (>60 ml/min/1.73 sqM) Est GFR (CKD-EPI)NonAf 56 (>60 ml/min/1.73 sqM) Glucose 118 H (74-99) mg/dL Calcium 9.1 (8.4-10.2) mg/dL Total Bilirubin 0.7 (0.2-1.3) mg/dL AST 24 (14-36) U/L ALT 15 (4-34) U/L Alkaline Phosphatase 69 (38-126) U/L Troponin I (0.000-0.034) ng/mL Total Protein 6.6 (6.3-8.2) g/dL Albumin 3.3 L (3.5-5.0) g/dL 02/07/21 Range/Units 21:08 WBC (3.8-10.6) k/uL RBC (3.80-5.40) m/uL Hgb (11.4-16.0) gm/dL Hct (34.0-46.0) % MCV (80.0-100.0) fL MCH (25.0-35.0) pg MCHC (31.0-37.0) g/dL RDW (11.5-15.5) % Plt Count (150-450) k/uL MPV Neutrophils % % Lymphocytes % % Monocytes % % Eosinophils % % Basophils % % Neutrophils # (1.3-7.7) k/uL Lymphocytes # (1.0-4.8) k/uL Monocytes # (0-1.0) k/uL Eosinophils # (0-0.7) k/uL Basophils # (0-0.2) k/uL PT (9.0-12.0) sec INR (<1.2) APTT (22.0-30.0) sec Sodium (137-145) mmol/L Potassium (3.5-5.1) mmol/L Chloride (98-107) mmol/L Carbon Dioxide (22-30) mmol/L Anion Gap mmol/L BUN (7-17) mg/dL Creatinine (0.52-1.04) mg/dL Est GFR (CKD-EPI)AfAm (>60 ml/min/1.73 sqM) Est GFR (CKD-EPI)NonAf (>60 ml/min/1.73 sqM) Glucose (74-99) mg/dL Calcium (8.4-10.2) mg/dL Total Bilirubin (0.2-1.3) mg/dL AST (14-36) U/L ALT (4-34) U/L Alkaline Phosphatase (38-126) U/L Troponin I <0.012 (0.000-0.034) ng/mL Total Protein (6.3-8.2) g/dL Albumin (3.5-5.0) g/dL Disposition Clinical Impression: Roy's palsy Disposition: HOME SELF-CARE Condition: Good Instructions (If sedation given, give patient instructions): Roy Palsy (ED) Additional Instructions: As discussed, use artificial tears or what petroleum to lubricate the eye for sleep. Follow-up with your physician to have any further testing Prescriptions: predniSONE 60 mg PO DAILY #30 tab Is patient prescribed a controlled substance at d/c from ED?: No Referrals: Nancy Meehan MD [Primary Care Provider] - 1-2 days
[2021-02-07 21:36] LABS: Basophils # (A) 0.1 k/uL (0-0.2); Basophils % (A) 1 %; Eosinophils # (A) 0.5 k/uL (0-0.7); Eosinophils % (A) 6 %; HCT 38.1 % (34.0-46.0); HGB 12.7 gm/dL (11.4-16.0); Lymphocytes # (A) 1.4 k/uL (1.0-4.8); Lymphocytes % (A) 15 %; MCH 32.6 pg (25.0-35.0); MCHC 33.4 g/dL (31.0-37.0); MCV 97.5 fL (80.0-100.0); Mean Platelet Volume 7.5; Monocytes # (A) 0.6 k/uL (0-1.0); Monocytes % (A) 6 %; Neutrophils # (A) 6.6 k/uL (1.3-7.7); Neutrophils % (A) 71 %; Platelet Count 277 k/uL (150-450); RBC 3.91 m/uL (3.80-5.40); RDW 12.7 % (11.5-15.5); WBC 9.4 k/uL (3.8-10.6)
[2021-02-07 21:50] LABS: INR 0.9 (<1.2); Prothrombin Time 9.7 sec (9.0-12.0)
[2021-02-07 22:08] LABS: Albumin 3.3 g/dL (3.5-5.0); Calcium 9.1 mg/dL (8.4-10.2); Potassium 4.2 mmol/L (3.5-5.1); Total Bilirubin 0.7 mg/dL (0.2-1.3); Total Protein 6.6 g/dL (6.3-8.2)
[2021-02-07 22:10] VITALS: RESP 20
[2021-02-07 22:12] LABS: Partial Thromboplastin Time 20.9 sec (22.0-30.0)
--- NOTE | 2021-02-07 22:24 | CT ---
EXAMINATION TYPE: CT brain wo con DATE OF EXAM: 02/07/2021 COMPARISON: None HISTORY: headache CT DLP: 1080.4 mGycm Automated exposure control for dose reduction was used. Ventricles have normal size. There is no mass effect nor midline shift. There is no sign of intracran ial hemorrhage. Calvarium is intact. There is no evidence of cerebral edema. Skull base is intact. Th ere is normal aeration of the mastoid sinuses. IMPRESSION: Negative unenhanced head CT scan.
--- NOTE | 2021-02-07 22:26 | XR ---
EXAMINATION TYPE: XR chest 2V DATE OF EXAM: 02/07/2021 COMPARISON: 03/03/2020 HISTORY: Altered mental status. Facial droop. TECHNIQUE: 2 views FINDINGS: There is no heart failure nor confluent pneumonic infiltrate. Costophrenic angles are clear . There are no hilar masses. There are chest leads. IMPRESSION: No active cardiac pulmonary disease. Minimal pleural scarring noted at the right lung ape x. No change.
[2021-02-07 23:23] VITALS: BP 110/72; PULSE 67
[2021-02-07] MEDS ORDERED: predniSONE 20 MG TAB PO STA (23:31)
== END 2021-02-07 23:46 | disposition home or self-care (01) ==
LOC: EC 20:15
DX: G51.0 Bell's palsy (principal); K50.90 Crohn's disease, unspecified, without complications; Z86.711 Personal history of pulmonary embolism; Z86.718 Personal history of other venous thrombosis and embolism; Z79.52 Long term (current) use of systemic steroids; Z79.899 Other long term (current) drug therapy; Z90.49 Acquired absence of other specified parts of digestive tract
CPT/HCPCS: 36415; 93005; 80053; 84484; 85025; 85610; 85730; 71046; 70450; 99285; J7512

== ENCOUNTER → 2021-05-05 | Outpatient (CLI) | payer MEDICARE ==
[2021-05-05 15:36] LABS: Basophils # (A) 0.1 k/uL (0-0.2); Basophils % (A) 1 %; Eosinophils # (A) 0.1 k/uL (0-0.7); Eosinophils % (A) 1 %; HCT 36.7 % (34.0-46.0); HGB 12.3 gm/dL (11.4-16.0); Lymphocytes # (A) 1.2 k/uL (1.0-4.8); Lymphocytes % (A) 16 %; MCH 34.1 pg (25.0-35.0); MCHC 33.6 g/dL (31.0-37.0); MCV 101.6 fL (80.0-100.0); Macrocytosis Slight; Mean Platelet Volume 7.1; Monocytes # (A) 0.4 k/uL (0-1.0); Monocytes % (A) 6 %; Neutrophils # (A) 5.9 k/uL (1.3-7.7); Neutrophils % (A) 75 %; Platelet Count 219 k/uL (150-450); RBC 3.61 m/uL (3.80-5.40); RDW 13.8 % (11.5-15.5); WBC 7.8 k/uL (3.8-10.6)
[2021-05-05 15:52] LABS: ALT 18 U/L (4-34); AST 25 U/L (14-36); African American GFR (CKD) 59 (>60 ml/min/1.73 sqM); Albumin 3.6 g/dL (3.5-5.0); Alkaline Phosphatase 57 U/L (38-126); Anion Gap 7 mmol/L; Blood Urea Nitrogen 24 mg/dL (7-17); C Reactive Protein <0.5 mg/dL (<1.0); Carbon Dioxide 27 mmol/L (22-30); Chloride 102 mmol/L (98-107); Glucose 93 mg/dL (74-99); Non-African American GFR(CKD) 51 (>60 ml/min/1.73 sqM); Potassium 3.9 mmol/L (3.5-5.1); Sodium 136 mmol/L (137-145); Total Bilirubin 1.3 mg/dL (0.2-1.3); Total Protein 6.7 g/dL (6.3-8.2)
[2021-05-05 16:34] LABS: Erythrocyte Sedimentation Rate 24 mm/hr (0-20)
--- NOTE | 2021-05-06 08:53 | CT ---
EXAMINATION TYPE: CT abdomen pelvis w con DATE OF EXAM: 05/05/2021 HISTORY: Unspecified abdominal pain. PT states stabbing pain by ostomy. Possible hernia. CT DLP: 571.70mGycm Automated Exposure Control for Dose Reduction was Utilized. CONTRAST: CT scan of the abdomen and pelvis is performed with IV Contrast, patient injected with 80 mL of Isovu e 300. COMPARISON: CT abdomen and pelvis November 25, 2020 and older studies FINDINGS: LUNG BASES: Mild left basilar linear scarring redemonstrated. LIVER/GB: Cholecystectomy clips redemonstrated. PANCREAS: No significant abnormality is seen. SPLEEN: No significant abnormality is seen. ADRENALS: No significant abnormality is seen. KIDNEYS: Symmetric cortical medullary uptake and excretion without hydronephrosis seen bilaterally. T here is 2.0 cm thin-walled cyst lower pole of the left kidney axial image 32 redemonstrated. Areas of cortical thinning in both kidneys redemonstrated. BOWEL: Surgical changes presacral space with remnant rectal polyps redemonstrated. The oral contrast reaches level of right sided ostomy. There is no suspicion of small or large bowel dilatation. Surgic al clips at site of ostomy again seen. No new parastomal hernia UTERUS/ADNEXA: Uterus surgically absent. LYMPH NODES: No greater than 1cm abdominal or pelvic lymph nodes are appreciated. OSSEOUS STRUCTURES: Moderate disc space narrowing with vacuum disc phenomenon L4-L5 and L5-S1 levels. Moderate axial joint space loss in both hips. Pbuq-cr-ixbmsubs multilevel spurring in the lower thor acic spine. Consistent arthropathy lower lumbar levels. OTHER: There are vertical subcutaneous ronn in the midline of the anterior abdomen and pelvis rede monstrated. IMPRESSION: No bowel obstruction. No suspicious acute findings seen to account for patient's symptoms of stabbing pain near site of right-sided ostomy.
== END | disposition home or self-care (01) ==
LOC: RADCTMAIN 14:43
PROVIDERS: ATTEND Internal Medicine Gastroenterology
DX: R10.9 Unspecified abdominal pain (principal)
CPT/HCPCS: 80053; 85652; 82565; 84520; 85025; 86140; 74177; 36415; Q9967

== ENCOUNTER → 2022-08-16 | Outpatient (CLI) | payer MEDICARE ==
[2022-08-16 18:46] LABS: % Iron Saturation 11.96 (12.00-45.00); BUN/Creat Ratio 16.75 Ratio (12.00-20.00); Blood Urea Nitrogen 19.1 mg/dL (9.0-27.0); Calcium 9.2 mg/dL (8.7-10.3); Carbon Dioxide 28.2 mmol/L (20.0-27.5); Non-African American GFR(CKD) 50.1 (60.0-200.0); Potassium 4.3 mmol/L (3.5-5.5)
[2022-08-18 07:12] LABS: Methylmalonic Acid 0.21 umol/L (<0.40)
== END | disposition home or self-care (01) ==
LOC: LABWHC1 11:47
PROVIDERS: ATTEND Internal Medicine Hematology & Oncology
DX: D51.9 Vitamin B12 deficiency anemia, unspecified (principal)
CPT/HCPCS: 36415; 80048; 82607; 82747; 83540; 83550; 83921

== ENCOUNTER → 2022-10-03 | Outpatient (CLI) | payer MEDICARE ==
[2022-10-04 02:45] LABS: % Iron Saturation 15.22 (12.00-45.00); African American GFR (CKD) 51.4 (60.0-200.0); Anion Gap 11.6 mmol/L (10.00-18.00); BUN/Creat Ratio 21.67 Ratio (12.00-20.00); Blood Urea Nitrogen 27.3 mg/dL (9.0-27.0); Calcium 9.5 mg/dL (8.7-10.3); Carbon Dioxide 22.7 mmol/L (20.0-27.5); Non-African American GFR(CKD) 44.4 (60.0-200.0); Potassium 3.9 mmol/L (3.5-5.5)
[2022-10-04 02:47] LABS: Basophils # (A) 0.08 X 10*3/uL (0.00-0.10); Eosinophils # (A) 0.11 X 10*3/uL (0.04-0.35); Eosinophils % (A) 1.4 %; HGB 11.4 g/dL (12.0-15.0); Immature Grans, Automated 0.8 %; Lymphocytes # (A) 1.41 X 10*3/uL (0.90-5.00); Lymphocytes % (A) 18.1 %; MCH 31.1 pg (27.0-32.0); MCV 103.5 fL (80.0-97.0); Mean Platelet Volume 10.3 fL (9.5-12.2); Monocytes # (A) 0.78 X 10*3/uL (0.20-1.00); NRBC Per 100 WBC 0 /100 WBCS (0.0-0.0); Neutrophils # (A) 5.34 X 10*3/uL (1.80-7.70); Neutrophils % (A) 68.7 %; Platelet Count 250 X 10*3/uL (140-440); RBC 3.67 X 10*6/uL (4.10-5.20); RDW 14.1 % (11.5-14.5); WBC 7.78 X 10*3/uL (4.50-10.00)
[2022-10-04 05:28] LABS: Erythrocyte Sedimentation Rate 41 mm/Hr (0-30)
== END | disposition home or self-care (01) ==
LOC: LABWHC1 15:17
PROVIDERS: ATTEND Internal Medicine Hematology & Oncology
DX: I82.529 Chronic embolism and thrombosis of unspecified iliac vein (principal); I26.99 Other pulmonary embolism without acute cor pulmonale; D51.9 Vitamin B12 deficiency anemia, unspecified; D68.69 Other thrombophilia
CPT/HCPCS: 36415; 80048; 82607; 82728; 83540; 83550; 85025; 85652

== ENCOUNTER → 2022-11-30 | Outpatient (CLI) | payer MEDICARE ==
--- NOTE | 2022-11-30 12:16 | CA ---
Stress Echo Report Karen Kelly Age: 67 Gender: F : 1955 Exam Date: 11/30/2022 10:46 Exam Location: [facility] Stress Ht (in): 61 Wt (lb): 146 Ordering Physician: Daniel Perez MD Referring Physician: Katy Rosa MD Stain Remover: Sourav Bauer Technologist Procedure CPT: Indication: R06.00 Dyspnea ICD-9 Codes: Rhythm: Patient History: Cardiac Medications: Medications in past 24 hours: Contrast: Stress Results Protocol: Yehuda Total dose(mL): Exercise Duration (min:sec): 6:[address] Depression (mm): Angina Score: Sanchez Score: METS: 7.1 Resting HR: 96 Resting BP: 116 / 70 Peak HR: 156 Peak BP: 145 / 70 Max Predicted HR: 154 101 % Max Predicted HR Target HR: 131 Double Product: [id number] Stress Summary: BP Response: Reason for Termination: Reached target heart rate or work-load Cardiac Symptoms: CHEST PRESSURE X2 ECG Analysis Resting ECG: Normal sinus rhythm normal axis normal intervals Stress ECG: Patient exercised on Yehuda protocol for 6 minutes achieving 85% of predicted maximal heart rate without chest pain or diagnostic ST segment depression Arrhythmia: Echo Analysis Resting Echo: Normal left ventricle a size wall motion systolic function Peak Echo Analysis: Normal hyperdynamic response was of myocardium noted MEASUREMENTS (Male/Female) Normal Values CONCLUSIONS Average exercise tolerance Negative stress test by EKG criteria Negative stress echo Dr. Artur Rosa MD (Electronically Signed) Final Date: 30 November 2022 12:16
== END | disposition home or self-care (01) ==
LOC: RADNMMAIN 09:58
PROVIDERS: ATTEND Family Medicine
DX: R06.00 Dyspnea, unspecified (principal)
CPT/HCPCS: 93351

== ENCOUNTER → 2023-10-04 | Outpatient (CLI) | payer MEDICARE ==
--- NOTE | 2023-10-05 10:40 | MM ---
Reason for Exam: Screening (asymptomatic). Last mammogram was performed 1 year(s) and 9 month(s) ago. Patient History: Menarche at age 14. First Full-Term at age 18. Hysterectomy at age 39. Postmenopausal. Patient used Unspecified Hormone for 2 years. Risk Values: Shikha 5 year model risk: 1.2%. NCI Lifetime model risk: 4.2%. Prior Study Comparison: 03/22/2019 Bilateral Screening Mammogram, Unknown. 10/12/2020 Bilateral Screening Mammogram, Unknown. 01/11/2022 Bilateral Screening Mammogram, Unknown. Tissue Density: The breasts are heterogeneously dense, which may obscure small masses. Findings: Analyzed By CAD. Right breast: There is no suspicious group of microcalcifications or new suspicious mass. Left breast: There is no suspicious group of microcalcifications or new suspicious mass. Overall Assessment: Negative, BI-RAD 1 Management: Screening Mammogram of both breasts in [address] [facility] will attempt to contact patient to return for supplemental views and ultrasound if indicated. Patient should continue monthly self-breast exams. A clinical breast exam by your physician is recommended on an annual basis. This exam should not preclude additional follow-up of suspicious palpable abnormalities. Note on Shikha scores and lifetime risk: 1. A Shikha score greater than 3% is considered moderate risk. If this is the case, consider specialist referral to assess eligibility for a risk reducing agent. 2. If overall lifetime risk for the development of breast cancer is 20% or higher, the patient may qualify for future screening with alternating mammogram and breast MRI. Electronically signed and approved by: Paulino Dietz DO
== END | disposition home or self-care (01) ==
LOC: RADMAMWWP 12:57
PROVIDERS: ATTEND Family Medicine
DX: Z12.31 Encounter for screening mammogram for malignant neoplasm of breast (principal); Z78.0 Asymptomatic menopausal state
CPT/HCPCS: 77067

== ENCOUNTER → 2024-01-03 | Outpatient (CLI) | payer MEDICARE ==
--- NOTE | 2024-02-04 12:21 | US ---
Site ID [facility] Karen White ID [id number] Age/Gender: 68Y, O Order # N/A Procedure US carotid duplex BILAT Date 01/03/2024 1:15:00 PM EXAMINATION TYPE: US carotid duplex BILAT DATE OF EXAM: 01/14/2024 COMPARISON: None, please note PACS Production downtime occurred during the radiologist interpretation of these images with limited priors/reports. CLINICAL INDICATION: 68 year old with history of stenosis. TECHNIQUE: Carotid duplex ultrasound examination. Indirect Doppler criteria was utilized. FINDINGS: EXAM MEASUREMENTS: RIGHT: Peak Systolic Velocity (PSV) cm/sec ----- Right CCA: 80.1 ----- Right ICA: 88.9 ----- Right ECA: 104.7 ICA/CCA ratio: 1.1 RIGHT: End Diastole cm/sec ----- Right CCA: 27.4 ----- Right ICA: 31.8 ----- Right ECA: 18.0 LEFT: Peak Systolic Velocity (PSV) cm/sec ----- Left CCA: 73.5 ----- Left ICA: 91.8 ----- Left ECA: 94.3 ICA/CCA ratio: 1.2 LEFT: End Diastole cm/sec ----- Left CCA: 26.3 ----- Left ICA: 43.9 ----- Left ECA: 16.7 VERTEBRALS (direction of flow): Right Vertebral: Antegrade Left Vertebral: Antegrade ORDER DETAILER NOTES: No evidence of significant stenosis bilaterally. IMPRESSION: No ultrasound evidence for hemodynamically significant stenosis of the bilateral visualized carotid a rterial systems. Criteria for Assigning % of Stenosis / Diameter reduction (Estimation based on the indirect measurements of the internal carotid artery velocities (ICA PSV). 1. Normal (no stenosis)=ICA PSV < 125 cm/s: ratio < 2.0: ICA EDV<40 cm/s. 2. Less than 50% stenosis=ICA PSV < 125 cm/s: ratio < 2.0: ICA EDV<40 cm/s. 3. 50 to 69% stenosis=ICA PSV of 125 to 230 cm/s: ration 2.0 ? 4.0: ICA EDV 40-100 cm/s. 4. Greater than 70% stenosis to near occlusion= ICA PSV > 230 cm/s: ratio > 4.0: ICA EDV > 100 cm/s. 5. Near occlusion= ICA PSV velocities may be low or undetectable: variable ratio and ICA EDV. 6. Total occlusion=unable to detect flow.
== END | disposition home or self-care (01) ==
LOC: RADUSWWP 12:00
PROVIDERS: ATTEND Ophthalmology
DX: H43.812 Vitreous degeneration, left eye (principal)
CPT/HCPCS: 93880

== ENCOUNTER 2024-02-02 16:28 | Inpatient (IN) | payer MEDICARE ==
--- NOTE | 2024-02-02 16:59 | ED ---
Chest Pain HPI - General Source: patient, RN notes reviewed <Shannon Zuniga - Last Filed: 02/02/24 16:57> <Octavio Funes - Last Filed: 02/02/24 18:23> - General Stated Complaint: low hemaglobin Time Seen by Provider: 02/02/24 16:40 - History of Present Illness Initial Comments: Quick [id number]-old female presents emergency department chief complaint of low hemoglobin. Patient states that she is also been experiencing heart palpitations dizziness lightheadedness. Patient is on Xarelto for history of blood clots. Denies personal history of MD or CVA. (Shannon Zuniga) This is a 68-year-old female who presents to the emergency department the past medical history significant for Crohn's and blood clots. Patient is on Xarelto. Patient states when she first went on Xarelto she had a lot of GI bleeding but that has stopped. Patient has noticed though lately she has been having some chest pressure and shortness of breath particularly with exertion and also feeling like she might pass out particularly when she is in the shower. Patient states she was having her heart looked at when they did blood work and they told her her hemoglobin was in the sixes. Patient denies any black or bloody stools. Patient has abdominal pain. Patient denies any chest pain at this time. Patient states just getting up and walking to the bathroom in the emergency department cause her to be short of breath. (Octavio Funes) - Related Data Home Medications Medication Instructions Recorded Confirmed Levothyroxine Sodium [Synthroid] 100 mcg PO MOTUWETHFRSA@0700 06/27/15 07/01/22 Cholecalciferol [Vitamin D3 (25 50 mcg PO PC-LUNCH@1430 05/20/18 07/01/22 Mcg = 1000 Iu)] Ferrous Sulfate [Iron (65 MG 325 mg PO PC-LUNCH@1430 05/20/18 07/01/22 Elemental)] Mesalamine [Pentasa] 1,000 mg PO PC-LUNCH@1430 09/04/18 07/01/22 Mesalamine [Pentasa] 1,500 mg PO BID@0700,2100 09/04/18 07/01/22 Albuterol Sulfate [Proair Hfa] 2 puff INHALATION RT-QID PRN 11/25/20 07/01/22 Zinc 50 mg PO PC-LUNCH@1430 11/25/20 07/01/22 Acetylcysteine [Nac] 500 mg PO DAILY 06/27/22 07/01/22 Ascorbic Acid [Vitamin C] 1,000 mg PO DAILY 06/27/22 07/01/22 Calcium(Unk Dose) 2 cap PO DAILY 06/27/22 07/01/22 Budesonide [Entocort EC] 3 mg PO TID 07/01/22 07/01/22 Previous Rx's Medication Instructions Recorded Apixaban [Eliquis Starter Pack 5 - 10 mg PO DIRECTED 30 Days 07/06/22 (for VTE)] #1 each Cyanocobalamin [Vitamin B-12 1,000 mcg IM DAILY #30 each 07/06/22 Injection] Folic Acid 1 mg PO DAILY #30 tab 07/06/22 Allergies Allergy/AdvReac Type Severity Reaction Status Date / Time No Known Allergies Allergy Verified 07/01/22 18:00 Review of Systems ROS Other: All systems not noted in ROS Statement are negative. <Shannon Zuniga - Last Filed: 02/02/24 16:57> ROS Other: All systems not noted in ROS Statement are negative. <Octavio Funes - Last Filed: 02/02/24 18:23> ROS Statement: Those systems with pertinent positive or pertinent negative responses have been documented in the HPI. Past Medical History Past Medical History: Deep Vein Thrombosis (DVT), Pulmonary Embolus (PE), Thyroid Disorder Additional Past Medical History / Comment(s): bleeding with stools, crohns History of Any Multi-Drug Resistant Organisms: None Reported Past Surgical History: Bowel Resection, Cholecystectomy, Hysterectomy Additional Past Surgical History / Comment(s): ileostomy, thyroidectomy Past Anesthesia/Blood Transfusion Reactions: No Reported Reaction Additional Past Anesthesia/Blood Transfusion Reaction / Comment(s): no problems w/ prior blood transfusion Past Psychological History: No Psychological Hx Reported Smoking Status: Former smoker Past Alcohol Use History: None Reported Additional Past Alcohol Use History / Comment(s): quit smoking ,started smoking at age 17 Past Drug Use History: None Reported - Past Family History Daughter(s) Family Medical History: Diabetes Mellitus <Shannon Zuniga - Last Filed: 02/02/24 16:57> General Exam <Shannon Zuniga - Last Filed: 02/02/24 16:57> <Octavio Funes - Last Filed: 02/02/24 18:23> - General Exam Comments Initial Comments: Visual Physical Exam Vital signs reviewed General: Well-appearing, nontoxic, no acute distress. Head: Normocephalic, atraumatic Eyes: PERRLA, EOMI ENT: Airway patent Chest: Nonlabored breathing Skin: No visual rash, normal skin tone Neuro: Alert and oriented 3 Musculoskeletal: No gross abnormalities (Shannon Zuniga) GENERAL: Patient is well-developed and well-nourished. Patient is nontoxic and well- hydrated and is in mild distress. ENT: Neck is soft and supple. No significant lymphadenopathy is noted. Oropharynx is clear. Moist mucous membranes. Neck has full range of motion without eliciting any pain. EYES: The sclera were anicteric and conjunctiva were pink and moist. Extraocular movements were intact and pupils were equal round and reactive to light. Eyelids were unremarkable. PULMONARY: Unlabored respirations. Good breath sounds bilaterally. No audible rales rhonchi or wheezing was noted. CARDIOVASCULAR: There is a regular rate and rhythm without any murmurs gallops or rubs. ABDOMEN: Soft and nontender with normal bowel sounds. No palpable organomegaly was noted. There is no palpable pulsatile mass. SKIN: Skin is clear with no lesions or rashes and otherwise unremarkable. NEUROLOGIC: Patient is alert and oriented x3. Cranial nerves II through XII are grossly in tact. Motor and sensory are also intact. Normal speech, volume and content. Symmetrical smile. MUSCULOSKELETAL: Normal extremities with adequate strength and full range of motion. No lower extremity swelling or edema. No calf tenderness. LYMPHATICS: No significant lymphadenopathy is noted PSYCHIATRIC: Normal psychiatric evaluation. (Octavio Funes) Course Vital Signs 02/02/24 17:04 Temperature 97.8 F Pulse Rate 83 Respiratory 16 Rate Blood Pressure 128/65 O2 Sat by Pulse 100 Oximetry Chest Pain MDM <Shannon Zuniga - Last Filed: 02/02/24 16:57> <Octavio Funes - Last Filed: 02/02/24 18:23> - [facility] I completed the quick note portion of this chart signed Shannon Zuniga PA-C (Shannon Zuniga) Was pt. sent in by a medical professional or institution (CORAL Reddy, UNHAIRING MACHINE OPERATOR, urgent care, hospital, or senior care...) When possible be specific @ -Primary medical care doctor sent him to the emergency department Did you speak to anyone other than the patient for history (EMS, parent, family, police, friend...)? What history was obtained from this source @ -No Did you review nursing and triage notes (agree or disagree)? Why? @ -I reviewed and agree with nursing and triage notes Were old charts reviewed (outside hosp., previous admission, EMS record, old EKG, old radiological studies, urgent care reports/EKG's, senior care records)? Report findings @ -No old charts were reviewed Differential Diagnosis? @ -Differential Dyspnea: Coronary syndrome, arrhythmia, tamponade, asthma, COPD, pulmonary embolism, pneumonia, pneumothorax, pulmonary effusion, anaphylaxis, diabetic ketoacidosis, flailed chest, pulmonary contusion, diaphragmatic rupture, anemia, neuromuscular, this is not meant to be an all-inclusive list. EKG interpreted by me (3pts min.). @ -As above X-rays interpreted by me (1pt min.). @ -None done CT interpreted by me (1pt min.). @ -None done U/S interpreted by me (1pt. min.). @ -None done What testing was considered but not performed or refused? (CT, X-rays, U/S, labs)? Why? @ -None What meds were considered but not given or refused? Why? @ -None Did you discuss the management of the patient with other professionals (professionals i.e. CORAL Reddy, UNHAIRING MACHINE OPERATOR, lab, RT, psych nurse, oncology social work, geological specialist, teacher, donor relations officer, case checker)? Give summary @ -Spoke with sound physicians and they agreed to admit the patient Was smoking cessation discussed for >3mins.? @ -No Was critical care preformed (if so, how long)? @ -No Were there social determinants of health that impacted care today? How? (Homelessness, low income, unemployed, alcoholism, drug addiction, transpo rtation, low edu. Level, literacy, decrease access to med. care, detention, rehab)? @ -No Was there de-escalation of care discussed even if they declined (Discuss DNR or withdrawal of care, Hospice)? DNR status @ -No What co-morbidities impacted this encounter? (DM, HTN, Smoking, COPD, CAD, Cancer, CVA, ARF, Chemo, Hep., AIDS, mental health diagnosis, sleep apnea, morbid obesity)? @ -None Was patient admitted / discharged? Hospital course, mention meds given and route, prescriptions, significant lab abnormalities, going to OR and other pertinent info. @ -Patient received 1 unit of packed red blood cells in the emergency department. Patient's hemoglobin was 6.6. I will hold Xarelto. Undiagnosed new problem with uncertain prognosis? @ -No Drug Therapy requiring intensive monitoring for toxicity (Heparin, Nitro, Insulin, Cardizem)? @ -No Were any procedures done? @ -No Diagnosis/symptom? @ -Default Acute, or Chronic, or Acute on Chronic? @ -Acute Uncomplicated (without systemic symptoms) or Complicated (systemic symptoms)? @ -Comp Side effects of treatment? @ -No Exacerbation, Progression, or Severe Exacerbation? @ -No Poses a threat to life or bodily function? How? (Chest pain, USA, MD, pneumonia, PE, COPD, DKA, ARF, appy, cholecystitis, CVA, Diverticulitis, Homicidal, Suicidal, threat to staff... and all critical care pts) @ -Yes this can lead to hypoxia and endorgan dysfunction (Octavio Funes) Disposition <Shannon Zuniga - Last Filed: 02/02/24 16:57> Time of Disposition: 18:23 <Octavio Funes - Last Filed: 02/02/24 18:23> Clinical Impression: Anemia Disposition: ADMITTED IP TO THIS HOSP Referrals: Daniel Perez MD [Primary Care Provider] - 1-2 days
[2024-02-02 17:42] LABS: ALT 12 U/L (4-34); AST 28 U/L (14-36); African American GFR (CKD) 68 (>60 ml/min/1.73 sqM); Albumin 3.7 g/dL (3.5-5.0); Alkaline Phosphatase 59 U/L (38-126); Anion Gap 14 mmol/L; Blood Urea Nitrogen 20 mg/dL (7-17); Calcium 9.5 mg/dL (8.4-10.2); Carbon Dioxide 28 mmol/L (22-30); Chloride 92 mmol/L (98-107); Glucose 123 mg/dL (74-99); Non-African American GFR(CKD) 59 (>60 ml/min/1.73 sqM); Potassium 3.6 mmol/L (3.5-5.1); Sodium 134 mmol/L (137-145); Total Bilirubin 1.3 mg/dL (0.2-1.3); Total Protein 6.6 g/dL (6.3-8.2)
[2024-02-02 17:43] LABS: Anisocytosis Slight; Basophils # (A) 0.1 k/uL (0-0.2); Basophils % (A) 1 %; Eosinophils # (A) 0.2 k/uL (0-0.7); Eosinophils % (A) 4 %; Hypochromasia Marked; Lymphocytes # (A) 1.1 k/uL (1.0-4.8); Lymphocytes % (A) 18 %; MCH 21.6 pg (25.0-35.0); Mean Platelet Volume 7.2; Microcytosis Moderate; Monocytes # (A) 0.3 k/uL (0-1.0); Monocytes % (A) 6 %; Neutrophils # (A) 4.1 k/uL (1.3-7.7); Neutrophils % (A) 70 %; Platelet Count 410 k/uL (150-450); Poikilocytosis Slight; RBC 3.06 m/uL (3.80-5.40); RDW 17.8 % (11.5-15.5); WBC 5.9 k/uL (3.8-10.6)
[2024-02-02 17:47] LABS: HGB 6.6 gm/dL (11.4-16.0)
[2024-02-02 17:51] LABS: INR 0.8 (<1.2); Prothrombin Time 9.5 sec (10.0-12.5)
[2024-02-02 18:08] LABS: Partial Thromboplastin Time 19.8 sec (22.0-30.0)
--- NOTE | 2024-02-02 20:32 | P.HPIM ---
History of Present Illness H&P Date: 02/02/24 Patient is a 68-year-old female with a past medical history of Crohn's disease, blood clots/DVT/PE (on Xarelto), hypothyroidism presents to the ED with abnormal lab values, shortness of breath, and heart palpitations. Patient says she noticed her shortness of breath that started back in July along with heart palpitations. She has dyspnea with exertion, improves with rest. The exertional dyspnea has associated palpitations. She has been regularly following up with a data integrity consultant, and has a scheduled heart catheterization at the end of this month. She denies any history of ID or CVA. During her most recent visit with the data integrity consultant, they checked her Hgb was was low. He advised her to go to the emergency department immediately. She admits to having iron infusions every 3-4 months and B12 injections monthly due to her Crohn's disease. She denies any current chest pain in the ED. She denies any bloody stools, melena, hemoptysis, gum bleeding, hematuria, hematemesis. She admits to nausea, dizziness, and fatigue, but denied vomiting or loss of consciousness. No pertinent imaging Troponin <0.012, Hgb 6.6, MCV 72.0, PT 9.5, INR 0.8, APTT 19.8, sodium 134, chloride 92, BUN 20, creatinine 123, TSH 2.57 T 97.8F, UT 83, RR 16, BP 128/65, O2 sat 100% on room air ED documentation reviewed. Review of systems: Pertinent positives and negatives as discussed in HPI, a complete review of systems was performed and all other systems are negative. Social history: Tobacco: Former smoker of [id number] smoker, quit 25 years ago Alcohol: Occasional beer every month or so Recreational drugs: Denies illicit drug use Travel: Denies recent travel Occupation: Not obtained Physical examination: Vital signs reviewed General: non toxic, no distress, appears at stated age, normal weight Derm: no unusual rashes/lesions, warm Head: atraumatic, normocephalic, symmetric Eyes: EOMI, anicteric sclera, pupils equal round reactive to light ENT: Nose and ears atraumatic Mouth: no lip lesion, mucus membranes moist Cardiovascular: S1S2 reg, no murmur, positive dorsalis pedis pulse bilateral, no edema Lungs: CTA bilateral, no rhonchi, no rales, no accessory muscle use Abdominal: soft, nontender to palpation, no guarding Ext: muscle strength 5 out of 5 in all 4 extremities grossly, no gross muscle atrophy, no contractures Neuro: CN II-XI grossly intact, no gross focal neuro deficits Psych: Alert, oriented, appropriate affect Assessment/Plan: Patient is a 68-year-old female with a past medical history of Crohn's disease, blood clots (on Xarelto), hypothyroidism presents to the ED with abnormal lab values, shortness of breath, and heart palpitations. #. Microcytic anemia in the setting of Crohn's disease Rule out GI bleed Hgb 6.6, MCV 72.0 Total bilirubin 1.3 within normal limits Patient with fatigue, shortness of breath likely attributable to low hemoglobin Denies active bleeding, or bloody stool No jaundice, or scleral icterus present on physical exam Type and screen ordered 1 unit packed RBC ordered by ED due to Hgb < 7 keep pt NPO Order iron profile Order reticulocyte count Order LDH, haptoglobin, to rule out hemolytic anemia Occult blood ordered to assess for possible GIB Continue mesalamine 1000 mg PO QID Protonix 40 mg IVP twice daily Follow-up CBC every 6 hours Consult hematology Consult GI #. Mild hyponatremia #. Mild hyperglycemia #. Elevated BUN Sodium 134, BUN 20, glucose 123 Likely in the setting of anemia Elevated BUN in setting of suspected GI bleed Continue to monitor and follow-up with CMP #. History of blood clots/DVT/PE Hold Xarelto 10 mg PO in setting of severe anemia #. Hypothyroidism Continue Synthroid 100 mcg PO daily F: 1 unit packed RBCs E: Replete electrolytes as needed N: NPO A: Patient ambulatory DVT prophylaxis: IPCDs The patient is admitted with an anticipated left than 2 midnight stay for evaluation of anemia. CODE STATUS: Full Discussed with: Patient Anticipated discharge place: Home Past Medical History Past Medical History: Deep Vein Thrombosis (DVT), Pulmonary Embolus (PE), Thyroid Disorder Additional Past Medical History / Comment(s): bleeding with stools, crohns History of Any Multi-Drug Resistant Organisms: None Reported Past Surgical History: Bowel Resection, Cholecystectomy, Hysterectomy Additional Past Surgical History / Comment(s): ileostomy, thyroidectomy Past Anesthesia/Blood Transfusion Reactions: No Reported Reaction Additional Past Anesthesia/Blood Transfusion Reaction / Comment(s): no problems w/ prior blood transfusion Past Psychological History: No Psychological Hx Reported Smoking Status: Former smoker Past Alcohol Use History: None Reported Past Drug Use History: None Reported - Past Family History Daughter(s) Family Medical History: Diabetes Mellitus Medications and Allergies Home Medications Medication Instructions Recorded Confirmed Type Levothyroxine Sodium [Synthroid] 100 mcg PO DAILY 06/27/15 02/02/24 History Cholecalciferol [Vitamin D3 (25 50 mcg PO DAILY 05/20/18 02/02/24 History Mcg = 1000 Iu)] Acetylcysteine [Nac] 500 mg PO DAILY 06/27/22 02/02/24 History Calcium(Unk Dose) 2 cap PO DAILY 06/27/22 02/02/24 History Cyanocobalamin [Vitamin B-12 1,000 mcg IM Q30D 02/02/24 02/02/24 History Injection] Mesalamine [Pentasa] 1,000 mg PO QID 02/02/24 02/02/24 History Rivaroxaban [Xarelto] 10 mg PO HS 02/02/24 02/02/24 History Vit C/E/Zn/Coppr/Lutein/Zeaxan 1 cap PO BID 02/02/24 02/02/24 History [Preservision Areds 2 Softgel] Allergies Allergy/AdvReac Type Severity Reaction Status Date / Time No Known Allergies Allergy Verified 02/02/24 18:48 Physical Exam Vitals: Vital Signs Temp Pulse Resp BP Pulse Ox 02/02/24 17:04 97.8 F 83 16 128/65 100 Intake and Output 02/02/24 02/02/24 02/02/24 06:59 14:59 22:59 Other: Weight 68.039 kg Results CBC & Chem 7: 02/02/24 17:23 02/02/24 17:23 Labs: Abnormal Lab Results - Last 24 Hours (Table) 02/02/24 02/02/24 02/02/24 Range/Units 17:23 17:23 17:23 RBC 3.06 L (3.80-5.40) m/uL Hgb 6.6 L* (11.4-16.0) gm/dL Hct 22.0 L (34.0-46.0) % MCV 72.0 L (80.0-100.0) fL MCH 21.6 L (25.0-35.0) pg MCHC 30.0 L (31.0-37.0) g/dL RDW 17.8 H (11.5-15.5) % PT 9.5 L (10.0-12.5) sec APTT 19.8 L (22.0-30.0) sec Sodium 134 L (137-145) mmol/L Chloride 92 L (98-107) mmol/L BUN 20 H (7-17) mg/dL Glucose 123 H (74-99) mg/dL
[2024-02-02 22:54] LABS: Anisocytosis Slight; Basophils # (A) 0.1 k/uL (0-0.2); Basophils % (A) 1 %; Eosinophils # (A) 0.2 k/uL (0-0.7); Eosinophils % (A) 3 %; HCT 24.2 % (34.0-46.0); HGB 7.4 gm/dL (11.4-16.0); Hypochromasia Marked; Lymphocytes # (A) 0.9 k/uL (1.0-4.8); Lymphocytes % (A) 15 %; MCH 23.1 pg (25.0-35.0); MCHC 30.4 g/dL (31.0-37.0); MCV 75.9 fL (80.0-100.0); Mean Platelet Volume 6.9; Microcytosis Moderate; Monocytes # (A) 0.4 k/uL (0-1.0); Monocytes % (A) 6 %; Neutrophils # (A) 4.4 k/uL (1.3-7.7); Neutrophils % (A) 73 %; Platelet Count 359 k/uL (150-450); Poikilocytosis Moderate; RDW 18.4 % (11.5-15.5); WBC 6.1 k/uL (3.8-10.6)
[2024-02-03] MEDS: PANTOPRAZOLE 40 MG/10 ML VIAL IVP ONE (00:15)
[2024-02-03] MEDS: diphenhydrAMINE 25 MG CAP PO STA (02:33)
[2024-02-03] MEDS: LEVOTHYROXINE 100 MCG TAB PO SCH (06:25)
[2024-02-03] MEDS: PANTOPRAZOLE 40 MG/10 ML VIAL IVP SCH (09:12)
[2024-02-03] MEDS: BALSALAZIDE DISODIUM 750 MG CAPSULE PO SCH (09:12)
[2024-02-03 09:34] LABS: Basophils # (A) 0.09 X 10*3/uL (0.00-0.10); Basophils % (A) 1.7 %; Eosinophils # (A) 0.18 X 10*3/uL (0.04-0.35); Eosinophils % (A) 3.4 %; HCT 24.5 % (37.2-46.3); HGB 7.3 g/dL (12.0-15.0); Lymphocytes # (A) 0.98 X 10*3/uL (0.90-5.00); Lymphocytes % (A) 18.3 %; MCH 23.2 pg (27.0-32.0); MCHC 29.8 g/dL (32.0-37.0); Mean Platelet Volume 9.6 FL (9.5-12.2); Monocytes # (A) 0.51 X 10*3/uL (0.20-1.00); Monocytes % (A) 9.5 %; NRBC Per 100 WBC 0 X 10*3/uL (0.00-0.01); Neutrophils # (A) 3.55 X 10*3/uL (1.80-7.70); Neutrophils % (A) 66.4 %; Platelet Count 327 X 10*3/uL (140-440); RBC 3.14 X 10*6/uL (4.10-5.20); RDW 17.7 % (11.5-14.5); WBC 5.35 X 10*3/uL (4.50-10.00)
[2024-02-03 09:35] LABS: Reticulocyte % 3.25 % (0.10-1.80)
--- NOTE | 2024-02-03 10:18 | US ---
EXAMINATION TYPE: US venous doppler duplex LE LT DATE OF EXAM: 02/03/2024 9:28 AM COMPARISON: Multiple, most recent 09/26/2022 CLINICAL INDICATION: Female, 68 years old with history of L calf pain extented to thigh; Tightness ar ound knee; Hx DVT RLE; On thinners SIDE PERFORMED: Left TECHNIQUE: The lower extremity deep venous system is examined utilizing real time linear array sonog ziyad with graded compression, doppler sonography and color-flow sonography. VESSELS IMAGED: Common Femoral Vein Deep Femoral Vein Greater Saphenous Vein * Femoral Vein Popliteal Vein Small Saphenous Vein * Proximal Calf Veins (* superficial vessels) Left Leg: Negative for DVT IMPRESSION: Grayscale, color doppler, spectral doppler imaging performed of the deep veins of the lo wer extremities. There is normal flow, compressibility, vascular waveforms. [facility] 02/03/2024 10:04 AM
[2024-02-03 10:55] LABS: % Iron Saturation 3.51 (12.00-45.00); ALT 9 U/L (8-44); AST 17 U/L (13-35); Albumin 3.3 g/dL (3.8-4.9); Alkaline Phosphatase 48 U/L (41-126); BUN/Creat Ratio 14.73 Ratio (12.00-20.00); Blood Urea Nitrogen 16.2 mg/dL (9.0-27.0); Calcium 8.9 mg/dL (8.7-10.3); Chloride 104 mmol/L (96-109); Globulin 2.2 g/dL (1.6-3.3); Glucose 94 mg/dL (70-110); Iron 19 UG/DL (50-170); LDH 154 U/L (120-246); Magnesium 1.9 mg/dL (1.5-2.4); Potassium 3.7 mmol/L (3.5-5.5); Sodium 140 mmol/L (135-145); Total Bilirubin 1.4 mg/dL (0.3-1.2); Total Iron Binding Capacity 542 UG/DL (228-460); Total Protein 5.5 g/dL (6.2-8.2)
--- NOTE | 2024-02-03 13:46 | P.CONS ---
History of Present Illness - Reason for Consult Consult date: 02/03/24 Iron deficiency anemia, acute on chronic, anticoagulation - History of Present Illness The patient is a 68-year-old white female, well-known to myself ,with a complicated past medical history. The patient has a long-standing history of Crohn's disease, and has had multiple surgeries including total colectomy with ileostomy formation. The patient had a DVT in her right lower extremity, and PE, initially about 6-7 years ago. She was treated with Xarelto for about a year and a half after which this was discontinued. The patient was seen by hematology at the time, Dr. Salazar, at [facility]. She states that she did have some blood work done but was not aware if she had a hypercoagulable workup. The patient did not recall any specific provoking factors. She did not remember if her Crohn's had been active at that time or not. she had been having some bleeding per rectum, due to which she had endoscopic evaluation with GI on 06/29/22.. This revealed some 1 small ulcer and some erosions in the distal ileum. Upper endoscopy was positive for hiatal hernia. The patient was started on Budesonide. She is also on Pentasa. She started experiencing some discomfort and swelling in the right lower extremity since about 06/30/22. Because of progression of the symptoms she came into the emergency room. In retrospect she had also experienced some discomfort under the left shoulder blade on 07/01/22. Doppler showed DVT in the right leg extending from the common femoral vein down into the popliteal vein, as well as superficial thrombus in the greater saphenous vein. CT angiogram revealed bilateral lower lobe segmental and subsegmental emboli. Patient was admitted and started on IV heparin. Her hemoglobin on admission was 9.8. It had been in the 12 range in late 2020. Patient's echocardiogram showed reduced ejection fraction at 40-45% but no evidence of right heart strain. She did have a Doppler in 2019 of the right lower extremity that was negative. Regarding her current episode she denied any recent surgery, hospitalization, prolonged travel. No history of any ongoing, long-standing steroid use or hormonal supplementation. She denied any history of COVID. She is a nonsmoker and quite active at baseline The patient was seen and consulted during the above admission in 07/14. 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 Therefore indefinite anticoagulation was recommended. Workup for anemia revealed iron, as well as subsequently B12 deficiency. Etiologies were felt to include blood loss as well as decreased absorption. It was felt that given her risk factors, it would be reasonable to continue anticoagulation, as long as her hemoglobin could be maintained in an adequate range with ongoing monitoring and supplementation. The patient was continued on anticoagulation as outpatient, with follow-up Dopplers revealing improvement in clot burden and development of chronic characteristics. The patient is receiving IM B12 in the office, as well as IV iron intermittently. The patient was last seen in the office in 11/12. Her hemoglobin in 12/12 at her PCPs had dropped to 7.4. Labs were positive for iron deficiency, and IV iron was ordered. However postponed her infusions due to some personal issues, with a plan to schedule them sometime in 02/12. The patient has been having problems with shortness of breath and palpitations since about 08/12. Symptoms have been slowly progressive. There was significant worsening, especially over the past couple of months. The patient was seen by cardiology and had preop workup done, that showed hemoglobin of 6.6, with MCV in the low 70 range. The patient was therefore sent into the emergency room. Labs are consistent with iron deficiency. Patient received a unit of PRBC with appropriate improvement in hemoglobin. She also experienced significant symptom atic improvement. Consult was placed for further evaluation and recommendations. The patient has had issues with bleeding into her ostomy, which visually has been quite significant in the past. Despite the same, her hemoglobin had remained actually quite satisfactory. She had been referred to colorectal surgery to see if revision of the ostomy was possible, but that was ruled out due to the procedure being technically difficult. The bleeding in the ostomy had actually improved significantly once the patient changed the timing of the Xarelto dose. She states that she had noted small amounts of red blood in the ostomy over the past 3 to 4 days but not prior to that. She has remained com pliant with her Xarelto. She is on the lower maintenance dosing of 10 mg/day, to which she was switched after she completed 6 months of treatment for her acute PE in 07/14. Review of Systems Constitutional: Reports fatigue Eyes: denies blurred vision, denies pain Ears: deny: decreased hearing, ear discharge, earache, tinnitus Ears, nose, mouth and throat: Denies headache, Denies sore throat Cardiovascular: Reports rapid heart beat, Reports shortness of breath Respiratory: Reports dyspnea Gastrointestinal: Reports as per HPI, Reports hematochezia Genitourinary: Denies dysuria, Denies hematuria Menstruation: Reports postmenopausal Musculoskeletal: Reports muscle weakness Integumentary: Denies pruritus, Denies rash Neurological: Reports weakness Psychiatric: Denies anxiety, Denies depression Endocrine: Reports fatigue Hematologic/Lymphatic: Reports as per HPI, Reports thrombophilia Past Medical History Past Medical History: Deep Vein Thrombosis (DVT), Pulmonary Embolus (PE), Thyroid Disorder Additional Past Medical History / Comment(s): bleeding with stools when started on eliquis, crohns History of Any Multi-Drug Resistant Organisms: None Reported Past Surgical History: Bowel Resection, Cholecystectomy, Hysterectomy Additional Past Surgical History / Comment(s): ileostomy, thyroidectomy Past Anesthesia/Blood Transfusion Reactions: No Reported Reaction Additional Past Anesthesia/Blood Transfusion Reaction / Comm: no problems w/ prior blood transfusion Past Psychological History: No Psychological Hx Reported Smoking Status: Former smoker Past Alcohol Use History: None Reported Additional Past Alcohol Use History / Comment(s): quit smoking ,started smoking at age 17 Past Drug Use History: None Reported - Past Family History Daughter(s) Family Medical History: Diabetes Mellitus Medications and Allergies Home Medications Medication Instructions Recorded Confirmed Type Levothyroxine Sodium [Synthroid] 100 mcg PO DAILY 06/27/15 02/02/24 History Cholecalciferol [Vitamin D3 (25 50 mcg PO DAILY 05/20/18 02/02/24 History Mcg = 1000 Iu)] Acetylcysteine [Nac] 500 mg PO DAILY 06/27/22 02/02/24 History Calcium(Unk Dose) 2 cap PO DAILY 06/27/22 02/02/24 History Cyanocobalamin [Vitamin B-12 1,000 mcg IM Q30D 02/02/24 02/02/24 History Injection] Mesalamine [Pentasa] 1,000 mg PO QID 02/02/24 02/02/24 History Rivaroxaban [Xarelto] 10 mg PO HS 02/02/24 02/02/24 History Vit C/E/Zn/Coppr/Lutein/Zeaxan 1 cap PO BID 02/02/24 02/02/24 History [Preservision Areds 2 Softgel] Allergies Allergy/AdvReac Type Severity Reaction Status Date / Time No Known Allergies Allergy Verified 02/02/24 18:48 Physical Exam Vitals: Vital Signs Temp Pulse Pulse Resp BP BP Pulse Ox 02/03/24 07:24 98.2 F 86 20 120/71 98 02/03/24 00:29 98.3 F 79 16 146/70 98 02/03/24 00:00 12 02/02/24 23:42 98.3 F 79 16 98 02/02/24 23:28 98.3 F 79 16 120/81 98 02/02/24 22:56 98.2 F 71 16 120/74 98 02/02/24 22:25 98.1 F 70 16 108/76 98 02/02/24 22:05 98.1 F 78 16 120/75 99 02/02/24 21:31 98.6 F 76 16 107/68 98 02/02/24 21:15 98.2 F 83 16 105/64 95 02/02/24 21:00 98.1 F 76 16 114/62 97 02/02/24 20:55 98.3 F 76 16 109/84 98 02/02/24 17:04 97.8 F 83 16 128/65 100 Intake and Output 02/02/24 02/03/24 02/03/24 22:59 06:59 14:59 Intake Total 310 Balance 310 Intake: Blood Product 310 Rc As-1 Unit 310 [id number] Other: Voiding Method Toilet Toilet # Voids 1 Weight 68.039 kg 68.039 kg - Constitutional General appearance: no acute distress - EENT Eyes: EOMI, PERRLA ENT: hearing grossly normal, normal oropharynx - Neck Neck: no lymphadenopathy Thyroid: bilateral: normal size - Respiratory Respiratory: bilateral: CTA - Cardiovascular Rhythm: regular Heart sounds: normal: S1, S2 - Gastrointestinal Left mid abdomen ostomy General gastrointestinal: normal bowel sounds, soft - Integumentary Integumentary: normal - Neurologic Neurologic: CNII-XII intact - Musculoskeletal Musculoskeletal: generalized weakness, strength equal bilaterally - Psychiatric Psychiatric: A&O x's 3, appropriate affect Results CBC & Chem 7: 02/03/24 03:01 02/03/24 03:01 Labs: Abnormal Lab Results - Last 24 Hours (Table) 02/02/24 02/02/24 02/02/24 Range/Units 17:23 17:23 17:23 RBC 3.06 L (3.80-5.40) m/uL Hgb 6.6 L* (11.4-16.0) gm/dL Hct 22.0 L (34.0-46.0) % MCV 72.0 L (80.0-100.0) fL MCH 21.6 L (25.0-35.0) pg MCHC 30.0 L (31.0-37.0) g/dL RDW 17.8 H (11.5-15.5) % Lymphocytes # (1.0-4.8) k/uL Retic Count (0.10-1.80) % PT 9.5 L (10.0-12.5) sec APTT 19.8 L (22.0-30.0) sec Sodium 134 L (137-145) mmol/L Chloride 92 L (98-107) mmol/L BUN 20 H (7-17) mg/dL Est GFR (CKD-EPI) (>=60) Glucose 123 H (74-99) mg/dL Iron (50-170) UG/DL TIBC (228-460) UG/DL % Saturation (12.00-45.00) Transferrin (204.0-354.0) mg/dL Ferritin (10.0-291.0) ng/mL Total Bilirubin (0.3-1.2) mg/dL Total Protein (6.2-8.2) g/dL Albumin (3.8-4.9) g/dL Albumin/Globulin Ratio (1.60-3.17) Ratio Crossmatch 02/02/24 02/02/24 02/03/24 Range/Units 18:34 22:44 03:01 RBC 3.20 L (3.80-5.40) m/uL Hgb 7.4 L (11.4-16.0) gm/dL Hct 24.2 L (34.0-46.0) % MCV 75.9 L (80.0-100.0) fL MCH 23.1 L (25.0-35.0) pg MCHC 30.4 L (31.0-37.0) g/dL RDW 18.4 H (11.5-15.5) % Lymphocytes # 0.9 L (1.0-4.8) k/uL Retic Count (0.10-1.80) % PT (10.0-12.5) sec APTT (22.0-30.0) sec Sodium (137-145) mmol/L Chloride (98-107) mmol/L BUN (7-17) mg/dL Est GFR (CKD-EPI) (>=60) Glucose (74-99) mg/dL Iron (50-170) UG/DL TIBC (228-460) UG/DL % Saturation (12.00-45.00) Transferrin 387.0 H (204.0-354.0) mg/dL Ferritin (10.0-291.0) ng/mL Total Bilirubin (0.3-1.2) mg/dL Total Protein (6.2-8.2) g/dL Albumin (3.8-4.9) g/dL Albumin/Globulin Ratio (1.60-3.17) Ratio Crossmatch See Detail 02/03/24 02/03/24 02/03/24 Range/Units 03:01 03:01 03:01 RBC 3.14 L (3.80-5.40) m/uL Hgb 7.3 L (11.4-16.0) gm/dL Hct 24.5 L (34.0-46.0) % MCV 78.0 L (80.0-100.0) fL MCH 23.2 L (25.0-35.0) pg MCHC 29.8 L (31.0-37.0) g/dL RDW 17.7 H (11.5-15.5) % Lymphocytes # (1.0-4.8) k/uL Retic Count 3.25 H (0.10-1.80) % PT (10.0-12.5) sec APTT (22.0-30.0) sec Sodium (137-145) mmol/L Chloride (98-107) mmol/L BUN (7-17) mg/dL Est GFR (CKD-EPI) 55 L (>=60) Glucose (74-99) mg/dL Iron 19 L (50-170) UG/DL TIBC 542 H (228-460) UG/DL % Saturation 3.51 L (12.00-45.00) Transferrin 387.0 H (204.0-354.0) mg/dL Ferritin 7.0 L (10.0-291.0) ng/mL Total Bilirubin 1.4 H (0.3-1.2) mg/dL Total Protein 5.5 L (6.2-8.2) g/dL Albumin 3.3 L (3.8-4.9) g/dL Albumin/Globulin Ratio 1.50 L (1.60-3.17) Ratio Crossmatch Venous US: report reviewed Assessment and Plan (1) Anemia Narrative/Plan: The patient has a known history of anemia, mainly due to iron deficiency. There is also a multifactorial element, with B12 deficiency as well as possibly inflammation with underlying Crohn's disease. However typically her hemoglobin has been in the normal range as an outpatient if iron stores are replete. -The patient is on regular monitoring with IM B12, as well as IV iron as requ ired. With this approach, we have been able to maintain her hemoglobin in a satisfactory range, despite ongoing anticoagulation. The patient's hemoglobin had dropped to 7.4 in early 01/12 and IV iron was ordered. However the patient postponed the infusions because of some personal reasons and did not get the iron. Therefore hemoglobin has dropped further to 6.6. -Agree with transfusion to keep hemoglobin greater than 7. She had an appropriate response to transfusion. -The current picture, including appropriate response to transfusion, is indicative of gradual loss rather than a major acute bleed. Her labs are consistent with iron deficiency as expected. I will therefore start her on IV iron while inpatient, and proceed with additional doses as an outpatient. -The current drop in hemoglobin over the past couple of months does represent a change in her usual pattern. Therefore it would be reasonable to repeat GI workup, especially EGD, given her prior history of gastric ulcer, to check for any new issue. -Hold anticoagulation currently. We can rechallenge her once hemoglobin is improved into at least the 9-10 range as an outpatient -The patient has noted small amounts of blood in the ostomy. This is nonspecific, as in the past she has had much more significant hematochezia, with hemoglobin still remaining normal. -She will continue on IM B12 as an outpatient. Current Visit: Yes Status: Acute Priority: High Code(s): D64.9 - ANEMIA, UNSPECIFIED SNOMED Code(s): 899594437 (2) Hypercoagulable state Narrative/Plan: The patient has been recommended indefinite anticoagulation, because of her history of recurrent venous thromboembolism, including significant PE and DVT in 07/14 without any definite provoking factor. She has been tolerating anticoagulation quite well with ongoing monitoring and iron/B12 supplementation. Given her risk factors, as noted, it would be reasonable to rechallenge her with anticoagulation once we have a better question in terms of her hemoglobin, that is a level of around 9-10. The plan would be to again continue anticoagulation as long as her levels can be maintained in an adequate range with ongoing monitoring and supplementation Current Visit: Yes Status: Acute Code(s): D68.59 - OTHER PRIMARY THROMBOPHILIA SNOMED Code(s): 65591272
--- NOTE | 2024-02-03 13:56 | P.PN ---
Subjective Progress Note Date: 02/03/24 Subjective: Patient seen and examined at the bedside. Patient stated that she is feeling better after receiving 1 unit of PRBC. No chest pain, shortness of breath. Patient is complaining of mild left calf pain extending up to the thigh. All Systems reviewed and pertinent positives and negatives noted in HPI, all other symptoms are negative Objective: Vital signs reviewed. General: non toxic, no distress, appears at stated age, normal weight Derm: no unusual rashes/lesions, warm Head: atraumatic, normocephalic, symmetric Eyes: EOMI, no lid lag, anicteric sclera, pupils equal round reactive to light ENT: Nose and ears atraumatic Neck: No cervical lymphadenopathy, trachea midline, supple Mouth: no lip lesion, mucus membranes moist Cardiovascular: S1S2 reg, no murmur, positive dorsalis pedis pulse bilateral, no edema Lungs: CTA bilateral, no rhonchi, no rales, no accessory muscle use Abdominal: soft, nontender to palpation, no guarding Ext: muscle strength 5 out of 5 in all 4 extremities grossly, no gross muscle atrophy, no contractures, mild left calf pain extending to L thigh Neuro: CN II-XI grossly intact, no gross focal neuro deficits Psych: Alert, oriented, appropriate affect Data reviewed today: Labs: WBC 5.35, hemoglobin 7.3, hematocrit 24.5, MCV 78.0, platelet count 327, reticulocyte count 3.25 Sodium 140, potassium 3.7, chloride 104, BUN 16.2, creatinine 1.1, calcium 8.9, magnesium 1.9, Iron 19, TIBC 542, percent saturation 3.51, transferrin 387.0, ferritin 7.0, LDH 154, total bili 1.4, Venous Doppler ultrasound of the left lower extremity negative for DVT Assessment and Plan: 68-year-old female with PMH of Crohn's disease, multiple blood clots on Xarelto, hypothyroidism presented to ED with abnormal lab values, shortness of breath, and heart palpitations. Her laboratory evaluation in the ED showed hemoglobin level of 6.6. Patient was given 1 unit of packed RBC. Her hemoglobin improved to 7.3. #Microcytic anemia in the setting of Crohn's disease #Rule out GI bleed #Iron deficiency anemia Hemoglobin 7.3 status post 1 unit of packed RBC in the ED Denies active bleeding, or bloody stool Type and screen ordered keep pt NPO Iron studies: Iron 19, TIBC 542, percent saturation 3.51, transferrin 387, ferritin 7.0 --> iron deficiency anemia Reticulocyte count of 3.25 with absolute reticulocyte count of 2.2 and reticulocyte index<2 indicating hypoproliferation Hemolytic hemolysis workup: Haptoglobin 176, LDH 154 Stool occult test for GI bleeding pending Continue mesalamine 1000 mg PO QID Protonix 40 mg IVP twice daily Follow-up CBC Consult hematology: IV iron started; patient to follow-up with hematology as an outpatient. Consult GI #Mild hyponatremia, resolved #Mild hyperglycemia, resolved #Elevated BUN, resolved Likely in the setting of anemia Elevated BUN in setting of suspected GI bleed Continue to monitor and follow-up with CMP #History of blood clots/DVT/PE Hold Xarelto 10 mg PO in setting of severe anemia Venous Doppler ultrasound of the left lower extremity negative for DVT #Hypothyroidism Continue Synthroid 100 mcg PO daily F: Status post 1 unit packed RBCs E: Replete electrolytes as needed N: NPO A: Patient ambulatory DVT prophylaxis: SCDs The patient is admitted with an anticipated left than 2 midnight stay for evaluation of anemia. CODE STATUS: Full Discussed with: Patient Anticipated discharge place: Home I have seen and evaluated the patient today. Discussed with the resident and agree with the residents finding and plan as documented in the resident's note. Patient with intermittent bleeding from her stoma since being on Xarelto. Transfused 1 unit PRBC. Repeat CBC tomorrow. Hematology consulted, started on Fe infusions. Surgery consulted, started on regular diet. Objective - Vital Signs Vital signs: Vital Signs Temp 98.3 F 02/03/24 00:29 Pulse 79 02/03/24 00:29 Resp 16 02/03/24 00:29 BP 146/70 02/03/24 00:29 Pulse Ox 98 02/03/24 00:29 FiO2 Intake & Output 02/02/24 02/02/24 02/03/24 06:59 18:59 06:59 Intake Total 310 Balance 310 Weight 68.039 kg 68.039 kg Intake: Blood Product 310 Rc As-1 Unit 310 [id number] Other: Voiding Method Toilet # Voids 1 - Labs CBC & Chem 7: 02/03/24 15:08 02/03/24 03:01 Labs: Abnormal Lab Results - Last 24 Hours (Table) 02/02/24 02/02/24 02/02/24 Range/Units 17:23 17:23 17:23 RBC 3.06 L (3.80-5.40) m/uL Hgb 6.6 L* (11.4-16.0) gm/dL Hct 22.0 L (34.0-46.0) % MCV 72.0 L (80.0-100.0) fL MCH 21.6 L (25.0-35.0) pg MCHC 30.0 L (31.0-37.0) g/dL RDW 17.8 H (11.5-15.5) % Lymphocytes # (1.0-4.8) k/uL PT 9.5 L (10.0-12.5) sec APTT 19.8 L (22.0-30.0) sec Sodium 134 L (137-145) mmol/L Chloride 92 L (98-107) mmol/L BUN 20 H (7-17) mg/dL Glucose 123 H (74-99) mg/dL Crossmatch 02/02/24 02/02/24 Range/Units 18:34 22:44 RBC 3.20 L (3.80-5.40) m/uL Hgb 7.4 L (11.4-16.0) gm/dL Hct 24.2 L (34.0-46.0) % MCV 75.9 L (80.0-100.0) fL MCH 23.1 L (25.0-35.0) pg MCHC 30.4 L (31.0-37.0) g/dL RDW 18.4 H (11.5-15.5) % Lymphocytes # 0.9 L (1.0-4.8) k/uL PT (10.0-12.5) sec APTT (22.0-30.0) sec Sodium (137-145) mmol/L Chloride (98-107) mmol/L BUN (7-17) mg/dL Glucose (74-99) mg/dL Crossmatch See Detail
[2024-02-03] MEDS: ACETAMINOPHEN TAB 325 MG TAB PO PRN (15:05)
[2024-02-03] MEDS: SODIUM FERRIC GLUCONAT-SUCROSE 125 MG in SODIUM CHLORIDE 0.9% 100 ML IVPB SCH (15:06)
[2024-02-03 15:25] LABS: Anisocytosis Slight; Basophils % (A) 1 %; Eosinophils # (A) 0.2 k/uL (0-0.7); Eosinophils % (A) 3 %; HCT 27.5 % (34.0-46.0); HGB 8.4 gm/dL (11.4-16.0); Hypochromasia Marked; Lymphocytes # (A) 0.8 k/uL (1.0-4.8); Lymphocytes % (A) 13 %; MCH 23.2 pg (25.0-35.0); MCHC 30.4 g/dL (31.0-37.0); MCV 76.3 fL (80.0-100.0); Mean Platelet Volume 6.5; Microcytosis Slight; Monocytes # (A) 0.3 k/uL (0-1.0); Monocytes % (A) 6 %; Neutrophils # (A) 4.4 k/uL (1.3-7.7); Neutrophils % (A) 75 %; Platelet Count 383 k/uL (150-450); Poikilocytosis Moderate; RBC 3.61 m/uL (3.80-5.40); RDW 18.1 % (11.5-15.5); WBC 5.8 k/uL (3.8-10.6)
[2024-02-03 17:11] LABS: Glucose,Whole Blood 98 mg/dL (70-110)
--- NOTE | 2024-02-03 18:05 | P.CON ---
Consult Note - . Consult date: 02/03/24 Assessment/Plan:: This is a 68-year-old female who presented to the [facility] emergency department the past medical history significant for Crohn's and blood clots. Patient is on Xarelto. Patient states when she first went on Xarelto she had a lot of GI bleeding but that has stopped. Patient has noticed though lately she has been having some chest pressure and shortness of breath particularly with exertion and also feeling like she might pass out particularly when she is in the shower. Patient denies any black or bloody stools. Patient has abdominal pain. Patient denies any chest pain at this time. Patient states just getting up and walking to the bathroom in the emergency department cause her to be short of breath. Patient has a history of gastric ulcer and gastritis. She received 1 unit PRBCs and her hemoglobin is currently stable. Review of Systems ROS Other: All systems not noted in ROS Statement are negative. Past Medical History Past Medical History: Deep Vein Thrombosis (DVT), Pulmonary Embolus (PE), Thyroid Disorder Additional Past Medical History / Comment(s): bleeding with stools, crohns History of Any Multi-Drug Resistant Organisms: None Reported Past Surgical History: Bowel Resection, Cholecystectomy, Hysterectomy Additional Past Surgical History / Comment(s): ileostomy, thyroidectomy Past Anesthesia/Blood Transfusion Reactions: No Reported Reaction Additional Past Anesthesia/Blood Transfusion Reaction / Comment(s): no problems w/ prior blood transfusion Past Psychological History: No Psychological Hx Reported Smoking Status: Former smoker Past Alcohol Use History: None Reported Additional Past Alcohol Use History / Comment(s): quit smoking ,started smoking at age 17 Past Drug Use History: None Reported - Past Family History Daughter(s) Family Medical History: Diabetes Mellitus General Exam Vital signs reviewed General: Well-appearing, nontoxic, no acute distress. Head: Normocephalic, atraumatic Eyes: PERRLA, EOMI ENT: Airway patent Chest: Nonlabored breathing Skin: No visual rash, normal skin tone Neuro: Alert and oriented 3 Musculoskeletal: No gross abnormalities 68 year old female with history of gastric ulcer and gastritis with GIB. -Patient received 1 units PRBCS. Hemoglobin has been stable -Will start patient on Regular Diet -Patient will need outpatient EGD. However, if patient has more episodes of bleeding, may require inpatient EGD -GI recs -[facility] [phone]
[2024-02-04 00:06] LABS: Glucose,Whole Blood 119 mg/dL (70-110)
[2024-02-04 07:23] LABS: Glucose,Whole Blood 102 mg/dL (70-110)
[2024-02-04 07:44] VITALS: BP 103/65; PULSE 78; RESP 17; TEMP 98.5
--- NOTE | 2024-02-04 09:24 | P.PN ---
Progress Note - Text Progress Note Date: 02/04/24 NAEO. No further episodes of bleeding. Tolerating Diet. Vital signs reviewed General: Well-appearing, nontoxic, no acute distress. Head: Normocephalic, atraumatic Eyes: PERRLA, EOMI ENT: Airway patent Chest: Nonlabored breathing Skin: No visual rash, normal skin tone Neuro: Alert and oriented 3 Musculoskeletal: No gross abnormalities 68 year old female with history of gastric ulcer and gastritis with GIB. -Patient received 1 units PRBCS. Hemoglobin has been stable. AM hemoglobin pending -Regular Diet -Patient will need outpatient EGD. However, if patient has more episodes of bleeding, may require inpatient EGD -GI recs -PPI Brayden [facility] [phone]
[2024-02-04 09:37] LABS: BUN/Creat Ratio 13.64 Ratio (12.00-20.00); Calcium 8.9 mg/dL (8.7-10.3); Carbon Dioxide 25.4 mmol/L (21.6-31.8); Chloride 105 mmol/L (96-109); Glucose 92 mg/dL (70-110); Sodium 140 mmol/L (135-145)
[2024-02-04 09:48] LABS: Basophils # (A) 0.07 X 10*3/uL (0.00-0.10); Basophils % (A) 1.2 %; Eosinophils # (A) 0.17 X 10*3/uL (0.04-0.35); HCT 26.6 % (37.2-46.3); HGB 7.6 g/dL (12.0-15.0); Lymphocytes # (A) 0.76 X 10*3/uL (0.90-5.00); Lymphocytes % (A) 13.2 %; MCH 22.6 pg (27.0-32.0); MCHC 28.6 g/dL (32.0-37.0); MCV 78.9 FL (80.0-97.0); Mean Platelet Volume 9.1 FL (9.5-12.2); Monocytes # (A) 0.62 X 10*3/uL (0.20-1.00); Monocytes % (A) 10.8 %; NRBC Per 100 WBC 0.03 X 10*3/uL (0.00-0.01); Neutrophils # (A) 4.09 X 10*3/uL (1.80-7.70); Neutrophils % (A) 71.1 %; Platelet Count 345 X 10*3/uL (140-440); RBC 3.37 X 10*6/uL (4.10-5.20); RDW 18.1 % (11.5-14.5); WBC 5.75 X 10*3/uL (4.50-10.00)
--- NOTE | 2024-02-04 13:16 | P.DS ---
Providers Date of admission: 02/02/24 18:24 Expected date of discharge: 02/04/24 Attending physician: Jay Jay Jin MD Consults: 02/02/24 18:24 Consult Physician Urgent Consulting Provider: Virgilio Fishman Consult Reason/Comments: Anemia Do you want consulting provider notified?: Yes 02/02/24 21:58 Consult Physician Urgent Consulting Provider: Katy Rosa Consult Reason/Comments: Severe anemia, suspected GIB Do you want consulting provider notified?: Yes 02/03/24 09:28 Consult Physician Routine Consulting Provider: Tim Roe Consult Reason/Comments: Poss GI bleed Do you want consulting provider notified?: Yes Primary care physician: 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 Patient says she noticed her shortness of breath that started back in July along with heart palpitations. She has dyspnea with exertion, improves with rest. The exertional dyspnea has associated palpitations. She has been regularly following up with a business account executive, and has a scheduled heart catheterization at the end of this month. She admits to having iron infusions every 3-4 months and B12 injections monthly due to her Crohn's disease. She denies any current chest pain in the ED. She denies any bloody stools, melena, hemoptysis, gum bleeding, hematuria, hematemesis. In the ED she underwent extensive evaluation. BP 128/65, HR 83, T 97.8F, RR 16, 100% on RA. CBC, Coag panel, CMP significant for RBC 3.06, Hg 6.6, Hct 22, MCV 72, PT 9.5, APTT 19.8, Na 134, Cl 92, BUN 20, glu 123. Mag 2. Troponin < 0.012. TSH 2.57. Venous doppler LLE negative. She was transfused 1 unit PRBC and admitted for further evaluation. Evaluated by Dr. Fishman who recommended continued iron infusion. Surgery evaluated her and started her on a regular diet with recommendations of outpatient EGD. Iron studies showed Fe 19, Ferritin 7. Her Hg improved to 7.6 on the day of discharge. 02/03 Patient was seen and examined. She reports significant improvement in her breathing and fatigue. She reports feeling great. No signs of bleeding in the stoma. She has lost her IV access so unable to do an iron transfusion today but has an appointment scheduled with Dr. Fishman on Monday for a scheduled infusion. Plans for discharge home today. Restart Xarelto. Repeat CBC in 3 days to be followed up with PCP and Dr. Fishman. Follow up with Dr. Vera within 1 week of discharge. May need outpatient EGD. Advised to come back to the ED for worsening shortness of breath, chest pain, palpitations or dizziness. Patient verbalized understanding of the plan. General: Nontoxic, no distress, appears at stated age Derm: Warm, dry Head: Atraumatic, normocephalic, symmetric Eyes: EOMI, no lid lag, anicteric sclera Mouth: No lip lesion, mucus membranes moist Cardiovascular: RRR. Normal S1 S2. No murmurs, rubs, gallops Lungs: Clear to auscultation bilaterally, no accessory muscle use Ext: No gross muscle atrophy, no edema, no contractures Psych: Alert, oriented, appropriate affect Discharge Diagnosis: Microcytic anemia in the setting of Crohn's disease Rule out GI bleed Iron deficiency anemia History of DVT/PE Hypothyroidism Resolved: Mild hyponatremia, Hyperglycemia, Elevated BUN This complex discharge took 35 minutes to complete. Patient Condition at Discharge: Stable Plan - Discharge Summary Discharge Rx Participant: Yes New Discharge Prescriptions: New Pantoprazole [Protonix] 40 mg PO DAILY #30 tab Continue Levothyroxine Sodium [Synthroid] 100 mcg PO DAILY Cholecalciferol [Vitamin D3 (25 Mcg = 1000 Iu)] 50 mcg PO DAILY Calcium(Unk Dose) 2 cap PO DAILY Rivaroxaban [Xarelto] 10 mg PO HS Vit C/E/Zn/Coppr/Lutein/Zeaxan [Preservision Areds 2 Softgel] 1 cap PO BID Acetylcysteine [Nac] 500 mg PO DAILY Mesalamine [Pentasa] 1,000 mg PO QID Cyanocobalamin [Vitamin B-12 Injection] 1,000 mcg IM Q30D Discharge Medication List Levothyroxine Sodium [Synthroid] 100 mcg PO DAILY 06/27/15 [History] Cholecalciferol [Vitamin D3 (25 Mcg = 1000 Iu)] 50 mcg PO DAILY 05/20/18 [History] Acetylcysteine [Nac] 500 mg PO DAILY 06/27/22 [History] Calcium(Unk Dose) 2 cap PO DAILY 06/27/22 [History] Cyanocobalamin [Vitamin B-12 Injection] 1,000 mcg IM Q30D 02/02/24 [History] Mesalamine [Pentasa] 1,000 mg PO QID 02/02/24 [History] Rivaroxaban [Xarelto] 10 mg PO HS 02/02/24 [History] Vit C/E/Zn/Coppr/Lutein/Zeaxan [Preservision Areds 2 Softgel] 1 cap PO BID 02/02/24 [History] Pantoprazole [Protonix] 40 mg PO DAILY #30 tab 02/04/24 [Rx] Follow up Appointment(s)/Referral(s): Virgilio Fishman [STAFF PHYSICIAN] - 1 Week (Please contact office on Monday to make follow-up appt. Office closed at time of discharge. ) Daniel Perez MD [Primary Care Provider] - 1-2 days (Please contact office on Monday to make follow-up appt. Office closed at time of discharge. ) Brayden Vera DO [Medical Doctor] - 1 Week (Please contact office on Monday to make follow-up appt. to arrange for outpatient endoscopy. Office closed at time of discharge. ) Ambulatory/Diagnostic Orders: Complete Blood Count w/diff [LAB.AMB] Time Frame: 3 Days, Location: None Selected Patient Instructions/Handouts: Pantoprazole (By mouth), Anemia (DC) Activity/Diet/Wound Care/Special Instructions: Keep your appt for iron infusion on Monday. Come back to the ED for chest pain, SOB, palpitations, dizziness. Discharge Disposition: HOME SELF-CARE
== END 2024-02-04 14:49 | disposition home or self-care (01) | DRG 385 ==
LOC: EC 16:28 → 5NMEDONC 18:24
PROVIDERS: ADMIT Internal Medicine; ATTEND Internal Medicine
PROC: 30233N1 Transfusion of Nonautologous Red Blood Cells into Peripheral Vein, Percutaneous Approach (ICD-10-PCS; principal; 2024-02-02)
DX: K50.911 Crohn's disease, unspecified, with rectal bleeding (principal); K57.33 Diverticulitis of large intestine without perforation or abscess with bleeding; N17.9 Acute kidney failure, unspecified; E87.1 Hypo-osmolality and hyponatremia; D68.59 Other primary thrombophilia; E53.8 Deficiency of other specified B group vitamins; D50.0 Iron deficiency anemia secondary to blood loss (chronic); I25.10 Atherosclerotic heart disease of native coronary artery without angina pectoris; I10 Essential (primary) hypertension; E89.0 Postprocedural hypothyroidism; K44.9 Diaphragmatic hernia without obstruction or gangrene; Z79.890 Hormone replacement therapy; Z79.01 Long term (current) use of anticoagulants; Z86.711 Personal history of pulmonary embolism; Z86.718 Personal history of other venous thrombosis and embolism; Z87.11 Personal history of peptic ulcer disease; Z90.710 Acquired absence of both cervix and uterus; Z93.2 Ileostomy status; Z90.49 Acquired absence of other specified parts of digestive tract; Z87.19 Personal history of other diseases of the digestive system
CPT/HCPCS: 36415; 36430; 80048; 80053; 82728; 83010; 83540; 83550; 83615; 83735; 84443; 84466; 84484; 85025; 85045; 85610; 85730; 86850; 86900; 86901; 86920; 93005; 99285

== ENCOUNTER 2024-03-13 06:49 | Day surgery (SDC) | payer MEDICARE ==
[2024-03-13] MEDS: IV FLUID CONTINUATION 1,000 ML IV ONE (07:01)
[2024-03-13 07:07] VITALS: TEMP 96.9
[2024-03-13] MEDS: LACTATED RINGERS 1,000 ML IV SCH (07:16)
[2024-03-13] MEDS ORDERED: PROPOFOL 10 MG/ML 20 ML VIAL IV ONE (07:44)
[2024-03-13] MEDS ORDERED: LIDOCAINE 1% INJ 10MG/ML (20 ML MDV) ONE (07:44)
--- NOTE | 2024-03-13 08:12 | P.PCN ---
Date of Procedure: 03/13/24 Procedure(s) Performed: Brief history: Patient is a pleasant 69-year-old white female scheduled for an elective upper endoscopy as well as ileoscopy as a part of evaluation of severe iron deficiency anemia/GERD and intermittent bleeding from the ileostomy stoma. Recently was noted to have hemoglobin of 6.5 g/dL. She has history of DVT/PE and is on Xarelto for 2 years. Patient has history of Crohn's colitis for which she underwent total proctoscopy colectomy with ileostomy 40 years ago. Procedure performed: Esophagogastroduodenoscopy with biopsy Ileoscopy with biopsy and argon plasma coagulation Preoperative diagnosis: Iron deficiency anemia Intermittent bleeding from the ileostomy stoma Anesthesia: MAC Procedure: After informed consent was obtained from the patient was brought into the endoscopy unit and IV sedation was administered by anesthesia under continuous monitoring. Initially upper endoscopy was done. The Olympus GF 160 video endoscope was inserted inserted into the mouth and esophagus intubated without any difficulty and was gradually advanced into the stomach and duodenum and carefully examined. The bulb and second part of the duodenum appeared normal. The scope was then withdrawn into the stomach adequately insufflated with air and upon careful examination the antrum had a 1 cm clean-based ulceration with no active bleeding and biopsies were done from this area. Mucosa body, cardia and fundus appeared normal. The scope was then withdrawn into the esophagus. The GE junction was located at 40 cm to the incisors. It appeared regular with no erythema erosions or ulcerations. Rest of the esophagus appeared normal. Patient tolerated the procedure well. At this time the patient continued to remain sedation. Initial digital rectal examination of the stoma revealed active oozing from the mucosa of the stoma at the junction with the skin and no mucosal abnormalities identified. The upper scope was then inserted into the stoma and gently advanced about 40 cm into the distal ileum. There were 2 superficial ulcerations noted at 10 cm from the stoma and these were biopsied. Rest of the distal ileum appeared normal. There was some active oozing noted on the stoma itself on the inferior aspect at 5 o'clock position at the junction with the skin and this was cauterized using argon plasma. Patient tolerated the procedure well. Impression: 1. Upper endoscopy revealed 1 cm clean-based antral ulcer status post biopsy 2. Ileoscopy revealed active oozing on the stoma at the junction of the skin s/p argon plasma coagulation. Also there is a 2 superficial ulcerations noted in the distal ileum 10 cm from the stoma which were biopsied. Recommendations: Findings of this examination were discussed with the patient as well as her family. She was advised to follow-up with the biopsy results. She will be seen in the office in 2 weeks. If she continues to have active bleeding we will refer her to colorectal surgeon for further management.
[2024-03-13 09:02] VITALS: RESP 18
[2024-03-13 09:08] VITALS: BP 127/72; PULSE 62
== END 2024-03-13 09:23 | disposition home or self-care (01) ==
LOC: ORWHC2ENDO 06:49
PROVIDERS: ATTEND Internal Medicine Gastroenterology
CPT/HCPCS: 43239; 44380; 88305; 88342